=== PATIENT | male | born 1935 | race Two or more races ===

== ENCOUNTER 2018-05-15 00:04 | Inpatient (IN) | payer MEDICARE, OTHER ==
[2018-05-15] MEDS ORDERED: NALOXONE 0.4 MG/ML 1 ML VIAL IV PRN (00:17)
--- NOTE | 2018-05-15 00:22 | ED ---
General Adult HPI - General Stated complaint: weakness Time Seen by Provider: 05/15/18 00:16 - History of Present Illness Initial comments: Julito is an 82-year-old gentleman who presented to an outside hospital for evaluation of fever and cough. He was evaluated as outside hospital and found to have sepsis secondary to aspiration pneumonia in addition he was noted to be in A. fib with RVR and was hypotensive upon arrival to the ER. Heart rate and blood pressure responded to fluids he was treated with broad-spectrum antibiotics Zosyn and vancomycin and was subsequently transferred to our facility for definitive care. Per the medical record that came with the patient he does have a history of swallowing difficulty he is supposed to be on nectar thick liquids. - Related Data Home Medications Medication Instructions Recorded Confirmed Furosemide [Lasix] 80 mg PO DAILY 06/01/15 06/01/15 Levothyroxine Sodium [Synthroid] 25 mcg PO DAILY 06/01/15 06/01/15 Omeprazole 20 mg PO DAILY 06/01/15 06/01/15 Pravastatin Sodium [Pravachol] 40 mg PO DAILY 06/01/15 06/01/15 Previous Rx's Medication Instructions Recorded ALPRAZolam [Xanax] 0.25 mg PO DAILY PRN #30 tab 06/06/15 Albuterol Nebulized [Ventolin 2.5 mg INHALATION RT-QID nebu 06/06/15 Nebulized] Budesonide [Pulmicort] 0.5 mg INHALATION RT-BID nebu 06/06/15 Insulin NPH/Reg Insulin 70/30 30 unit SQ AC-BRKFST vial 06/06/15 [humuLIN 70/30 VIAL] Insulin NPH/Reg Insulin 70/30 30 unit SQ AC-SUPPER vial 06/06/15 [humuLIN 70/30 VIAL] Lisinopril [Zestril] 5 mg PO DAILY #0 tab 06/06/15 Allergies Allergy/AdvReac Type Severity Reaction Status Date / Time No Known Allergies Allergy Verified 06/01/15 18:26 Review of Systems ROS Statement: Those systems with pertinent positive or pertinent negative responses have been documented in the HPI. Limitations: ROS unobtainable due to patients medical condition (Dementia) Past Medical History Past Medical History: Heart Failure (Chronic diastolic heart failure), Dementia, Diabetes Mellitus, GERD/Reflux, Hyperlipidemia, Hypertension, Osteoarthritis (OA), Sleep Apnea/CPAP/BIPAP, Thyroid Disorder, Vascular Disorder History of Any Multi-Drug Resistant Organisms: None Reported Past Surgical History: Unable to Obtain Additional Past Surgical History / Comment(s): Bilateral cataract surgery as well as left eye glaucoma surgery. Past Anesthesia/Blood Transfusion Reactions: No Reported Reaction Past Psychological History: No Psychological Hx Reported Smoking Status: Never smoker Past Alcohol Use History: None Reported Past Drug Use History: None Reported - Past Family History Father Family Medical History: AICD/Pacemaker (Father at age of 91 and he had a permanent pacemaker placement) Mother Family Medical History: No Reported History (Mother at age of 88 from old age) Sister(s) Family Medical History: No Reported History (Patient has 2 sisters with no major medical problems) Daughter(s) Family Medical History: No Reported History (Patient has 3 daughters no major medical problems) Son(s) Family Medical History: No Reported History (Patient has one son no major medical problems) General Exam - General Exam Comments Initial Comments: Physical Exam GENERAL: Chronically Ill-appearing elderly male Orbitally obese, wet cough on exam HENT: Normocephalic, Atraumatic. Poor dentition EYES: PERRL, EOMI PULMONARY: Worse breath sounds in all lung jason Transmitted upper airway sounds CARDIOVASCULAR: Irregularly irregular ABDOMEN: Obese SKIN: Skin is clear with no lesions or rashes and otherwise unremarkable. : Deferred NEUROLOGIC: Oriented to self MUSCULOSKELETAL: Normal extremities with adequate strength and full range of motion. No lower extremity swelling or edema. No calf tenderness. PSYCHIATRIC: Normal psychiatric evaluation. Limitations: no limitations Course Vital Signs 05/15/18 00:20 Temperature 100.2 F H Pulse Rate 56 L Respiratory 20 Rate Blood Pressure 118/83 O2 Sat by Pulse 98 Oximetry EKG Findings - EKG Comments: EKG Findings:: EEG was obtained at 12:30 AM, rate is 69 rhythm is wide-complex appears to be ventricularly paced, QRS 152, QTc [address] elevations or depressions and no evidence of acute ischemia or infarction. Medical Decision Making - Medical Decision Making She care was discussed with transferring physician X and patient arrived to the hospital hemodynamically unstable tachycardic hypotensive with pneumonia. Labs were significant for leukocytosis and lactic acidosis patient met sepsis criteria he was treated with IV fluid think a myosin Zosyn and transfer to our facility for further evaluation next Upon initial evaluation patient's blood pressure has improved he remains febrile his heart rate has improved he has no complaints upon arrival he does confirm that he is DO NOT RESUSCITATE he also has paperwork to converse he is DO NOT RESUSCITATE Repeat labs were obtained care was discussed with admitting physician Dr. Zuniga per Dr. Jenaro Stanley's preference. Dr. Zuniga accepts the admission for elderly male with aspiration pneumonia and sepsis. Disposition Clinical Impression: Sepsis, Aspiration pneumonia Disposition: ADMITTED IP TO THIS HOSP Condition: Stable Is patient prescribed a controlled substance at d/c from ED?: No Referrals: Jenaro Stanley MD [Primary Care Provider] - 1-2 days
[2018-05-15 01:14] LABS: Basophils % (A) 0 %; Eosinophils # (A) 0.1 k/uL (0-0.7); Eosinophils % (A) 1 %; HCT 50.4 % (39.0-53.0); Lymphocytes # (A) 1.5 k/uL (1.0-4.8); Lymphocytes % (A) 12 %; MCH 30.2 pg (25.0-35.0); MCHC 31.8 g/dL (31.0-37.0); MCV 94.9 fL (80.0-100.0); Mean Platelet Volume 6.7; Monocytes # (A) 0.8 k/uL (0-1.0); Monocytes % (A) 7 %; Neutrophils # (A) 9.4 k/uL (1.3-7.7); Neutrophils % (A) 79 %; Platelet Count 169 k/uL (150-450); RBC 5.31 m/uL (4.30-5.90); RDW 14.8 % (11.5-15.5); WBC 11.9 k/uL (3.8-10.6)
[2018-05-15] MEDS ORDERED: ACETAMINOPHEN IV (For NPO) 1,000 MG in EMPTY BAG 1 BAG IVPB ONE (01:23)
[2018-05-15 01:29] LABS: Calcium 8.5 mg/dL (8.4-10.2); Total Bilirubin 0.9 mg/dL (0.2-1.3); Total Protein 6.1 g/dL (6.3-8.2)
[2018-05-15 01:31] LABS: INR 4.2 (<1.2); Partial Thromboplastin Time 45.1 sec (22.0-30.0); Potassium 4.6 mmol/L (3.5-5.1); Prothrombin Time 40.1 sec (9.0-12.0)
[2018-05-15 02:14] LABS: RBC,Urine 3 /hpf (0-5); Squamous Epithelial Cell,Urine 3 /hpf (0-4); WBC,Urine 30 /hpf (0-5)
[2018-05-15 02:15] LABS: Amorphous Sediment,Urine Few /hpf; Bacteria,Urine Moderate /hpf
[2018-05-15] MEDS ORDERED: SODIUM CHLORIDE 0.9% 500 ML 500 ML IV ONE ×2 (03:47→07:50)
[2018-05-15 04:15] LABS: Appearance,Urine Slightly Cloudy (Clear); Color,Urine Light Yellow; Protein,Urine Negative (Negative)
[2018-05-15] MEDS: SODIUM CHLORIDE 0.9% 1,000 ML IV SCH ×2 (04:15→11:12)
[2018-05-15 04:16] LABS: Bilirubin,Urine Negative (Negative); Blood,Urine Small (Negative); Glucose,Urine (UA) 1+ (Negative); Ketones,Urine Negative (Negative)
[2018-05-15 04:17] LABS: Leukocyte Esterase,Urine Moderate (Negative); Nitrite,Urine Positive (Negative); Urobilinogen,Urine <2.0 mg/dL (<2.0)
--- NOTE | 2018-05-15 04:22 | XR ---
EXAM: XR Chest, 1 View CLINICAL HISTORY: Aspiration PNA, judaism lung sounds. TECHNIQUE: Frontal view of the chest. COMPARISON: CXR dated 06/03/2015. FINDINGS: Lungs: Low lung volumes with probable basilar atelectasis (L>R). Retrocardiac opacity. Stable right midlung nodule/granuloma. Pleural space: Small pleural effusions not excluded. No pneumothorax. Heart: Mildly enlarged cardiac silhouette. Mediastinum: Unremarkable. Bones/joints: Stable osseous structures. Tubes, lines and devices: Stable cardiac device. IMPRESSION: 1. Low lung volumes with probable basilar atelectasis and left lung base/retrocardiac opacity which may be related to atelectasis, infiltrate, aspiration or other etiology. Recommend clinical correlation and attention on follow-up imaging. 2. Stable right midlung nodule/granuloma. 3. Small pleural effusions not excluded. 4. Mildly enlarged cardiac silhouette with stable cardiac device.
[2018-05-15] MEDS ORDERED: IPRATROPIUM-ALBUTEROL 3 ML NEB INHALATION PRN (07:55)
[2018-05-15] MEDS: BUDESONIDE 1 MG/2 ML NEBU INHALATION SCH ×2 (08:27→21:08)
[2018-05-15] MEDS: IPRATROPIUM-ALBUTEROL 3 ML NEB INHALATION SCH ×3 (08:28→21:08)
[2018-05-15 08:30] LABS: Glucose,Whole Blood 81 mg/dL (75-99)
[2018-05-15] MEDS ORDERED: BISACODYL 10 MG SUPP RECTAL PRN (08:43)
[2018-05-15] MEDS ORDERED: ACETAMINOPHEN TAB 325 MG TAB PO PRN (08:43)
[2018-05-15] MEDS ORDERED: NON-FORMULARY DRUG (Magnesium Hydroxide [Milk Of Magnesia] 2,400 MG) PO PRN (08:43)
[2018-05-15] MEDS ORDERED: NA PHOS,M-B/NA PHOS,DI-BA 133 ML ENEMA RECTAL PRN (08:43)
[2018-05-15] MEDS ORDERED: MAGNESIUM HYDROXIDE 2,400 MG/10 ML CUP PO PRN (08:49)
[2018-05-15] MEDS ORDERED: OSELTAMIVIR 75 MG CAP PO SCH (09:00)
[2018-05-15] MEDS: PIPERACILLIN-TAZOBACTAM 3.375 GM in SODIUM CHLORIDE 0.9% 100 ML IVPB SCH ×2 (11:12→16:27)
--- NOTE | 2018-05-15 12:49 | FL ---
EXAMINATION TYPE: FL barium swallow w video DATE OF EXAM: 05/15/2018 MODIFIED SWALLOW / DEGLUTITION STUDY CLINICAL HISTORY: Dysphagia. TECHNIQUE: Deglutition study is performed utilizing thin liquid barium, honey and nectar thick liqui d barium and barium thick applesauce. 1.45 minutes of fluoroscopy time was utilized. 0 fluoroscopic i mages were saved as the exam was video recorded. COMPARISON: None. FINDINGS: The oral and pharyngeal phases show delayed initiation and propagation with all modalities tested. Premature spill to the level of the vallecula was seen. Normal mastication is seen with solid modalities tested. Trace and transient laryngeal penetration was noted with the honey thick barium c onsistency with large vallecular residuals. Within the remainder the examination there was no evidenc e of penetration or aspiration with any modality tested. Large volume vallecular residual was appreci ated throughout the exam, worsened with thicker substances. IMPRESSION: 1. Trace and transient laryngeal penetration. 2. Large degree vallecular residuals, increased in volume with increased viscosity. 3. Poor vallecular excursion. 4. Premature spill to the level of vallecula. Please refer to speech therapist notes for further deta ils if necessary.
[2018-05-15] MEDS: INSULIN ASPART (NovoLOG) 100 UNIT/ML VIAL SQ SCH ×3 (12:51→21:45)
[2018-05-15 12:52] LABS: Glucose,Whole Blood 123 mg/dL (75-99)
[2018-05-15] MEDS: ARTIFICIAL TEARS-HYPROMELLOSE DROPS 15 ML BTL BOTH EYES SCH ×3 (12:53→21:43)
--- NOTE | 2018-05-15 13:17 | P.HPIM ---
History of Present Illness H&P Date: 05/15/18 Chief Complaint: Acute respiratory failure, aspiration pneumonia, sepsis, A. fib with RVR 82-year-old male one of Dr. Jenaro Stanley's patient who has history of mild obesity history of dementia congestive heart failure hypertension hyperlipidemia and vascular disease who was transferred from [facility] because of aspiration pneumonia sepsis and A. fib with RVR with significant hypotension arrived to the emergency room found to be in A. fib with pulse rate running in the 70s and 80s patient blood pressure was significantly bit low had to hold some of his blood pressure medicine. Patient was already on gram- negative coverage originally admitted to the floor shortly after blood pressure become very low with elevated lactic acid despite using 1 L of IV fluid than 500 bolus continue to work on blood pressure in the 70s. Patient was seen by the 18 and stabilized slight bed continue IV hydration will consult pulmonary and cardiology for the A. fib at this point awaiting for the final culture. Review of Systems CONSTITUTIONAL: Mildly obese laying in bed with head 45 up also patient has low-grade fever. EYES: No icterus sclerae, no conjunctivitis. EARS, NOSE, MOUTH, THROAT, and FACE: No sore throat, lymphadenopathy, carotid bruits or deformity. RESPIRATORY: Significant shortness of breath cough wheezes. CARDIOVASCULAR: Positive shortness of breath PND orthopnea and edema with mild palpitation and A. fib. GASTROINTESTINAL: Mild abdominal pain with nausea no vomiting or diarrhea. GENITOURINARY: Negative for Hematuria or UTI, no kidney stones. INTEGUMENT/BREAST: Negative for any muscular injury with mild osteoarthritis.. HEMATOLOGIC/LYMPHATIC: Negative for bleed or purpura. MUSCULOSKELTAL: Negative for Myalgia or arthralgia. NEURLOGICAL: History of dementia with the mild altered mental status. BEHAVIORAL/PSYCH: Negative. ENDOCRINE: Negative. Past Medical History Past Medical History: Heart Failure (Chronic diastolic heart failure), Dementia, Diabetes Mellitus, GERD/Reflux, Hyperlipidemia, Hypertension, Osteoarthritis (OA), Sleep Apnea/CPAP/BIPAP, Thyroid Disorder, Vascular Disorder History of Any Multi-Drug Resistant Organisms: None Reported Past Surgical History: Unable to Obtain Additional Past Surgical History / Comment(s): Bilateral cataract surgery as well as left eye glaucoma surgery. Past Anesthesia/Blood Transfusion Reactions: No Reported Reaction Past Psychological History: No Psychological Hx Reported Smoking Status: Never smoker Past Alcohol Use History: None Reported Past Drug Use History: None Reported - Past Family History Father Family Medical History: AICD/Pacemaker (Father at age of 91 and he had a permanent pacemaker placement) Mother Family Medical History: No Reported History (Mother at age of 88 from old age) Sister(s) Family Medical History: No Reported History (Patient has 2 sisters with no major medical problems) Daughter(s) Family Medical History: No Reported History (Patient has 3 daughters no major medical problems) Son(s) Family Medical History: No Reported History (Patient has one son no major medical problems) Medications and Allergies Home Medications Medication Instructions Recorded Confirmed Type Acetaminophen Tab [Tylenol Tab] 650 mg PO Q4H PRN 05/15/18 05/15/18 History Artificial Tears-Hypromellose 1 drops BOTH EYES 05/15/18 05/15/18 History [Artificial Tear Drops] TID@1100,1700,2100 Bisacodyl 10 mg RECTAL DAILY PRN 05/15/18 05/15/18 History Divalproex Sodium [Depakote 375 mg PO TID@0700,1500,2300 05/15/18 05/15/18 History Sprinkle] Insulin Glargine,Hum.rec.anlog 25 unit SQ HS@199905/15/18 05/15/18 History [Lantus Solostar] Insulin Glargine,Hum.rec.anlog 40 unit SQ DAILY@0700 05/15/18 05/15/18 History [Lantus Solostar] Magnesium Hydroxide [Milk of 2,400 mg PO DAILY PRN 05/15/18 05/15/18 History Magnesia] Na Phos,M-B/Na Phos,Di-Ba [Fleet 133 ml RECTAL DAILY PRN 05/15/18 05/15/18 History Adult] QUEtiapine [SEROquel] 50 mg PO HS@2100 05/15/18 05/15/18 History Ranitidine HCl [Zantac] 150 mg PO BID@0500,1500 05/15/18 05/15/18 History Sertraline [Zoloft] 25 mg PO DAILY@0700 05/15/18 05/15/18 History Sertraline [Zoloft] 100 mg PO DAILY@0700 05/15/18 03/25/19 History Tamsulosin HCl [Flomax] 0.4 mg PO DAILY@0705/15/18 05/15/18 History Travoprost [Travatan Z 0.004%] 1 drop BOTH EYES HS@199905/15/18 05/15/18 History Warfarin Sodium [Coumadin] 6 mg PO HS@209905/15/18 05/15/18 History Allergies Allergy/AdvReac Type Severity Reaction Status Date / Time No Known Allergies Allergy Verified 05/15/18 08:18 Physical Exam Vitals: Vital Signs Temp Pulse Pulse Resp BP BP BP 05/15/18 12:24 70 107/70 05/15/18 08:44 76 05/15/18 08:31 70 05/15/18 07:43 70 112/67 05/15/18 07:30 69 72/47 05/15/18 07:20 69 81/49 05/15/18 07:00 98.3 F 69 93/58 05/15/18 05:25 69 82/48 05/15/18 04:59 69 81/51 05/15/18 04:30 72 87/48 05/15/18 03:57 69 94/57 05/15/18 03:10 98.7 F 18 81/48 79/39 05/15/18 02:26 69 20 117/69 05/15/18 01:01 69 22 133/78 05/15/18 00:20 100.2 F H 56 L 20 118/83 Pulse Ox 05/15/18 12:24 05/15/18 08:44 05/15/18 08:31 96 05/15/18 07:43 98 05/15/18 07:30 96 05/15/18 07:20 98 05/15/18 07:00 97 05/15/18 05:25 05/15/18 04:59 05/15/18 04:30 05/15/18 03:57 05/15/18 03:10 97 05/15/18 02:26 98 05/15/18 01:01 98 05/15/18 00:20 98 Intake and Output 05/14/18 05/15/18 05/15/18 22:59 06:59 14:59 Intake Total 575 Balance 575 Intake: Intake, IV Titration 575 Amount Sodium Chloride 0.9% 1, 75 000 ml @ 75 mls/hr IV . [id number] Rx#:[id number] Sodium Chloride 0.9% 500 500 ml 500 ml @ 999 mls/hr IV .Q31M ONE Rx#:[id number] Other: Voiding Method Incontinent # Voids 1 Weight 100.244 kg General Appearance: Mildly obese elderly laying in bed in mild respiratory distress. Neck HEENT: Supple, no lymphadenopathy, no thyroid enlargement, no carotid b ruits. Lungs: Decreased breath some relative final hyposmotic crackles in the bases specially in the right side. Chest Wall: Decrease expansion with deep inspiration no tenderness and no deformity was found on exam, no costochondral pain or discomfort. Heart: Irregular rate and rhythm, S1, S2 normal, no murmur, rub or gallop. Positive JVD Back: Symmetric, no curvature, ROM normal, no CVA tenderness. Abdomen: Slightly distended with no tenderness., bowel sounds active all four quadrants, no masses, no organomegaly. Extremities: Extremities normal, atraumatic, no cyanosis or edema. Pulses: 2+ and symmetric. Skin: Skin color, texture, tugor normal, no rashes or lesions. Neurologic: Alert oriented with slight confusion cranial nerves II through XII intact, no motor deficit, no abnormal balance or gait. Results CBC & Chem 7: 05/15/18 00:50 05/15/18 00:50 Labs: Abnormal Lab Results - Last 24 Hours (Table) 05/15/18 05/15/18 05/15/18 Range/Units 00:50 00:50 00:50 WBC 11.9 H (3.8-10.6) k/uL Neutrophils # 9.4 H (1.3-7.7) k/uL PT 40.1 H (9.0-12.0) sec INR 4.2 H (<1.2) APTT 45.1 H (22.0-30.0) sec Glucose 120 H (74-99) mg/dL POC Glucose (mg/dL) (75-99) mg/dL Total Protein 6.1 L (6.3-8.2) g/dL Albumin 3.0 L (3.5-5.0) g/dL Urine Glucose (UA) (Negative) Urine WBC (0-5) /hpf Amorphous Sediment (None) /hpf Urine Bacteria (None) /hpf Influenza Type A RNA (Not Detectd) 05/15/18 05/15/18 05/15/18 Range/Units 01:08 08:00 12:40 WBC (3.8-10.6) k/uL Neutrophils # (1.3-7.7) k/uL PT (9.0-12.0) sec INR (<1.2) APTT (22.0-30.0) sec Glucose (74-99) mg/dL POC Glucose (mg/dL) 123 H (75-99) mg/dL Total Protein (6.3-8.2) g/dL Albumin (3.5-5.0) g/dL Urine Glucose (UA) 1+ H (Negative) Urine WBC 30 H (0-5) /hpf Amorphous Sediment Few H (None) /hpf Urine Bacteria Moderate H (None) /hpf Influenza Type A RNA Detected H (Not Detectd) Microbiology - Last 24 Hours (Table) 05/15/18 01:08 Urine Culture - Preliminary Urine,Voided Thrombosis Risk Factor Assmnt - DVT/VTE Prophylaxis DVT/VTE Prophylaxis: Pharmacologic Prophylaxis ordered, Mechanical Prophylaxis ordered Assessment and Plan Plan: 1 acute respiratory failure: Combination of aspiration pneumonia, influenza, CHF and COPD. 2 aspiration pneumonia: Most likely gram-negative was start patient on Zosyn and if needed can benefit from being on Levaquin and second agent. 3 sepsis with improvement lactic acid continue hydration and fluid resuscitation for now. 4 influenza A patient will continue be in isolation start Tamiflu continue O2 and updraft treatment. 5 COPD exacerbation: Continue patient on DuoNeb and Pulmicort no need for steroid tapering dose of this point. 6 A. fib with RVR: Pulse rate was slightly but elevated not been able to take his beta eboni continue ekg monitor tech cardiology consultation and if needed can be started on Cardizem drip. Continue warfarin keep watching his coagulation. 7 worsening memory loss: Patient apparently doing well on Seroquel had for now. 8 BPH: Remain on Flomax with no urinary retention. 9 depression: Still on Zoloft and Seroquel. 10 type 2 diabetes: Remain on Levemir and Humalog continue patient with Accu- Chek sliding scales as well. 11 coagulation: Patient is slightly but over coagulated currently with INR is high we'll hold warfarin for now continue to watch his PT/INR on regular basis. 12 DVT prophylaxis: Remain on anticoagulation. 13 GI prophylaxis: Patient will be continue on pantoprazole 40 mg daily. 14 question Lev UTI: Patient is on IV antibiotic currently waiting for the final urine culture. CODE STATUS: DO NOT RESUSCITATE. Admit patient to inpatient status for more than 2 nights.
--- NOTE | 2018-05-15 14:12 | P.CRDCN ---
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 He follows with Dr. Gilmore in the office. We have been asked to see him in consultation for an episode of atrial fibrillation with rapid ventricular response. Patient is a poor historian and appears confused at baseline, unable to give any information regarding current hospitalization. Information is obtained from nursing staff and medical record. He was transferred here from [facility] for fever, cough, aspiration pneumonia and afib. Upon arrival he was maintaining atrial fibrillation with a controlled ventricular response heart rate 69. Blood pressure was 118/83 and was febrile 100.2F and is positive for Influenza A. He has been started on antibiotics and undergone a barium swallow study revealing trace and changes. Pharyngeal penetration, large degree of vallecular residuals, poor vallecular excursion, p rematures to the level of the ocular. EKG reveals ventricular paced rhythm with underlying atrial fibrillation, heart rate is 69. Chest x-ray reveals low lung volumes with probable basilar atelectasis and left lung retrograde obesity, stable right mid lung nodule, small pleural effusions and mildly enlarged cardiac silhouette. Laboratory data reviewed, WBC 11.9, hemoglobin 16, platelets 169, INR 4.2, sodium 137, potassium 4.6, creatinine 1.08. Current cardiac medications include Coumadin 6 mg daily. Most recent echocardiogram obtained May 2015 reveals preserved LV systolic function with EF 50-55%, mild MR, mild TR and mild aortic stenosis with a mean gradient of 15 mmHg. Unable to obtain accurate review of systems due to altered mental status. Blood pressure 170/70 heart rate 70 afebrile maintaining oxygen saturation on nasal cannula GENERAL: This is a 82-year-old male in no apparent distress at the time of my examination. HEENT: Head is atraumatic, normocephalic. Pupils are equal, round. Sclerae anicteric. Conjunctivae are clear. Mucous membranes of the mouth are moist. Neck is supple. There is no jugular venous distention. No carotid bruit is heard. LUNGS: Bibasilar rales and coarse rhonchi throughout. No wheezes. No chest wall tenderness is noted on palpation or with deep breathing. HEART: Regular rate and rhythm with systolic ejection murmur at the base, no rubs or gallops. S1 and S2 heard. ABDOMEN: Soft, nontender. Bowel sounds are heard. No organomegaly noted. EXTREMITIES: 1+ bilateral lower extremity edema and erythma. No calf tenderness noted. VASCULAR: Radial and dorsalis pedis pulses palpated, no evidence of clubbing. NEUROLOGIC: Patient is awake, alert and oriented x3. ASSESSMENT Chronic persistent atrial fibrillation on long-term anticoagulation with coumadin Supratherapeutic INR Acute aspiration pneumonia Influenza A Febrile illness Leukocytosis Altered mental status History of complete heart block status post permanent pacemaker implantation Diabetes mellitus Hypertension Dyslipidemia Obstructive sleep apnea Chronic diastolic heart failure PLAN Check NTproBNP, if normal no heart failure currently. Atrial fibrillation is chronic and persistent, his documented heart rates have been well controlled. Discontinue coumadin and consider Eliquis once INR is below 2. Repeat echocardiogram and doppler study to assess cardiac structure and function. Initiate on atorvastatin 40 mg daily. Further recommendations to follow based upon clinical course. Thank you kindly for this consultation. Nurse Practitioner note has been reviewed, I agree with a documented findings and plan of care. Patient was seen and examined. Past Medical History Past Medical History: Heart Failure (Chronic diastolic heart failure), Dementia, Diabetes Mellitus, GERD/Reflux, Hyperlipidemia, Hypertension, Osteoarthritis (OA), Sleep Apnea/CPAP/BIPAP, Thyroid Disorder, Vascular Disorder History of Any Multi-Drug Resistant Organisms: None Reported Past Surgical History: Unable to Obtain Additional Past Surgical History / Comment(s): Bilateral cataract surgery as well as left eye glaucoma surgery. Past Anesthesia/Blood Transfusion Reactions: No Reported Reaction Past Psychological History: No Psychological Hx Reported Smoking Status: Never smoker Past Alcohol Use History: None Reported Past Drug Use History: None Reported - Past Family History Father Family Medical History: AICD/Pacemaker (Father at age of 91 and he had a permanent pacemaker placement) Mother Family Medical History: No Reported History (Mother at age of 88 from old age) Sister(s) Family Medical History: No Reported History (Patient has 2 sisters with no major medical problems) Daughter(s) Family Medical History: No Reported History (Patient has 3 daughters no major m edical problems) Son(s) Family Medical History: No Reported History (Patient has one son no major medical problems) Medications and Allergies Home Medications Medication Instructions Recorded Confirmed Type Acetaminophen Tab [Tylenol Tab] 650 mg PO Q4H PRN 05/15/18 05/15/18 History Artificial Tears-Hypromellose 1 drops BOTH EYES 05/15/18 05/15/18 History [Artificial Tear Drops] TID@1100,1700,2100 Bisacodyl 10 mg RECTAL DAILY PRN 05/15/18 05/15/18 History Divalproex Sodium [Depakote 375 mg PO TID@0700,1500,2300 05/15/18 05/15/18 History Sprinkle] Insulin Glargine,Hum.rec.anlog 25 unit SQ HS@199905/15/18 05/15/18 History [Lantus Solostar] Insulin Glargine,Hum.rec.anlog 40 unit SQ DAILY@0705/15/18 05/15/18 History [Lantus Solostar] Magnesium Hydroxide [Milk of 2,400 mg PO DAILY PRN 05/15/18 05/15/18 History Magnesia] Na Phos,M-B/Na Phos,Di-Ba [Fleet 133 ml RECTAL DAILY PRN 05/15/18 05/15/18 History Adult] QUEtiapine [SEROquel] 50 mg PO HS@209905/15/18 05/15/18 History Ranitidine HCl [Zantac] 150 mg PO BID@0500,1500 05/15/18 05/15/18 History Sertraline [Zoloft] 25 mg PO DAILY@0700 05/15/18 05/15/18 History Sertraline [Zoloft] 100 mg PO DAILY@0700 05/15/18 05/15/18 History Tamsulosin HCl [Flomax] 0.4 mg PO DAILY@0700 05/15/18 05/15/18 History Travoprost [Travatan Z 0.004%] 1 drop BOTH EYES HS@199905/15/18 05/15/18 History Warfarin Sodium [Coumadin] 6 mg PO HS@209905/15/18 05/15/18 History Allergies Allergy/AdvReac Type Severity Reaction Status Date / Time No Known Allergies Allergy Verified 05/15/18 08:18 Physical Exam Vitals: Vital Signs Temp Pulse Pulse Resp BP BP BP 05/15/18 12:24 70 107/70 05/15/18 08:44 76 05/15/18 08:31 70 05/15/18 07:43 70 112/67 05/15/18 07:30 69 72/47 05/15/18 07:20 69 81/49 05/15/18 07:00 98.3 F 69 93/58 05/15/18 05:25 69 82/48 05/15/18 04:59 69 81/51 05/15/18 04:30 72 87/48 05/15/18 03:57 69 94/57 05/15/18 03:10 98.7 F 18 81/48 79/39 05/15/18 02:26 69 20 117/69 05/15/18 01:01 69 22 133/78 05/15/18 00:20 100.2 F H 56 L 20 118/83 Pulse Ox 05/15/18 12:24 05/15/18 08:44 05/15/18 08:31 96 05/15/18 07:43 98 05/15/18 07:30 96 05/15/18 07:20 98 05/15/18 07:00 97 05/15/18 05:25 05/15/18 04:59 05/15/18 04:30 05/15/18 03:57 05/15/18 03:10 97 05/15/18 02:26 98 05/15/18 01:01 98 05/15/18 00:20 98 Intake and Output 05/14/18 05/15/18 05/15/18 22:59 06:59 14:59 Intake Total 575 Balance 575 Intake: Intake, IV Titration 575 Amount Sodium Chloride 0.9% 1, 75 000 ml @ 75 mls/hr IV . [id number] [facility] Rx#:[id number] Sodium Chloride 0.9% 500 500 ml 500 ml @ 999 mls/hr IV .Q31M [facility] Rx#:[id number] Other: Voiding Method Incontinent # Voids 1 Weight 100.244 kg Results 05/15/18 00:50 05/15/18 00:50 Cardiac Enzymes 05/15/18 Range/Units 00:50 AST 36 (17-59) U/L Coagulation 05/15/18 Range/Units 00:50 PT 40.1 H (9.0-12.0) sec APTT 45.1 H (22.0-30.0) sec CBC 05/15/18 Range/Units 00:50 WBC 11.9 H (3.8-10.6) k/uL RBC 5.31 (4.30-5.90) m/uL Hgb 16.0 (13.0-17.5) gm/dL Hct 50.4 (39.0-53.0) % Plt Count 169 (150-450) k/uL Comprehensive Metabolic Panel 05/15/18 Range/Units 00:50 Sodium 137 (137-145) mmol/L Potassium 4.6 (3.5-5.1) mmol/L Chloride 106 (98-107) mmol/L Carbon Dioxide 25 (22-30) mmol/L BUN 20 (9-20) mg/dL Creatinine 1.08 (0.66-1.25) mg/dL Glucose 120 H (74-99) mg/dL Calcium 8.5 (8.4-10.2) mg/dL AST 36 (17-59) U/L ALT 26 (21-72) U/L Alkaline Phosphatase 95 (38-126) U/L Total Protein 6.1 L (6.3-8.2) g/dL Albumin 3.0 L (3.5-5.0) g/dL Current Medications Generic Name Dose Route Start Last Admin Trade Name Freq PRN Reason Stop Dose Admin Acetaminophen 650 mg 05/15/18 08:43 Tylenol Tab PO Q4H PRN Pain or Fever > 100.5 Albuterol/Ipratropium 3 ml 05/15/18 08:00 05/15/18 08:28 Duoneb 0.5 Mg-3 Mg/3 Ml Soln INHALATION 3 ml RT-TID [facility] Administration Albuterol/Ipratropium 3 ml 05/15/18 07:55 Duoneb 0.5 Mg-3 Mg/3 Ml Soln INHALATION RT-QID PRN Shortness Of Breath Or Wheezing Artificial Tears 1 drops 05/15/18 11:00 05/15/18 12:53 Artificial Tear Drops BOTH EYES 1 drops TID@1100,1700,2100 [facility] Administration Bisacodyl 10 mg 05/15/18 08:43 Dulcolax RECTAL DAILY PRN Constipation Budesonide 1 mg 05/15/18 08:00 05/15/18 08:27 Pulmicort INHALATION 1 mg RT-BID [facility] Administration Divalproex Sodium 375 mg 05/15/18 15:00 Depakote Sprinkle PO TID@0700,1500,2300 [facility] Famotidine 20 mg 05/15/18 15:00 Pepcid PO BID@0500,1500 [facility] Sodium Chloride 1,000 mls @ 100 mls/hr 05/15/18 04:15 05/15/18 11:12 Saline 0.9% IV 100 mls/hr .Q10H [facility] Administration Piperacillin Sod/Tazobactam 100 mls @ 25 mls/hr 05/15/18 08:00 05/15/18 11:12 Sod 3.375 gm/ Sodium Chloride IVPB 25 mls/hr Q8HR [facility] Administration Insulin Aspart 0 unit 05/15/18 12:30 05/15/18 12:51 Novolog SQ Not Given ACHS [facility] Protocol Insulin Detemir 12 unit 05/15/18 20:00 Levemir SQ HS@2000 [facility] Insulin Detemir 20 unit 05/16/18 07:00 Levemir SQ DAILY@0700 [facility] Latanoprost 1 drops 05/15/18 20:00 Xalatan 0.005% BOTH EYES HS@2000 [facility] Magnesium Hydroxide 2,400 mg 05/15/18 08:49 Milk Of Magnesia PO DAILY PRN Constipation Naloxone HCl 0.2 mg 05/15/18 00:17 Narcan IV Q2M PRN Opioid Reversal Oseltamivir Phosphate 75 mg 05/15/18 09:00 05/15/18 11:13 Tamiflu PO 05/19/18 21:01 Not Given Q12HR [facility] Quetiapine Fumarate 50 mg 05/15/18 21:00 Seroquel PO HS@2100 [facility] Sertraline HCl 25 mg 05/16/18 07:00 Zoloft PO DAILY@0700 [facility] Sertraline HCl 100 mg 05/16/18 07:00 Zoloft PO DAILY@0700 [facility] Sodium Biphosphate/Sodium Phosphate 133 ml 05/15/18 08:43 Fleet Adult RECTAL DAILY PRN Constipation Tamsulosin HCl 0.4 mg 05/16/18 07:00 Flomax PO DAILY@0700 [facility] Intake and Output 05/14/18 05/15/18 05/15/18 22:59 06:59 14:59 Intake Total 575 Balance 575 Intake: Intake, IV Titration 575 Amount Sodium Chloride 0.9% 1, 75 000 ml @ 75 mls/hr IV . [id number] [facility] Rx#:[id number] Sodium Chloride 0.9% 500 500 ml 500 ml @ 999 mls/hr IV .Q31M [facility] Rx#:[id number] Other: Voiding Method Incontinent # Voids 1 Weight 100.244 kg 05/15/18 00:50 05/15/18 00:50
--- NOTE | 2018-05-15 16:00 | P.CNPUL ---
History of Present Illness Consult date: 05/15/18 Reason for consult: dyspnea, pneumonia History of present illness: This is an 82-year-old gentleman who presented to the emergency department from an outside facility. The patient was found to have pneumonia and sepsis. He was also in atrial fibrillation with rapid ventricular response. He had hypotension as well. He was given IV fluid resuscitations. The patient is seen and examined. He is a poor historian. He states he does not feel good. He does have a coarse cough. The patient did have fever prior to admission. His chest x-ray shows a left retrocardiac infiltrate. He was also positive for influenza A. Review of Systems All systems: negative Past Medical History Past Medical History: Heart Failure (Chronic diastolic heart failure), Dementia, Diabetes Mellitus, GERD/Reflux, Hyperlipidemia, Hypertension, Osteoarthritis (OA), Sleep Apnea/CPAP/BIPAP, Thyroid Disorder, Vascular Disorder History of Any Multi-Drug Resistant Organisms: None Reported Past Surgical History: Unable to Obtain Additional Past Surgical History / Comment(s): Bilateral cataract surgery as we ll as left eye glaucoma surgery. Past Anesthesia/Blood Transfusion Reactions: No Reported Reaction Past Psychological History: No Psychological Hx Reported Smoking Status: Never smoker Past Alcohol Use History: None Reported Past Drug Use History: None Reported - Past Family History Father Family Medical History: AICD/Pacemaker (Father at age of 91 and he had a permanent pacemaker placement) Mother Family Medical History: No Reported History (Mother at age of 88 from old age) Sister(s) Family Medical History: No Reported History (Patient has 2 sisters with no major medical problems) Daughter(s) Family Medical History: No Reported History (Patient has 3 daughters no major medical problems) Son(s) Family Medical History: No Reported History (Patient has one son no major medica l problems) Medications and Allergies Home Medications Medication Instructions Recorded Confirmed Type Acetaminophen Tab [Tylenol Tab] 650 mg PO Q4H PRN 05/15/18 05/15/18 History Artificial Tears-Hypromellose 1 drops BOTH EYES 05/15/18 05/15/18 History [Artificial Tear Drops] TID@1100,1700,2100 Bisacodyl 10 mg RECTAL DAILY PRN 05/15/18 05/15/18 History Divalproex Sodium [Depakote 375 mg PO TID@0700,1500,2300 05/15/18 05/15/18 History Sprinkle] Insulin Glargine,Hum.rec.anlog 25 unit SQ HS@199905/15/18 05/15/18 History [Lantus Solostar] Insulin Glargine,Hum.rec.anlog 40 unit SQ DAILY@0700 05/15/18 05/15/18 History [Lantus Solostar] Magnesium Hydroxide [Milk of 2,400 mg PO DAILY PRN 05/15/18 05/15/18 History Magnesia] Na Phos,M-B/Na Phos,Di-Ba [Fleet 133 ml RECTAL DAILY PRN 05/15/18 05/15/18 History Adult] QUEtiapine [SEROquel] 50 mg PO HS@209905/15/18 05/15/18 History Ranitidine HCl [Zantac] 150 mg PO BID@0500,1500 05/15/18 05/15/18 History Sertraline [Zoloft] 25 mg PO DAILY@0700 05/15/18 05/15/18 History Sertraline [Zoloft] 100 mg PO DAILY@0700 05/15/18 05/15/18 History Tamsulosin HCl [Flomax] 0.4 mg PO DAILY@0705/15/18 05/15/18 History Travoprost [Travatan Z 0.004%] 1 drop BOTH EYES HS@199905/15/18 05/15/18 History Warfarin Sodium [Coumadin] 6 mg PO HS@209905/15/18 05/15/18 History Allergies Allergy/AdvReac Type Severity Reaction Status Date / Time No Known Allergies Allergy Verified 05/15/18 08:18 Physical Exam Osteopathic Statement: *. No significant issues noted on an osteopathic structural exam other than those noted in the History and Physical/Consult. Vitals: Vital Signs Temp Pulse Pulse Resp BP BP BP 05/15/18 14:20 99.2 F 69 122/72 05/15/18 13:31 70 05/15/18 13:18 70 05/15/18 12:24 70 107/70 05/15/18 08:44 76 05/15/18 08:31 70 05/15/18 07:43 70 112/67 05/15/18 07:30 69 72/47 05/15/18 07:20 69 81/49 05/15/18 07:00 98.3 F 69 93/58 05/15/18 05:25 69 82/48 05/15/18 04:59 69 81/51 05/15/18 04:30 72 87/48 05/15/18 03:57 69 94/57 05/15/18 03:10 98.7 F 18 81/48 79/39 05/15/18 02:26 69 20 117/69 05/15/18 01:01 69 22 133/78 05/15/18 00:20 100.2 F H 56 L 20 118/83 Pulse Ox 05/15/18 14:20 92 L 05/15/18 13:31 05/15/18 13:18 05/15/18 12:24 05/15/18 08:44 05/15/18 08:31 96 05/15/18 07:43 98 05/15/18 07:30 96 05/15/18 07:20 98 05/15/18 07:00 97 05/15/18 05:25 05/15/18 04:59 05/15/18 04:30 05/15/18 03:57 05/15/18 03:10 97 05/15/18 02:26 98 05/15/18 01:01 98 05/15/18 00:20 98 Intake and Output 05/15/18 05/15/18 05/15/18 06:59 14:59 22:59 Intake Total 575 Balance 575 Intake: Intake, IV Titration 575 Amount Sodium Chloride 0.9% 1, 75 000 ml @ 75 mls/hr IV . [id number] [facility] Rx#:[id number] Sodium Chloride 0.9% 500 500 ml 500 ml @ 999 mls/hr IV .Q31M [facility] Rx#:[id number] Other: Voiding Method Incontinent Incontinent # Voids 1 Weight 100.244 kg General: Patient is alert, poor historian, no acute distress Cardiovascular: Regular rate and rhythm, S1/S2 Lungs: Coarse breath sounds bilaterally Abdomen: Soft nontender nondistended positive bowel sounds Extremities: No edema Results - Laboratory Findings CBC and BMP: 05/15/18 00:50 05/15/18 00:50 PT/INR, D-dimer PT 40.1 sec (9.0-12.0) H 05/15/18 00:50 INR 4.2 (<1.2) H 05/15/18 00:50 Abnormal lab findings: Abnormal Labs 05/15/18 05/15/18 05/15/18 00:50 00:50 00:50 WBC 11.9 H Neutrophils # 9.4 H PT 40.1 H INR 4.2 H APTT 45.1 H Glucose 120 H POC Glucose (mg/dL) Total Protein 6.1 L Albumin 3.0 L Urine Glucose (UA) Urine WBC Amorphous Sediment Urine Bacteria Influenza Type A RNA 05/15/18 05/15/18 05/15/18 01:08 08:00 12:40 WBC Neutrophils # PT INR APTT Glucose POC Glucose (mg/dL) 123 H Total Protein Albumin Urine Glucose (UA) 1+ H Urine WBC 30 H Amorphous Sediment Few H Urine Bacteria Moderate H Influenza Type A RNA Detected H Assessment and Plan Assessment: Acute hypoxic respiratory failure Community-acquired pneumonia, possible aspiration Influenza A Acute exacerbation of COPD Sepsis with hypotension, resolved with IV fluid resuscitation Dysphasia Atrial fibrillation with RVR, chronic persistent BPH Depression Coumadin coagulopathy History of complete heart block, s/p PPM DM2 Hypertension Dyslipidemia LEONCIO Diastolic CHF O2 to maintain saturation greater than or equal to 90%, patient currently 98% on 3 L nasal cannula Antibiotics: Zosyn Tamiflu Blood, urine, sputum cultures Echocardiogram pending Pulmicort and Damari's Singulair Blood sugar control Aspiration precautions Cardiology recommendations Thank you for this consultation. We will continue to follow along.
[2018-05-15] MEDS: FAMOTIDINE 20 MG TAB PO SCH (16:27)
[2018-05-15] MEDS: DIVALPROEX SPRINKLE 125 MG CAP.SPRINK PO SCH (16:27)
[2018-05-15 17:20] LABS: Glucose,Whole Blood 200 mg/dL (75-99)
[2018-05-15] MEDS ORDERED: INSULIN DETEMIR (LEVEMIR) 100 UNIT/ML SYR SQ SCH (20:00)
[2018-05-15 21:32] LABS: Glucose,Whole Blood 300 mg/dL (75-99)
[2018-05-15] MEDS: ATORVASTATIN 40 MG TAB PO SCH (21:32)
[2018-05-15] MEDS: LATANOPROST 0.005% OPHTH DROPS 2.5 ML BTL BOTH EYES SCH (21:32)
[2018-05-15] MEDS: MONTELUKAST 10 MG TAB PO SCH (21:38)
[2018-05-15] MEDS: OSELTAMIVIR 60 MG/10 ML ORAL SYRINGE PO SCH (21:40)
[2018-05-16] MEDS: QUEtiapine 50 MG TAB PO SCH ×2 (00:32→21:24)
[2018-05-16] MEDS: DIVALPROEX SPRINKLE 125 MG CAP.SPRINK PO SCH ×4 (00:32→23:41)
[2018-05-16] MEDS: PIPERACILLIN-TAZOBACTAM 3.375 GM in SODIUM CHLORIDE 0.9% 100 ML IVPB SCH ×4 (00:32→23:41)
[2018-05-16] MEDS: SODIUM CHLORIDE 0.9% 1,000 ML IV SCH ×3 (03:36→23:42)
[2018-05-16] MEDS: FAMOTIDINE 20 MG TAB PO SCH ×2 (05:09→15:35)
[2018-05-16] MEDS ORDERED: INSULIN DETEMIR (LEVEMIR) 100 UNIT/ML SYR SQ SCH (07:00)
[2018-05-16 07:17] LABS: Glucose,Whole Blood 131 mg/dL (75-99)
[2018-05-16 08:23] LABS: INR 2.3 (<1.2); Prothrombin Time 22.3 sec (9.0-12.0)
--- NOTE | 2018-05-16 08:41 | ECHOF ---
Referral Reason:sob MEASUREMENTS -------- HEIGHT: 170.2 cm WEIGHT: 100.2 kg BP: 112/67 RVIDd: 3.3 cm (< 3.3) IVSd: 1.2 cm (0.6 - 1.1) LVIDd: 3.8 cm (3.9 - 5.3) LVPWd: 1.1 cm (0.6 - 1.1) IVSs: 1.5 cm LVIDs: 2.4 cm LVPWs: 1.5 cm LAESV Index (A-L): 17.98 ml/m Ao Diam: 2.5 cm (2.0 - 3.7) AV Cusp: 1.5 cm (1.5 - 2.6) LA Diam: 3.1 cm (2.7 - 3.8) MV E Nahun: 1.52 m/s MV DecT: 191 ms MV A Nahun: 0.68 m/s MV E/A Ratio: 2.25 AV maxP.93 mmHg AV meanP.16 mmHg RAP: 15.00 mmHg RVSP: 55.87 mmHg FINDINGS -------- Paced rhythm. This was a technically difficult study with suboptimal views. The left ventricular size is normal. There is mild concentric left ventricular hypertrophy. Overa ll left ventricular systolic function is normal with, an EF between 55 - 60 %. The right ventricle is mildly enlarged. Normal LA size by volume 22+/-6 ml/m2. Electronic pacemaker lead seen in the right ventricular cavity. RA appears enlarged. There is moderate aortic valve sclerosis. There is no evidence of aortic regurgitation. There is moderate aortic stenosis present. Peak/mean gradient across the Aortic Valve is 32.93mmHg / 24.16mm Hg. The mitral valve leaflets are mild to moderately thickened. Mild mitral regurgitation is present. Mild mitral stenosis. The peak and mean MV gradients are 12.89mmHg 3.94mmHg as measured by doppl er. Mild tricuspid regurgitation present. There is mild to moderate pulmonary hypertension. The right ventricular systolic pressure, as measured by Doppler, is 55.87mmHg. The pulmonic valve was not well visualized. The aortic root size is normal. The inferior vena cava is dilated with poor inspiratory collapse which is consistent with estimated r ight atrial pressure of 20 mmHg. Echo free space indicative of a pericardial fat pad. There is no pericardial effusion. 4 ml of Lumason was utilized for enhancement of images. CONCLUSIONS -------- 1. Paced rhythm. 2. This was a technically difficult study with suboptimal views. 3. The left ventricular size is normal. 4. There is mild concentric left ventricular hypertrophy. 5. Overall left ventricular systolic function is normal with, an EF between 55 - 60 %. 6. The right ventricle is mildly enlarged. 7. Normal LA size by volume 22+/-6 ml/m2. 8. Electronic pacemaker lead seen in the right ventricular cavity. 9. RA appears enlarged. 10. There is moderate aortic valve sclerosis. 11. There is no evidence of aortic regurgitation. 12. There is moderate aortic stenosis present. 13. Peak/mean gradient across the Aortic Valve is 32.93mmHg / 24.16mmHg. 14. The mitral valve leaflets are mild to moderately thickened. 15. Mild mitral regurgitation is present. 16. The peak and mean MV gradients are 12.89mmHg 3.94mmHg as measured by doppler. 17. Mild mitral stenosis. 18. Mild tricuspid regurgitation present. 19. There is mild to moderate pulmonary hypertension. 20. The right ventricular systolic pressure, as measured by Doppler, is 55.87mmHg. 21. The pulmonic valve was not well visualized. 22. The aortic root size is normal. 23. The inferior vena cava is dilated with poor inspiratory collapse which is consistent with estimat ed right atrial pressure of 20 mmHg. 24. Echo free space indicative of a pericardial fat pad. 25. There is no pericardial effusion. 26. 4 ml of Lumason was utilized for enhancement of images. DIRECTOR PATIENT: Stanley Martines RDCS
[2018-05-16] MEDS: BUDESONIDE 1 MG/2 ML NEBU INHALATION SCH ×2 (08:43→19:33)
[2018-05-16] MEDS: IPRATROPIUM-ALBUTEROL 3 ML NEB INHALATION SCH ×3 (08:43→19:33)
[2018-05-16] MEDS: INSULIN ASPART (NovoLOG) 100 UNIT/ML VIAL SQ SCH ×4 (08:52→20:51)
[2018-05-16] MEDS: INSULIN DETEMIR (LEVEMIR) 100 UNIT/ML SYR SQ SCH ×2 (08:52→21:24)
[2018-05-16] MEDS: ARTIFICIAL TEARS-HYPROMELLOSE DROPS 15 ML BTL BOTH EYES SCH ×3 (08:53→21:25)
[2018-05-16] MEDS: TAMSULOSIN 0.4 MG CAP.ER.24H PO SCH (08:53)
[2018-05-16] MEDS: SERTRALINE 25 MG TAB PO SCH (08:53)
[2018-05-16] MEDS: SERTRALINE 100 MG TAB PO SCH (08:54)
--- NOTE | 2018-05-16 10:39 | P.PN ---
Subjective Progress Note Date: 05/16/18 05/16/2017: Patient seen and examined. Patient is on 3 L nasal cannula with O2 saturation 99%. The patient states he is feeling good today. He does have a coarse cough. He denies any chest pain or shortness of breath. Objective - Vital Signs Vital signs: Vital Signs Temp 98.0 F 05/16/18 07:00 Pulse 68 05/16/18 08:59 Resp 15 05/16/18 07:00 BP 129/80 05/16/18 07:00 Pulse Ox 96 05/16/18 08:46 Intake & Output 05/15/18 05/16/18 05/16/18 18:59 06:59 18:59 Intake Total 1250 1490 Balance 1250 1490 Intake: Intake, IV Titration 1250 1400 Amount Piperacillin-Tazobactam 3 200 100 .375 gm In Sodium Chloride 0.9% 100 ml @ 25 mls/hr IVPB Q8HR [facility] Rx# :[id number] Sodium Chloride 0.9% 1, 800 1300 000 ml @ 100 mls/hr IV . Q10H [facility] Rx#:[id number] Sodium Chloride 0.9% 500 250 ml 500 ml @ 999 mls/hr IV .Q31M [facility] Rx#:[id number] Oral 90 Other: Voiding Method Incontinent Diaper Diaper Incontinent Incontinent # Voids 1 1 - Exam General: Patient is alert, poor historian, no acute distress Cardiovascular: Regular rate and rhythm, S1/S2 Lungs: Coarse breath sounds bilaterally Abdomen: Soft nontender nondistended positive bowel sounds Extremities: No edema - Labs CBC & Chem 7: 05/15/18 00:50 05/15/18 00:50 Labs: Abnormal Lab Results - Last 24 Hours (Table) 05/15/18 05/15/18 05/15/18 Range/Units 12:40 17:08 21:21 PT (9.0-12.0) sec INR (<1.2) POC Glucose (mg/dL) 123 H 200 H 300 H (75-99) mg/dL 05/16/18 05/16/18 Range/Units 07:05 07:29 PT 22.3 H (9.0-12.0) sec INR 2.3 H (<1.2) POC Glucose (mg/dL) 131 H (75-99) mg/dL Microbiology - Last 24 Hours (Table) 05/15/18 01:08 Urine Culture - Final Urine,Voided 05/15/18 01:29 Blood Culture - Preliminary Blood No Growth after 24 hours 05/15/18 01:29 Blood Culture - Preliminary Blood No Growth after 24 hours Assessment and Plan Assessment: Acute hypoxic respiratory failure Community-acquired pneumonia, possible aspiration Influenza A Acute exacerbation of COPD Sepsis with hypotension, resolved with IV fluid resuscitation Moderate to severe Pulmonary hypertension with RVSP 55 mmHg, Dysphasia Atrial fibrillation with RVR, chronic persistent BPH Depression Coumadin coagulopathy History of complete heart block, s/p PPM DM2 Hypertension Dyslipidemia LEONCIO Diastolic CHF O2 to maintain saturation greater than or equal to 90%, patient currently 98% on 3 L nasal cannula Antibiotics: Zosyn Tamiflu Blood, urine, sputum cultures Echocardiogram pending Pulmicort and Damari's Singulair Outpatient follow up for PH and LEONCIO Add CPAP nightly Blood sugar control Aspiration precautions Cardiology recommendations Add chest physiotherapy
[2018-05-16] MEDS: methylPREDNISolone SOD SUCCI 40 MG/ML 1 ML VIAL IV SCH ×2 (10:54→20:51)
[2018-05-16] MEDS: OSELTAMIVIR 60 MG/10 ML ORAL SYRINGE PO SCH ×2 (11:53→21:24)
--- NOTE | 2018-05-16 11:53 | P.PN ---
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 He follows with Dr. Gilmore in the office. Patient was seen and examined sitting up in bed receiving a breathing treatment. He is much more alert and conversational today. He denies symptoms of chest discomfort. He continues to feel short of breath, coughing frequently. Blood pressure 129/80 heart rate 67 afebrile maintaining oxygen saturation on nasal cannula. Laboratory data reviewed, INR 2.3 and NTproBNP 860. Echocardiogram obtained preserved left ventricular systolic function with ejection fraction 55-60%, moderate aortic valve sclerosis, moderate aortic stenosis with a mean gradient of 24 mmHg, mild mitral regurgitation, mild mitral stenosis, peak gradient across the mitral valve is 3 mmHg, mild tricuspid regurgitation and moderate pulmonary hypertension with RVSP 55 mmHg. Nursing staff is having trouble keep an IV in place. Awaiting anesthesia. GENERAL: This is a 82-year-old male in no apparent distress at the time of my examination. HEENT: Head is atraumatic, normocephalic. Pupils are equal, round. Sclerae anicteric. Conjunctivae are clear. Mucous membranes of the mouth are moist. Neck is supple. There is no jugular venous distention. No carotid bruit is heard. LUNGS: Bibasilar rales and coarse rhonchi throughout. No wheezes. No chest wall tenderness is noted on palpation or with deep breathing. HEART: Regular rate and rhythm with systolic ejection murmur at the base, no rubs or gallops. S1 and S2 heard. EXTREMITIES: Trace bilateral lower extremity edema and erythma. No calf tenderness noted. ASSESSMENT Chronic persistent atrial fibrillation on long-term anticoagulation with coumadin Supratherapeutic INR Acute aspiration pneumonia Influenza A Febrile illness Leukocytosis Altered mental status History of complete heart block status post permanent pacemaker implantation Diabetes mellitus Hypertension Dyslipidemia Obstructive sleep apnea Chronic diastolic heart failure Pulmonary hypertension Valvular heart disease. PLAN Initiate Eliquis to begin tomorrow morning at 5 mg BID and lasix 20 mg BID PO. Ongoing medical management. Nurse Practitioner note has been reviewed, I agree with a documented findings and plan of care. Patient was seen and examined. Objective - Vital Signs Vital signs: Vital Signs Temp 98.0 F 05/16/18 07:00 Pulse 68 05/16/18 08:59 Resp 15 05/16/18 07:00 BP 129/80 05/16/18 07:00 Pulse Ox 96 05/16/18 08:46 Intake & Output 05/15/18 05/16/18 05/16/18 18:59 06:59 18:59 Intake Total 1250 1490 Balance 1250 1490 Intake: Intake, IV Titration 1250 1400 Amount Piperacillin-Tazobactam 3 200 100 .375 gm In Sodium Chloride 0.9% 100 ml @ 25 mls/hr IVPB Q8HR [facility] Rx# :[id number] Sodium Chloride 0.9% 1, 800 1300 000 ml @ 100 mls/hr IV . Q10H [facility] Rx#:[id number] Sodium Chloride 0.9% 500 250 ml 500 ml @ 999 mls/hr IV .Q31M [facility] Rx#:[id number] Oral 90 Other: Voiding Method Incontinent Diaper Diaper Incontinent Incontinent # Voids 1 1 - Labs CBC & Chem 7: 05/15/18 00:50 05/15/18 00:50 Labs: Abnormal Lab Results - Last 24 Hours (Table) 05/15/18 05/15/18 05/15/18 Range/Units 12:40 17:08 21:21 PT (9.0-12.0) sec INR (<1.2) POC Glucose (mg/dL) 123 H 200 H 300 H (75-99) mg/dL 05/16/18 05/16/18 Range/Units 07:05 07:29 PT 22.3 H (9.0-12.0) sec INR 2.3 H (<1.2) POC Glucose (mg/dL) 131 H (75-99) mg/dL Microbiology - Last 24 Hours (Table) 05/15/18 01:08 Urine Culture - Final Urine,Voided 05/15/18 01:29 Blood Culture - Preliminary Blood No Growth after 24 hours 05/15/18 01:29 Blood Culture - Preliminary Blood No Growth after 24 hours
[2018-05-16 12:08] LABS: Glucose,Whole Blood 148 mg/dL (75-99)
--- NOTE | 2018-05-16 14:21 | P.PN ---
Subjective Progress Note Date: 05/16/18 82-year-old male one of Dr. Jenaro Stanley's patient who has history of mild obesity history of dementia congestive heart failure hypertension hyperlipidemia and vascular disease who was transferred from [facility] because of aspiration pneumonia sepsis and A. fib with RVR with significant hypotension arrived to the emergency room found to be in A. fib with pulse rate running in the 70s and 80s patient blood pressure was significantly bit low had to hold some of his blood pressure medicine. Patient was already on gram- negative coverage originally admitted to the floor shortly after blood pressure become very low with elevated lactic acid despite using 1 L of IV fluid than 500 bolus continue to work on blood pressure in the 70s. Patient was seen by the 18 and stabilized slight bed continue IV hydration will consult pulmonary and cardiology for the A. fib at this point awaiting for the final culture. 05/16: Modified barium swallow was done yesterday by speech therapy with r ecommendations for nectar thick liquids and pured diet. Patient currently has no IV access and midline will be ordered. He has been hypotensive with systolic of 84. Patient continues to have cough with sputum production. Coumadin has been changed to eliquis by cardiology. INR this morning is 2.3. Blood sugars have been running anywhere between 131 and 300. Patient has been afebrile, heart rate in the 60s and 70s, pulse ox 96% on 3 L. Repeat blood pressure 129/80. Patient is in isolation for influenza and continued on Tamiflu. She is followed by pulmonary medicine and cardiology. Review of Systems CONSTITUTIONAL: Mildly obese laying in bed with head 45 EYES: No icterus sclerae, no conjunctivitis. EARS, NOSE, MOUTH, THROAT, and FACE: No sore throat, lymphadenopathy, carotid bruits or deformity. RESPIRATORY: Significant shortness of breath cough wheezes. CARDIOVASCULAR: Positive shortness of breath PND orthopnea and edema with mild palpitation and A. fib. GASTROINTESTINAL: Mild abdominal pain with nausea no vomiting or diarrhea. GENITOURINARY: Negative for Hematuria or UTI, no kidney stones. INTEGUMENT/BREAST: Negative for any muscular injury with mild osteoarthritis.. HEMATOLOGIC/LYMPHATIC: Negative for bleed or purpura. MUSCULOSKELTAL: Negative for Myalgia or arthralgia. NEURLOGICAL: History of dementia with the mild altered mental status. BEHAVIORAL/PSYCH: Negative. ENDOCRINE: Negative. Objective - Vital Signs Vital signs: Vital Signs Temp 98.0 F 05/16/18 07:00 Pulse 77 05/16/18 13:09 Resp 15 05/16/18 07:00 BP 129/80 05/16/18 07:00 Pulse Ox 96 05/16/18 08:46 Intake & Output 05/15/18 05/16/18 05/16/18 18:59 06:59 18:59 Intake Total 1250 1490 Balance 1250 1490 Intake: Intake, IV Titration 1250 1400 Amount Piperacillin-Tazobactam 3 200 100 .375 gm In Sodium Chloride 0.9% 100 ml @ 25 mls/hr IVPB Q8HR [facility] Rx# :[id number] Sodium Chloride 0.9% 1, 800 1300 000 ml @ 100 mls/hr IV . Q10H [facility] Rx#:[id number] Sodium Chloride 0.9% 500 250 ml 500 ml @ 999 mls/hr IV .Q31M [facility] Rx#:[id number] Oral 90 Other: Voiding Method Incontinent Diaper Diaper Incontinent Incontinent # Voids 1 1 - Exam General Appearance: Mildly obese elderly laying in bed in no respiratory distress. Neck HEENT: Supple, no lymphadenopathy, no thyroid enlargement, no carotid bruits. Lungs: Decreased breath some relative final hyposmotic crackles in the bases specially in the right side. Chest Wall: Decrease expansion with deep inspiration no tenderness and no deformity was found on exam, no costochondral pain or discomfort. Heart: Irregular rate and rhythm, S1, S2 normal, no murmur, rub or gallop. Positive JVD Back: Symmetric, no curvature, ROM normal, no CVA tenderness. Abdomen: Slightly distended with no tenderness., bowel sounds active all four quadrants, no masses, no organomegaly. Extremities: Extremities normal, atraumatic, no cyanosis or edema. Pulses: 2+ and symmetric. Skin: Skin color, texture, tugor normal, no rashes or lesions. Neurologic: Alert oriented with slight confusion cranial nerves II through XII intact, no motor deficit, no abnormal balance or gait. - Labs CBC & Chem 7: 05/15/18 00:50 05/15/18 00:50 Labs: Abnormal Lab Results - Last 24 Hours (Table) 05/15/18 05/15/18 05/16/18 Range/Units 17:08 21:21 07:05 PT (9.0-12.0) sec INR (<1.2) POC Glucose (mg/dL) 200 H 300 H 131 H (75-99) mg/dL 05/16/18 05/16/18 Range/Units 07:29 11:49 PT 22.3 H (9.0-12.0) sec INR 2.3 H (<1.2) POC Glucose (mg/dL) 148 H (75-99) mg/dL Microbiology - Last 24 Hours (Table) 05/15/18 01:08 Urine Culture - Final Urine,Voided 05/15/18 01:29 Blood Culture - Preliminary Blood No Growth after 24 hours 05/15/18 01:29 Blood Culture - Preliminary Blood No Growth after 24 hours Assessment and Plan Plan: 1 acute respiratory respiratory distress secondary to aspiration pneumonia, influenza, CHF and COPD. 2 aspiration pneumonia: Most likely gram-negative was start patient on Zosyn, DuoNeb treatments, Solu-Medrol 2 doses. 3 sepsis with improvement lactic acid continue hydration and fluid resuscitation for now. 4 influenza A patient will continue be in isolation start Tamiflu continue O2 and updraft treatment. 5 COPD exacerbation: Continue patient on DuoNeb and Pulmicort. Solu-Medrol 2 doses. 6 chronic atrial fibrillation. Eliquis to be started tomorrow. Discontinue Coumadin. 7 worsening memory loss: Patient apparently doing well on Seroquel had for now. 8 BPH: Remain on Flomax with no urinary retention. 9 . Recurrent depression: Still on Zoloft and Seroquel. 10 type 2 diabetes: Remain on Levemir and Humalog continue patient with Accu- Chek sliding scales as well. 11. Coagulopathy secondary to Coumadin and illness. 12 DVT prophylaxis: Remain on anticoagulation. Patient to start eliquis in the morning. 13 GI prophylaxis: Patient will be continue on Pepcid. 14 UTI ruled out. Final culture with genital naila. CODE STATUS: DO NOT RESUSCITATE. Discharge plan: Return to [facility] Impression and plan of care have been directed as dictated by the signing physician. Tash Lai nurse practitioner acting as scribe for signing physician.
[2018-05-16] MEDS: FUROSEMIDE 20 MG TAB PO SCH (15:35)
[2018-05-16 17:25] LABS: Glucose,Whole Blood 150 mg/dL (75-99)
[2018-05-16] MEDS ORDERED: WARFARIN 5 MG TAB PO ONE (18:00)
[2018-05-16 19:53] LABS: Glucose,Whole Blood 208 mg/dL (75-99)
[2018-05-16] MEDS ORDERED: WARFARIN SODIUM 6 MG PO SCH (21:00)
[2018-05-16] MEDS: MONTELUKAST 10 MG TAB PO SCH (21:25)
[2018-05-16] MEDS: LATANOPROST 0.005% OPHTH DROPS 2.5 ML BTL BOTH EYES SCH (21:25)
[2018-05-16] MEDS: ATORVASTATIN 40 MG TAB PO SCH (21:25)
[2018-05-17] MEDS: DIVALPROEX SPRINKLE 125 MG CAP.SPRINK PO SCH ×4 (00:02→22:24)
[2018-05-17] MEDS: FAMOTIDINE 20 MG TAB PO SCH ×2 (05:13→15:42)
[2018-05-17] MEDS: FUROSEMIDE 20 MG TAB PO SCH ×2 (05:15→15:42)
[2018-05-17 06:49] LABS: Glucose,Whole Blood 107 mg/dL (75-99)
[2018-05-17] MEDS: SERTRALINE 100 MG TAB PO SCH (07:29)
[2018-05-17] MEDS: APIXABAN 5 MG TAB PO SCH ×2 (07:29→21:12)
[2018-05-17] MEDS: TAMSULOSIN 0.4 MG CAP.ER.24H PO SCH (07:29)
[2018-05-17] MEDS: SERTRALINE 25 MG TAB PO SCH (07:29)
[2018-05-17] MEDS: INSULIN ASPART (NovoLOG) 100 UNIT/ML VIAL SQ SCH ×4 (07:29→21:11)
[2018-05-17] MEDS: OSELTAMIVIR 60 MG/10 ML ORAL SYRINGE PO SCH ×2 (07:34→22:20)
[2018-05-17 07:35] LABS: HCT 42.3 % (39.0-53.0); HGB 13.4 gm/dL (13.0-17.5); Hypochromasia Slight; MCH 30.6 pg (25.0-35.0); MCHC 31.7 g/dL (31.0-37.0); MCV 96.5 fL (80.0-100.0); Mean Platelet Volume 6.9; Platelet Count 127 k/uL (150-450); RBC 4.38 m/uL (4.30-5.90); RDW 14.9 % (11.5-15.5); WBC 5.8 k/uL (3.8-10.6)
[2018-05-17] MEDS: INSULIN DETEMIR (LEVEMIR) 100 UNIT/ML SYR SQ SCH ×2 (07:35→21:11)
[2018-05-17 07:36] LABS: INR 1.7 (<1.2); Prothrombin Time 16.8 sec (9.0-12.0)
[2018-05-17] MEDS: IPRATROPIUM-ALBUTEROL 3 ML NEB INHALATION SCH ×3 (07:46→19:30)
[2018-05-17] MEDS: BUDESONIDE 1 MG/2 ML NEBU INHALATION SCH ×2 (07:46→19:30)
[2018-05-17 07:51] LABS: Albumin 2.3 g/dL (3.5-5.0); Calcium 7.7 mg/dL (8.4-10.2); Potassium 4.5 mmol/L (3.5-5.1); Total Bilirubin 0.6 mg/dL (0.2-1.3); Total Protein 4.9 g/dL (6.3-8.2)
[2018-05-17] MEDS: PIPERACILLIN-TAZOBACTAM 3.375 GM in SODIUM CHLORIDE 0.9% 100 ML IVPB SCH ×3 (09:27→23:58)
[2018-05-17 11:05] LABS: Glucose,Whole Blood 185 mg/dL (75-99)
[2018-05-17] MEDS: ARTIFICIAL TEARS-HYPROMELLOSE DROPS 15 ML BTL BOTH EYES SCH ×3 (12:30→21:12)
[2018-05-17] MEDS: SODIUM CHLORIDE 0.9% 1,000 ML IV SCH ×2 (12:32→20:54)
--- NOTE | 2018-05-17 14:28 | P.PN ---
Subjective Progress Note Date: 05/17/18 82-year-old male one of Dr. Jenaro Stanley's patient who has history of mild obesity history of dementia congestive heart failure hypertension hyperlipidemia and vascular disease who was transferred from [facility] because of aspiration pneumonia sepsis and A. fib with RVR with significant hypotension arrived to the emergency room found to be in A. fib with pulse rate running in the 70s and 80s patient blood pressure was significantly bit low had to hold some of his blood pressure medicine. Patient was already on gram- negative coverage originally admitted to the floor shortly after blood pressure become very low with elevated lactic acid despite using 1 L of IV fluid than 500 bolus continue to work on blood pressure in the 70s. Patient was seen by the 18 and stabilized slight bed continue IV hydration will consult pulmonary and cardiology for the A. fib at this point awaiting for the final culture. 05/16: Modified barium swallow was done yesterday by speech therapy with r ecommendations for nectar thick liquids and pured diet. Patient currently has no IV access and midline will be ordered. He has been hypotensive with systolic of 84. Patient continues to have cough with sputum production. Coumadin has been changed to eliquis by cardiology. INR this morning is 2.3. Blood sugars have been running anywhere between 131 and 300. Patient has been afebrile, heart rate in the 60s and 70s, pulse ox 96% on 3 L. Repeat blood pressure 129/80. Patient is in isolation for influenza and continued on Tamiflu. He is followed by pulmonary medicine and cardiology. 05/17: Patient has been afebrile, heart rate in the 60s to 80, pulse ox 90% on 3 L nasal cannula, blood pressure 118/74. WBC 5.8, hemoglobin 13.4, platelet count 127. Sodium 142, potassium 4.5, chloride 112, CO2 27, BUN 25 and creatinine 0.96. Blood sugars are now running between 107 and 208. Blood culture showing no growth after 48 hours. Urine cultures been finalized with genital naila. Patient is continued on Tamiflu in droplet isolation. Patient is also on Zosyn for aspiration pneumonia. Breathing status is slowly improving. Anticipate he will be ready for discharge on Tuesday. Review of Systems CONSTITUTIONAL: Mildly obese laying in bed with head 45 no fever, no chills EYES: No icterus sclerae, no conjunctivitis. EARS, NOSE, MOUTH, THROAT, and FACE: No sore throat, lymphadenopathy, carotid bruits or deformity. RESPIRATORY: Significant shortness of breath cough wheezes. CARDIOVASCULAR: Positive shortness of breath PND orthopnea and edema with mild palpitation and A. fib. GASTROINTESTINAL: Mild abdominal pain with nausea no vomiting or diarrhea. GENITOURINARY: Negative for Hematuria or UTI, no kidney stones. INTEGUMENT/BREAST: Negative for any muscular injury with mild osteoarthritis.. HEMATOLOGIC/LYMPHATIC: Negative for bleed or purpura. MUSCULOSKELTAL: Negative for Myalgia or arthralgia. NEURLOGICAL: History of dementia with the mild altered mental status. BEHAVIORAL/PSYCH: Negative. ENDOCRINE: Negative. Objective - Vital Signs Vital signs: Vital Signs Temp 97.5 F L 05/17/18 07:22 Pulse 80 05/17/18 08:04 Resp 18 05/17/18 07:22 BP 118/74 05/17/18 07:22 Pulse Ox 98 05/17/18 07:22 Intake & Output 05/16/18 05/17/18 05/17/18 18:59 06:59 18:59 Intake Total 900 Output Total 250 Balance 650 Weight 101.5 kg 102 kg Intake: Intake, IV Titration 900 Amount Piperacillin-Tazobactam 3 100 .375 gm In Sodium Chloride 0.9% 100 ml @ 25 mls/hr IVPB Q8HR [facility] Rx# :[id number] Sodium Chloride 0.9% 1, 800 000 ml @ 100 mls/hr IV . Q10H [facility] Rx#:[id number] Output: Urine 250 Other: Voiding Method Diaper Urinal Incontinent Diaper # Voids 1 1 # Bowel Movements 1 0 - Exam General Appearance: Mildly obese elderly laying in bed in no respiratory distress. Neck HEENT: Supple, no lymphadenopathy, no thyroid enlargement, no carotid bruits. Lungs: Decreased breath some relative final hyposmotic crackles in the bases specially in the right side. Chest Wall: Decrease expansion with deep inspiration, coarse breath sounds bilaterally, no tenderness and no deformity was found on exam, no costochondral pain or discomfort. Heart: Irregular rate and rhythm, S1, S2 normal, no murmur, rub or gallop. Positive JVD Back: Symmetric, no curvature, ROM normal, no CVA tenderness. Abdomen: Slightly distended with no tenderness., bowel sounds active all four quadrants, no masses, no organomegaly. Extremities: Extremities normal, atraumatic, no cyanosis or edema. Pulses: 2+ and symmetric. Skin: Skin color, texture, tugor normal, no rashes or lesions. Neurologic: Alert oriented with slight confusion cranial nerves II through XII intact, no motor deficit, no abnormal balance or gait. - Labs CBC & Chem 7: 05/17/18 06:44 05/17/18 06:44 Labs: Abnormal Lab Results - Last 24 Hours (Table) 05/16/18 05/16/18 05/16/18 Range/Units 11:49 16:51 19:51 Plt Count (150-450) k/uL PT (9.0-12.0) sec INR (<1.2) Chloride (98-107) mmol/L BUN (9-20) mg/dL Glucose (74-99) mg/dL POC Glucose (mg/dL) 148 H 150 H 208 H (75-99) mg/dL Calcium (8.4-10.2) mg/dL Total Protein (6.3-8.2) g/dL Albumin (3.5-5.0) g/dL 05/17/18 05/17/18 05/17/18 Range/Units 06:44 06:44 06:44 Plt Count 127 L (150-450) k/uL PT 16.8 H (9.0-12.0) sec INR 1.7 H (<1.2) Chloride 112 H (98-107) mmol/L BUN 25 H (9-20) mg/dL Glucose 117 H (74-99) mg/dL POC Glucose (mg/dL) (75-99) mg/dL Calcium 7.7 L (8.4-10.2) mg/dL Total Protein 4.9 L (6.3-8.2) g/dL Albumin 2.3 L (3.5-5.0) g/dL 05/17/18 Range/Units 06:48 Plt Count (150-450) k/uL PT (9.0-12.0) sec INR (<1.2) Chloride (98-107) mmol/L BUN (9-20) mg/dL Glucose (74-99) mg/dL POC Glucose (mg/dL) 107 H (75-99) mg/dL Calcium (8.4-10.2) mg/dL Total Protein (6.3-8.2) g/dL Albumin (3.5-5.0) g/dL Microbiology - Last 24 Hours (Table) 05/15/18 01:29 Blood Culture - Preliminary Blood No Growth after 48 hours 05/15/18 01:29 Blood Culture - Preliminary Blood No Growth after 48 hours 05/15/18 01:08 Urine Culture - Final Urine,Voided Assessment and Plan Plan: 1 acute respiratory distress secondary to aspiration pneumonia, influenza, CHF and COPD. 2 aspiration pneumonia: Most likely gram-negative was start patient on Zosyn, DuoNeb treatments, Solu-Medrol 2 doses. 3 sepsis with improvement lactic acid continue hydration and fluid resuscitation for now. 4 influenza A patient will continue be in isolation start Tamiflu continue O2 and updraft treatment. 5 COPD exacerbation: Continue patient on DuoNeb and Pulmicort. Solu-Medrol 2 doses. 6 chronic atrial fibrillation. Eliquis to be started tomorrow. Discontinue Coumadin. 7 worsening memory loss: Patient apparently doing well on Seroquel had for now. 8 BPH: Remain on Flomax with no urinary retention. 9 . Recurrent depression: Still on Zoloft and Seroquel. 10 type 2 diabetes: Remain on Levemir and Humalog continue patient with Accu- Chek sliding scales as well. 11. Coagulopathy secondary to Coumadin and illness. 12 DVT prophylaxis: Remain on anticoagulation. Patient to start eliquis in the morning. 13 GI prophylaxis: Patient will be continue on Pepcid. 14 UTI ruled out. Final culture with genital naila. CODE STATUS: DO NOT RESUSCITATE. Discharge plan: Return to [facility] on Tuesday Impression and plan of care have been directed as dictated by the signing physician. Tash Lai nurse practitioner acting as scribe for signing physician.
--- NOTE | 2018-05-17 14:33 | P.PN ---
Subjective Progress Note Date: 05/17/18 05/17/2017: Patient seen and examined. Patient states he is doing well. He denies fevers and chills. The patient does continue to have coarse cough and coarse breath sounds. He is otherwise comfortable. Objective - Vital Signs Vital signs: Vital Signs Temp 97.5 F L 05/17/18 07:22 Pulse 76 05/17/18 12:00 Resp 18 05/17/18 07:22 BP 118/74 05/17/18 07:22 Pulse Ox 98 05/17/18 07:22 Intake & Output 05/16/18 05/17/18 05/17/18 18:59 06:59 18:59 Intake Total 900 Output Total 250 Balance 650 Weight 101.5 kg 102 kg Intake: Intake, IV Titration 900 Amount Piperacillin-Tazobactam 3 100 .375 gm In Sodium Chloride 0.9% 100 ml @ 25 mls/hr IVPB Q8HR [facility] Rx# :[id number] Sodium Chloride 0.9% 1, 800 000 ml @ 100 mls/hr IV . Q10H [facility] Rx#:[id number] Output: Urine 250 Other: Voiding Method Diaper Urinal Incontinent Diaper # Voids 1 1 1 # Bowel Movements 1 0 - Exam General: Patient is alert, poor historian, no acute distress Cardiovascular: Regular rate and rhythm, S1/S2 Lungs: Coarse breath sounds bilaterally Abdomen: Soft nontender nondistended positive bowel sounds Extremities: No edema - Labs CBC & Chem 7: 05/17/18 06:44 05/17/18 06:44 Labs: Abnormal Lab Results - Last 24 Hours (Table) 05/16/18 05/16/18 05/17/18 Range/Units 16:51 19:51 06:44 Plt Count (150-450) k/uL PT 16.8 H (9.0-12.0) sec INR 1.7 H (<1.2) Chloride (98-107) mmol/L BUN (9-20) mg/dL Glucose (74-99) mg/dL POC Glucose (mg/dL) 150 H 208 H (75-99) mg/dL Calcium (8.4-10.2) mg/dL Total Protein (6.3-8.2) g/dL Albumin (3.5-5.0) g/dL 05/17/18 05/17/18 05/17/18 Range/Units 06:44 06:44 06:48 Plt Count 127 L (150-450) k/uL PT (9.0-12.0) sec INR (<1.2) Chloride 112 H (98-107) mmol/L BUN 25 H (9-20) mg/dL Glucose 117 H (74-99) mg/dL POC Glucose (mg/dL) 107 H (75-99) mg/dL Calcium 7.7 L (8.4-10.2) mg/dL Total Protein 4.9 L (6.3-8.2) g/dL Albumin 2.3 L (3.5-5.0) g/dL 05/17/18 Range/Units 11:04 Plt Count (150-450) k/uL PT (9.0-12.0) sec INR (<1.2) Chloride (98-107) mmol/L BUN (9-20) mg/dL Glucose (74-99) mg/dL POC Glucose (mg/dL) 185 H (75-99) mg/dL Calcium (8.4-10.2) mg/dL Total Protein (6.3-8.2) g/dL Albumin (3.5-5.0) g/dL Microbiology - Last 24 Hours (Table) 05/15/18 01:29 Blood Culture - Preliminary Blood No Growth after 48 hours 05/15/18 01:29 Blood Culture - Preliminary Blood No Growth after 48 hours Assessment and Plan Assessment: Acute hypoxic respiratory failure Community-acquired pneumonia, possible aspiration Influenza A Acute exacerbation of COPD Sepsis with hypotension, resolved with IV fluid resuscitation Moderate to severe Pulmonary hypertension with RVSP 55 mmHg, Dysphasia Atrial fibrillation with RVR, chronic persistent BPH Depression Coumadin coagulopathy History of complete heart block, s/p PPM DM2 Hypertension Dyslipidemia LEONCIO Diastolic CHF O2 to maintain saturation greater than or equal to 90%, patient currently 98% on 3 L nasal cannula Antibiotics: Zosyn Tamiflu Pulmicort and DuoNeb's Singulair Outpatient follow up for PH and LEONCIO CPAP nightly and with naps Blood sugar control Aspiration precautions Cardiology recommendations Continue chest physiotherapy
[2018-05-17 16:21] LABS: Glucose,Whole Blood 129 mg/dL (75-99)
[2018-05-17 19:53] LABS: Glucose,Whole Blood 132 mg/dL (75-99)
[2018-05-17] MEDS: ATORVASTATIN 40 MG TAB PO SCH (21:11)
[2018-05-17] MEDS: LATANOPROST 0.005% OPHTH DROPS 2.5 ML BTL BOTH EYES SCH (21:12)
[2018-05-17] MEDS: MONTELUKAST 10 MG TAB PO SCH (21:12)
[2018-05-17] MEDS: QUEtiapine 50 MG TAB PO SCH (21:12)
[2018-05-18] MEDS: FAMOTIDINE 20 MG TAB PO SCH ×2 (06:13→16:36)
[2018-05-18 06:50] LABS: Glucose,Whole Blood 50 mg/dL (75-99)
[2018-05-18 07:04] LABS: Glucose,Whole Blood 43 mg/dL (75-99)
[2018-05-18] MEDS ORDERED: DEXTROSE 50%-WATER 50 ML SYRINGE IVP ONE (07:05)
[2018-05-18] MEDS: BUDESONIDE 1 MG/2 ML NEBU INHALATION SCH ×2 (07:23→20:00)
[2018-05-18] MEDS: IPRATROPIUM-ALBUTEROL 3 ML NEB INHALATION SCH ×4 (07:23→23:55)
[2018-05-18 07:29] LABS: Glucose,Whole Blood 51 mg/dL (75-99)
[2018-05-18 07:59] LABS: Glucose,Whole Blood 153 mg/dL (75-99)
[2018-05-18 08:09] LABS: INR 1.5 (<1.2); Prothrombin Time 15.3 sec (9.0-12.0)
--- NOTE | 2018-05-18 08:58 | XR ---
EXAMINATION TYPE: XR chest 1V portable DATE OF EXAM: 05/18/2018 COMPARISON: 05/15/2018 HISTORY: Shortness of breath TECHNIQUE: Single frontal view of the chest is obtained. FINDINGS: Right-sided consolidation and pleural effusion noted. Subsegmental changes at the left brady g base stable. Heart is enlarged and there is cardiac device. Arthropathy of the shoulders. No pneumo thorax. Calcified granuloma right upper lobe. IMPRESSION: Bilateral infiltrate and pleural effusion correlate for pneumonia versus CHF.
[2018-05-18] MEDS: TAMSULOSIN 0.4 MG CAP.ER.24H PO SCH (09:37)
[2018-05-18] MEDS: APIXABAN 5 MG TAB PO SCH ×2 (09:38→20:18)
[2018-05-18] MEDS: FUROSEMIDE 20 MG TAB PO SCH (09:38)
[2018-05-18] MEDS: SERTRALINE 100 MG TAB PO SCH (09:38)
[2018-05-18] MEDS: DIVALPROEX SPRINKLE 125 MG CAP.SPRINK PO SCH ×3 (09:38→22:08)
[2018-05-18] MEDS: OSELTAMIVIR 60 MG/10 ML ORAL SYRINGE PO SCH ×2 (09:38→21:06)
[2018-05-18] MEDS: INSULIN ASPART (NovoLOG) 100 UNIT/ML VIAL SQ SCH ×4 (09:39→20:50)
[2018-05-18 09:42] LABS: Albumin 2.5 g/dL (3.5-5.0); Magnesium 1.7 mg/dL (1.6-2.3); Potassium 3.8 mmol/L (3.5-5.1); Total Protein 5.4 g/dL (6.3-8.2)
[2018-05-18] MEDS: PIPERACILLIN-TAZOBACTAM 3.375 GM in SODIUM CHLORIDE 0.9% 100 ML IVPB SCH ×3 (09:42→23:27)
[2018-05-18] MEDS: ARTIFICIAL TEARS-HYPROMELLOSE DROPS 15 ML BTL BOTH EYES SCH ×3 (09:42→20:20)
[2018-05-18] MEDS: SERTRALINE 25 MG TAB PO SCH (09:44)
[2018-05-18] MEDS: INSULIN DETEMIR (LEVEMIR) 100 UNIT/ML SYR SQ SCH (10:43)
[2018-05-18 11:51] LABS: Glucose,Whole Blood 176 mg/dL (75-99)
--- NOTE | 2018-05-18 12:02 | P.PN ---
Subjective Progress Note Date: 05/18/18 05/18/2017: Patient seen and examined. Patient currently on room air with O2 saturation 94%. The patient continues to have coarse breath sounds are coarse cough. The patient has been afebrile. His chest x-rays reviewed and shows bilateral infiltrates and pleural effusions, pneumonia versus CHF. Objective - Vital Signs Vital signs: Vital Signs Temp 98.3 F 05/18/18 07:51 Pulse 69 05/18/18 07:51 Resp 18 05/18/18 07:51 BP 134/77 05/18/18 07:51 Pulse Ox 96 05/18/18 07:51 Intake & Output 05/17/18 05/18/18 05/18/18 18:59 06:59 18:59 Intake Total 180 Output Total 0 Balance 180 Weight 101.5 kg Intake: Intake, IV Titration 180 Amount Piperacillin-Tazobactam 3 100 .375 gm In Sodium Chloride 0.9% 100 ml @ 25 mls/hr IVPB Q8HR [facility] Rx# :[id number] Sodium Chloride 0.9% 1, 80 000 ml @ 20 mls/hr IV . Q24H [facility] Rx#:[id number] Output: Urine/Stool Mix 0 Other: Voiding Method Diaper Incontinent # Voids 1 3 1 - Exam General: Patient is alert, poor historian, no acute distress Cardiovascular: Regular rate and rhythm, S1/S2 Lungs: Coarse breath sounds bilaterally Abdomen: Soft nontender nondistended positive bowel sounds Extremities: No edema - Labs CBC & Chem 7: 05/17/18 06:44 05/18/18 07:25 Labs: Abnormal Lab Results - Last 24 Hours (Table) 05/17/18 05/17/18 05/18/18 Range/Units 16:20 19:52 06:43 PT (9.0-12.0) sec INR (<1.2) Chloride (98-107) mmol/L BUN (9-20) mg/dL Glucose (74-99) mg/dL POC Glucose (mg/dL) 129 H 132 H 50 L (75-99) mg/dL Calcium (8.4-10.2) mg/dL Total Protein (6.3-8.2) g/dL Albumin (3.5-5.0) g/dL 05/18/18 05/18/18 05/18/18 Range/Units 06:51 07:02 07:25 PT 15.3 H (9.0-12.0) sec INR 1.5 H (<1.2) Chloride 110 H (98-107) mmol/L BUN 22 H (9-20) mg/dL Glucose 40 L* (74-99) mg/dL POC Glucose (mg/dL) 43 L (75-99) mg/dL Calcium 8.0 L (8.4-10.2) mg/dL Total Protein 5.4 L (6.3-8.2) g/dL Albumin 2.5 L (3.5-5.0) g/dL 05/18/18 05/18/18 05/18/18 Range/Units 07:26 07:55 11:49 PT (9.0-12.0) sec INR (<1.2) Chloride (98-107) mmol/L BUN (9-20) mg/dL Glucose (74-99) mg/dL POC Glucose (mg/dL) 51 L 153 H 176 H (75-99) mg/dL Calcium (8.4-10.2) mg/dL Total Protein (6.3-8.2) g/dL Albumin (3.5-5.0) g/dL Microbiology - Last 24 Hours (Table) 05/15/18 01:29 Blood Culture - Preliminary Blood No Growth after 72 hours 05/15/18 01:29 Blood Culture - Preliminary Blood No Growth after 72 hours Assessment and Plan Assessment: Acute hypoxic respiratory failure Community-acquired pneumonia, possible aspiration Influenza A Acute exacerbation of COPD Sepsis with hypotension, resolved with IV fluid resuscitation Moderate to severe Pulmonary hypertension with RVSP 55 mmHg, Dysphasia Atrial fibrillation with RVR, chronic persistent BPH Depression Coumadin coagulopathy History of complete heart block, s/p PPM DM2 Hypertension Dyslipidemia LEONCIO Diastolic CHF O2 to maintain saturation greater than or equal to 90%, patient currently 98% on 3 L nasal cannula Antibiotics: Zosyn Tamiflu Pulmicort and DuoNeb's Add Perforomist, Mucinex, Singulair Outpatient follow up for PH and LEONCIO CPAP nightly and with naps Blood sugar control Aspiration precautions Cardiology recommendations Continue chest physiotherapy Increase Lasix to TID for now Consult DEV MANAGER
--- NOTE | 2018-05-18 12:58 | P.PN ---
Subjective Progress Note Date: 05/18/18 82-year-old male one of Dr. Jenaro Stanley's patient who has history of mild obesity history of dementia congestive heart failure hypertension hyperlipidemia and vascular disease who was transferred from [facility] because of aspiration pneumonia sepsis and A. fib with RVR with significant hypotension arrived to the emergency room found to be in A. fib with pulse rate running in the 70s and 80s patient blood pressure was significantly bit low had to hold some of his blood pressure medicine. Patient was already on gram- negative coverage originally admitted to the floor shortly after blood pressure become very low with elevated lactic acid despite using 1 L of IV fluid than 500 bolus continue to work on blood pressure in the 70s. Patient was seen by the 18 and stabilized slight bed continue IV hydration will consult pulmonary and cardiology for the A. fib at this point awaiting for the final culture. 05/16: Modified barium swallow was done yesterday by speech therapy with r ecommendations for nectar thick liquids and pured diet. Patient currently has no IV access and midline will be ordered. He has been hypotensive with systolic of 84. Patient continues to have cough with sputum production. Coumadin has been changed to eliquis by cardiology. INR this morning is 2.3. Blood sugars have been running anywhere between 131 and 300. Patient has been afebrile, heart rate in the 60s and 70s, pulse ox 96% on 3 L. Repeat blood pressure 129/80. Patient is in isolation for influenza and continued on Tamiflu. He is followed by pulmonary medicine and cardiology. 05/17: Patient has been afebrile, heart rate in the 60s to 80, pulse ox 90% on 3 L nasal cannula, blood pressure 118/74. WBC 5.8, hemoglobin 13.4, platelet count 127. Sodium 142, potassium 4.5, chloride 112, CO2 27, BUN 25 and creatinine 0.96. Blood sugars are now running between 107 and 208. Blood culture showing no growth after 48 hours. Urine cultures been finalized with genital naila. Patient is continued on Tamiflu in droplet isolation. Patient is also on Zosyn for aspiration pneumonia. Breathing status is slowly improving. Anticipate he will be ready for discharge on Tuesday. 05/18: Patient is resting in bed with head up at 45 angle appears to be in no acute distress. No respiratory distress is noted. Patient continues to have a coarse congested cough. He has been afebrile, heart rate in the 60s to 80s, blood pressure 134/77, pulse ox 96% on 3 L nasal cannula. The patient did have a run of 7 beats of PVCs. This morning his blood sugar was down to 43 and he received oral food as well as IV dextrose. Insulins will be further decreased. Plan to continue current treatment plan and possible discharge tomorrow. Review of Systems CONSTITUTIONAL: no fever, no chills EYES: No icterus sclerae, no conjunctivitis. EARS, NOSE, MOUTH, THROAT, and FACE: No sore throat, lymphadenopathy, carotid bruits or deformity. RESPIRATORY: Significant shortness of breath cough wheezes. CARDIOVASCULAR: Denies shortness of breath PND orthopnea and edema with mild palpitation and A. fib. GASTROINTESTINAL: Mild abdominal pain with nausea no vomiting or diarrhea. GENITOURINARY: Negative for Hematuria or UTI, no kidney stones. INTEGUMENT/BREAST: Negative for any muscular injury with mild osteoarthritis.. HEMATOLOGIC/LYMPHATIC: Negative for bleed or purpura. MUSCULOSKELTAL: Negative for Myalgia or arthralgia. NEURLOGICAL: History of dementia with the mild altered mental status. BEHAVIORAL/PSYCH: Negative. ENDOCRINE: Negative. Objective - Vital Signs Vital signs: Vital Signs Temp 98.3 F 05/18/18 07:51 Pulse 69 05/18/18 07:51 Resp 18 05/18/18 07:51 BP 134/77 05/18/18 07:51 Pulse Ox 96 05/18/18 07:51 Intake & Output 05/17/18 05/18/18 05/18/18 18:59 06:59 18:59 Intake Total 180 Output Total 0 Balance 180 Weight 101.5 kg Intake: Intake, IV Titration 180 Amount Piperacillin-Tazobactam 3 100 .375 gm In Sodium Chloride 0.9% 100 ml @ 25 mls/hr IVPB Q8HR [facility] Rx# :[id number] Sodium Chloride 0.9% 1, 80 000 ml @ 20 mls/hr IV . Q24H [facility] Rx#:[id number] Output: Urine/Stool Mix 0 Other: Voiding Method Diaper Incontinent # Voids 1 3 - Exam General Appearance: Mildly obese elderly laying in bed in no respiratory distress. Congested cough noted Neck HEENT: Supple, no lymphadenopathy, no thyroid enlargement, no carotid bruits. Lungs: Decreased breath some relative final hyposmotic crackles in the bases specially in the right side. Chest Wall: Decrease expansion with deep inspiration, coarse breath sounds bilaterally, no tenderness and no deformity was found on exam, no costochondral pain or discomfort. Heart: Irregular rate and rhythm, S1, S2 normal, no murmur, rub or gallop. Positive JVD Back: Symmetric, no curvature, ROM normal, no CVA tenderness. Abdomen: Slightly distended with no tenderness., bowel sounds active all four quadrants, no masses, no organomegaly. Extremities: Extremities normal, atraumatic, no cyanosis or edema. Pulses: 2+ and symmetric. Skin: Skin color, texture, tugor normal, no rashes or lesions. Neurologic: Alert oriented with slight confusion cranial nerves II through XII intact, no motor deficit, no abnormal balance or gait. - Labs CBC & Chem 7: 05/17/18 06:44 05/18/18 07:25 Labs: Abnormal Lab Results - Last 24 Hours (Table) 05/17/18 05/17/18 05/18/18 Range/Units 16:20 19:52 06:43 PT (9.0-12.0) sec INR (<1.2) Chloride (98-107) mmol/L BUN (9-20) mg/dL Glucose (74-99) mg/dL POC Glucose (mg/dL) 129 H 132 H 50 L (75-99) mg/dL Calcium (8.4-10.2) mg/dL Total Protein (6.3-8.2) g/dL Albumin (3.5-5.0) g/dL 05/18/18 05/18/18 05/18/18 Range/Units 06:51 07:02 07:25 PT 15.3 H (9.0-12.0) sec INR 1.5 H (<1.2) Chloride 110 H (98-107) mmol/L BUN 22 H (9-20) mg/dL Glucose 40 L* (74-99) mg/dL POC Glucose (mg/dL) 43 L (75-99) mg/dL Calcium 8.0 L (8.4-10.2) mg/dL Total Protein 5.4 L (6.3-8.2) g/dL Albumin 2.5 L (3.5-5.0) g/dL 05/18/18 05/18/18 Range/Units 07:26 07:55 PT (9.0-12.0) sec INR (<1.2) Chloride (98-107) mmol/L BUN (9-20) mg/dL Glucose (74-99) mg/dL POC Glucose (mg/dL) 51 L 153 H (75-99) mg/dL Calcium (8.4-10.2) mg/dL Total Protein (6.3-8.2) g/dL Albumin (3.5-5.0) g/dL Microbiology - Last 24 Hours (Table) 05/15/18 01:29 Blood Culture - Preliminary Blood No Growth after 72 hours 05/15/18 01:29 Blood Culture - Preliminary Blood No Growth after 72 hours Assessment and Plan Plan: 1 acute respiratory distress secondary to aspiration pneumonia, influenza, CHF and COPD. 2 aspiration pneumonia: Most likely gram-negative was start patient on Zosyn, DuoNeb treatments, Solu-Medrol 2 doses-completed. 3 sepsis with improvement lactic acid continue hydration and fluid resuscitation for now. 4 influenza A patient will continue be in isolation start Tamiflu continue O2 and updraft treatment. 5 COPD exacerbation: Continue patient on DuoNeb and Pulmicort. Solu-Medrol 2 doses. 6 chronic atrial fibrillation. Eliquis to be started tomorrow. Discontinue Coumadin. 7 worsening memory loss: Patient apparently doing well on Seroquel had for now. 8 BPH: Remain on Flomax with no urinary retention. 9 . Recurrent depression: Still on Zoloft and Seroquel. 10 type 2 diabetes: Remain on Levemir and Humalog continue patient with Accu- Chek sliding scales as well. 11. Coagulopathy secondary to Coumadin and illness. 12 DVT prophylaxis: Remain on anticoagulation. Patient to start eliquis in the morning. 13 GI prophylaxis: Patient will be continue on Pepcid. 14 UTI ruled out. Final culture with genital naila. CODE STATUS: DO NOT RESUSCITATE. Discharge plan: Return to [facility] on Tuesday Impression and plan of care have been directed as dictated by the signing physician. Tash Lai nurse practitioner acting as scribe for signing physician.
[2018-05-18 13:32] LABS: Glucose,Whole Blood 176 mg/dL (75-99)
[2018-05-18] MEDS ORDERED: FUROSEMIDE 10 MG/ML 4 ML VIAL IV STA (13:44)
--- NOTE | 2018-05-18 14:29 | XR ---
EXAMINATION TYPE: XR chest 1V portable DATE OF EXAM: 05/18/2018 COMPARISON: NONE HISTORY: Respiratory distress. FINDINGS: There are bilateral pleural effusions with cardiomegaly and bibasilar infiltrate. There is a diffuse interstitial pattern. Granuloma right upper lobe. Cardiac device seen. IMPRESSION: 1. Bilateral infiltrate and pleural effusion correlate for CHF.
[2018-05-18] MEDS: guaiFENesin 600 MG TABLET.ER PO SCH ×2 (14:55→20:19)
[2018-05-18] MEDS ORDERED: FUROSEMIDE 20 MG TAB PO SCH (16:00)
[2018-05-18 16:01] LABS: Anion Gap 6 mmol/L; Blood Urea Nitrogen 21 mg/dL (9-20); Calcium 8.1 mg/dL (8.4-10.2); Carbon Dioxide 23 mmol/L (22-30); Chloride 113 mmol/L (98-107); Glucose 171 mg/dL (74-99); Potassium 5.1 mmol/L (3.5-5.1); Sodium 142 mmol/L (137-145)
[2018-05-18 16:55] LABS: Glucose,Whole Blood 163 mg/dL (75-99)
[2018-05-18 19:14] LABS: Glucose,Whole Blood 193 mg/dL (75-99)
[2018-05-18 20:06] LABS: Glucose,Whole Blood 219 mg/dL (75-99)
[2018-05-18] MEDS: ATORVASTATIN 40 MG TAB PO SCH (20:18)
[2018-05-18] MEDS: MONTELUKAST 10 MG TAB PO SCH (20:19)
[2018-05-18] MEDS: LATANOPROST 0.005% OPHTH DROPS 2.5 ML BTL BOTH EYES SCH (20:20)
[2018-05-18] MEDS: SODIUM CHLORIDE 0.9% 1,000 ML IV SCH (21:07)
[2018-05-18] MEDS: FUROSEMIDE 10 MG/ML 4 ML VIAL IV SCH (22:08)
[2018-05-18] MEDS: QUEtiapine 50 MG TAB PO SCH (22:08)
[2018-05-19] MEDS: IPRATROPIUM-ALBUTEROL 3 ML NEB INHALATION SCH ×6 (03:35→23:41)
[2018-05-19] MEDS: FUROSEMIDE 10 MG/ML 4 ML VIAL IV SCH ×3 (05:21→21:27)
[2018-05-19] MEDS: FAMOTIDINE 20 MG TAB PO SCH ×2 (05:21→15:26)
[2018-05-19 07:00] LABS: Glucose,Whole Blood 104 mg/dL (75-99)
[2018-05-19] MEDS: guaiFENesin 600 MG TABLET.ER PO SCH ×2 (08:32→21:29)
[2018-05-19] MEDS: DIVALPROEX SPRINKLE 125 MG CAP.SPRINK PO SCH ×3 (08:32→23:29)
[2018-05-19] MEDS: QUEtiapine 50 MG TAB PO SCH (08:32)
[2018-05-19] MEDS: TAMSULOSIN 0.4 MG CAP.ER.24H PO SCH (08:32)
[2018-05-19] MEDS: OSELTAMIVIR 60 MG/10 ML ORAL SYRINGE PO SCH ×2 (08:32→21:28)
[2018-05-19] MEDS: INSULIN ASPART (NovoLOG) 100 UNIT/ML VIAL SQ SCH ×4 (08:32→21:27)
[2018-05-19] MEDS: APIXABAN 5 MG TAB PO SCH ×2 (08:32→21:29)
[2018-05-19] MEDS: SERTRALINE 100 MG TAB PO SCH (08:33)
[2018-05-19] MEDS: INSULIN DETEMIR (LEVEMIR) 100 UNIT/ML SYR SQ SCH (08:34)
[2018-05-19] MEDS: SERTRALINE 25 MG TAB PO SCH (08:35)
[2018-05-19] MEDS: BUDESONIDE 1 MG/2 ML NEBU INHALATION SCH ×2 (09:50→20:36)
[2018-05-19 11:31] LABS: Glucose,Whole Blood 151 mg/dL (75-99)
[2018-05-19] MEDS: PIPERACILLIN-TAZOBACTAM 3.375 GM in SODIUM CHLORIDE 0.9% 100 ML IVPB SCH ×3 (12:29→23:29)
[2018-05-19] MEDS: ARTIFICIAL TEARS-HYPROMELLOSE DROPS 15 ML BTL BOTH EYES SCH ×3 (12:29→21:28)
--- NOTE | 2018-05-19 14:57 | P.PN ---
Subjective Progress Note Date: 05/19/18 82-year-old male one of Dr. Jenaro Stanley's patient who has history of mild obesity history of dementia congestive heart failure hypertension hyperlipidemia and vascular disease who was transferred from [facility] because of aspiration pneumonia sepsis and A. fib with RVR with significant hypotension arrived to the emergency room found to be in A. fib with pulse rate running in the 70s and 80s patient blood pressure was significantly bit low had to hold some of his blood pressure medicine. Patient was already on gram- negative coverage originally admitted to the floor shortly after blood pressure become very low with elevated lactic acid despite using 1 L of IV fluid than 500 bolus continue to work on blood pressure in the 70s. Patient was seen by the 18 and stabilized slight bed continue IV hydration will consult pulmonary and cardiology for the A. fib at this point awaiting for the final culture. 05/16: Modified barium swallow was done yesterday by speech therapy with r ecommendations for nectar thick liquids and pured diet. Patient currently has no IV access and midline will be ordered. He has been hypotensive with systolic of 84. Patient continues to have cough with sputum production. Coumadin has been changed to eliquis by cardiology. INR this morning is 2.3. Blood sugars have been running anywhere between 131 and 300. Patient has been afebrile, heart rate in the 60s and 70s, pulse ox 96% on 3 L. Repeat blood pressure 129/80. Patient is in isolation for influenza and continued on Tamiflu. He is followed by pulmonary medicine and cardiology. 05/17: Patient has been afebrile, heart rate in the 60s to 80, pulse ox 90% on 3 L nasal cannula, blood pressure 118/74. WBC 5.8, hemoglobin 13.4, platelet count 127. Sodium 142, potassium 4.5, chloride 112, CO2 27, BUN 25 and creatinine 0.96. Blood sugars are now running between 107 and 208. Blood culture showing no growth after 48 hours. Urine cultures been finalized with genital naila. Patient is continued on Tamiflu in droplet isolation. Patient is also on Zosyn for aspiration pneumonia. Breathing status is slowly improving. Anticipate he will be ready for discharge on Tuesday. 05/18: Patient is resting in bed with head up at 45 angle appears to be in no acute distress. No respiratory distress is noted. Patient continues to have a coarse congested cough. He has been afebrile, heart rate in the 60s to 80s, blood pressure 134/77, pulse ox 96% on 3 L nasal cannula. The patient did have a run of 7 beats of PVCs. This morning his blood sugar was down to 43 and he received oral food as well as IV dextrose. Insulins will be further decreased. Plan to continue current treatment plan and possible discharge tomorrow. 05/19: A-Team was called last afternoon it due to change in mental status and drop in his pulse ox to 70%. He was given 1 dose of IV Lasix 40 mg IV push and continued on 40 every 8 hours. Patient is currently on BiPAP and pulse oxing 97% this morning. He has been transitioned to 4 L nasal cannula and pulse oxing 94%. He continues to sound congested. He does have a sitter at the bedside. He has been afebrile, heart rate in the 90s, blood pressure 112/71. Chest x-ray this morning reveals bilateral infiltrate and pleural effusions correlate for heart failure. Anticipate patient will be ready for discharge on Tuesday. Review of Systems CONSTITUTIONAL: no fever, no chills EYES: No icterus sclerae, no conjunctivitis. EARS, NOSE, MOUTH, THROAT, and FACE: No sore throat, lymphadenopathy, carotid bruits or deformity. RESPIRATORY: Significant shortness of breath cough wheezes. CARDIOVASCULAR: Denies shortness of breath PND orthopnea and edema with mild palpitation and A. fib. GASTROINTESTINAL: Mild abdominal pain with nausea no vomiting or diarrhea. GENITOURINARY: Negative for Hematuria or UTI, no kidney stones. INTEGUMENT/BREAST: Negative for any muscular injury with mild osteoarthritis.. HEMATOLOGIC/LYMPHATIC: Negative for bleed or purpura. MUSCULOSKELTAL: Negative for Myalgia or arthralgia. NEURLOGICAL: History of dementia with the mild altered mental status. Objective - Vital Signs Vital signs: Vital Signs Temp 97.8 F 05/19/18 00:58 Pulse 96 05/19/18 10:13 Resp 18 05/19/18 07:00 BP 112/71 05/19/18 07:00 Pulse Ox 100 05/19/18 07:00 Intake & Output 05/18/18 05/19/18 05/19/18 18:59 06:59 18:59 Intake Total 80 120 Output Total 1999 Balance -1920 -680 Weight 99.5 kg Intake: Intake, IV Titration 80 Amount Sodium Chloride 0.9% 1, 80 000 ml @ 20 mls/hr IV . Q24H [facility] Rx#:[id number] Oral 120 Output: Urine 1999 Other: Voiding Method Indwelling Catheter Indwelling Catheter Indwelling Catheter # Voids 1 # Bowel Movements 0 - Exam General Appearance: Mildly obese elderly laying in bed in no respiratory distress. Congested cough noted. Patient on bipap. Sitter at bedside. Neck HEENT: Supple, no lymphadenopathy, no thyroid enlargement, no carotid brui ts. Lungs: Decreased breath some relative final hyposmotic crackles in the bases specially in the right side. Chest Wall: Decrease expansion with deep inspiration, coarse breath sounds bilaterally, no tenderness and no deformity was found on exam, no costochondral pain or discomfort. Heart: Irregular rate and rhythm, S1, S2 normal, no murmur, rub or gallop. Positive JVD Back: Symmetric, no curvature, ROM normal, no CVA tenderness. Abdomen: Slightly distended with no tenderness., bowel sounds active all four quadrants, no masses, no organomegaly. Extremities: Extremities normal, atraumatic, no cyanosis or edema. Pulses: 2+ and symmetric. Skin: Skin color, texture, tugor normal, no rashes or lesions. Neurologic: Alert oriented with slight confusion cranial nerves II through XII intact, no motor deficit, no abnormal balance or gait. - Labs CBC & Chem 7: 05/17/18 06:44 05/18/18 15:28 Labs: Abnormal Lab Results - Last 24 Hours (Table) 05/18/18 05/18/18 05/18/18 Range/Units 11:49 13:31 15:28 Chloride 113 H (98-107) mmol/L BUN 21 H (9-20) mg/dL Glucose 171 H (74-99) mg/dL POC Glucose (mg/dL) 176 H 176 H (75-99) mg/dL Calcium 8.1 L (8.4-10.2) mg/dL 05/18/18 05/18/18 05/18/18 Range/Units 16:52 19:08 20:04 Chloride (98-107) mmol/L BUN (9-20) mg/dL Glucose (74-99) mg/dL POC Glucose (mg/dL) 163 H 193 H 219 H (75-99) mg/dL Calcium (8.4-10.2) mg/dL 05/19/18 Range/Units 06:58 Chloride (98-107) mmol/L BUN (9-20) mg/dL Glucose (74-99) mg/dL POC Glucose (mg/dL) 104 H (75-99) mg/dL Calcium (8.4-10.2) mg/dL Microbiology - Last 24 Hours (Table) 05/15/18 01:29 Blood Culture - Preliminary Blood No Growth after 96 hours 05/15/18 01:29 Blood Culture - Preliminary Blood No Growth after 96 hours Assessment and Plan Plan: 1 acute respiratory distress secondary to aspiration pneumonia, influenza, CHF and COPD. 2 aspiration pneumonia: Most likely gram-negative was start patient on Zosyn, DuoNeb treatments, Solu-Medrol 2 doses-completed. 3 sepsis with improvement lactic acid continue hydration and fluid resuscitation for now. 4 influenza A patient will continue be in isolation start Tamiflu continue O2 and updraft treatment. 5 COPD exacerbation: Continue patient on DuoNeb and Pulmicort. Solu-Medrol 2 doses. 6 acute hypoxic respiratory failure requiring BiPAP secondary to acute on corporate health consultant scout diastolic heart failure. 7 chronic atrial fibrillation. Eliquis to be started tomorrow. Discontinue Coumadin. 8 worsening memory loss: Patient apparently doing well on Seroquel had for now. 9. BPH: Remain on Flomax with no urinary retention. 10. Recurrent depression: Still on Zoloft and Seroquel. 11. type 2 diabetes: Remain on Levemir and Humalog continue patient with Accu- Chek sliding scales as well. 12. Coagulopathy secondary to Coumadin and illness. 13. DVT prophylaxis: Remain on anticoagulation. Patient to start eliquis in the morning. 14. GI prophylaxis: Patient will be continue on Pepcid. 15. UTI ruled out. Final culture with genital naila. CODE STATUS: DO NOT RESUSCITATE. Discharge plan: Return to [facility] on Tuesday Impression and plan of care have been directed as dictated by the signing physician. Tash Lai nurse practitioner acting as scribe for signing physician.
--- NOTE | 2018-05-19 16:36 | P.PN ---
Subjective Progress Note Date: 05/19/18 05/19/2017: Patient seen and examined. Patient is currently on 3 L nasal cannula. He did apparently have an episode of unresponsiveness yesterday. The patient is alert and oriented at this time. He states he is sad because he wants to go home. The patient's chest sounds very coarse. He has been afeb rile. Objective - Vital Signs Vital signs: Vital Signs Temp 98.4 F 05/19/18 15:00 Pulse 110 H 05/19/18 15:00 Resp 18 05/19/18 15:00 BP 112/71 05/19/18 15:00 Pulse Ox 99 05/19/18 15:00 Intake & Output 05/18/18 05/19/18 05/19/18 18:59 06:59 18:59 Intake Total 80 320 Output Total 2000 1300 Balance -1920 -980 Weight 99.5 kg Intake: Intake, IV Titration 80 100 Amount Piperacillin-Tazobactam 3 100 .375 gm In Sodium Chloride 0.9% 100 ml @ 25 mls/hr IVPB Q8HR [facility] Rx# :[id number] Sodium Chloride 0.9% 1, 80 000 ml @ 20 mls/hr IV . Q24H [facility] Rx#:[id number] Oral 220 Output: Urine 1999 1300 Other: Voiding Method Indwelling Catheter Indwelling Catheter Indwelling Catheter # Voids 1 # Bowel Movements 0 - Exam General: Patient is alert, poor historian, no acute distress Cardiovascular: Regular rate and rhythm, S1/S2 Lungs: Coarse breath sounds bilaterally Abdomen: Soft nontender nondistended positive bowel sounds Extremities: No edema - Labs CBC & Chem 7: 05/17/18 06:44 05/18/18 15:28 Labs: Abnormal Lab Results - Last 24 Hours (Table) 05/18/18 05/18/18 05/18/18 Range/Units 16:52 19:08 20:04 POC Glucose (mg/dL) 163 H 193 H 219 H (75-99) mg/dL 05/19/18 05/19/18 Range/Units 06:58 11:29 POC Glucose (mg/dL) 104 H 151 H (75-99) mg/dL Microbiology - Last 24 Hours (Table) 05/15/18 01:29 Blood Culture - Preliminary Blood No Growth after 96 hours 03/25/19 01:29 Blood Culture - Preliminary Blood No Growth after 96 hours Assessment and Plan Assessment: Acute hypoxic respiratory failure Community-acquired pneumonia, possible aspiration Influenza A Acute exacerbation of COPD Sepsis with hypotension, resolved with IV fluid resuscitation Moderate to severe Pulmonary hypertension with RVSP 55 mmHg, Dysphasia Atrial fibrillation with RVR, chronic persistent BPH Depression Coumadin coagulopathy History of complete heart block, s/p PPM DM2 Hypertension Dyslipidemia LEONCIO Diastolic CHF O2 to maintain saturation greater than or equal to 90%, patient currently 98% on 3 L nasal cannula Bipap nightly and PRN - suspect underlying LEONCIO/OHS Antibiotics: Zosyn Tamiflu Pulmicort and DuoNeb's Perforomist, Mucinex, Singulair Outpatient follow up for PH and LEONCIO Blood sugar control Aspiration precautions Cardiology recommendations Continue chest physiotherapy Continue diuresis Consult BALANCE ASSEMBLER, PT and OT
[2018-05-19 16:49] LABS: Glucose,Whole Blood 136 mg/dL (75-99)
[2018-05-19 20:26] LABS: Glucose,Whole Blood 190 mg/dL (75-99)
[2018-05-19] MEDS: LATANOPROST 0.005% OPHTH DROPS 2.5 ML BTL BOTH EYES SCH (21:28)
[2018-05-19] MEDS: ATORVASTATIN 40 MG TAB PO SCH (21:29)
[2018-05-19] MEDS: MONTELUKAST 10 MG TAB PO SCH (21:29)
[2018-05-19] MEDS: SODIUM CHLORIDE 0.9% 1,000 ML IV SCH (23:19)
--- NOTE | 2018-05-20 02:57 | P.PN ---
Subjective Progress Note Date: 05/20/18 05/20/2018: Patient seen and examined. Patient is currently on 4 L nasal cannula with O2 saturation 93%. Patient is not currently on BiPAP. Objective - Vital Signs Vital signs: Vital Signs Temp 98.1 F 05/20/18 01:16 Pulse 102 H 05/20/18 01:16 Resp 16 05/20/18 01:16 BP 122/85 05/20/18 01:16 Pulse Ox 94 L 05/20/18 01:16 Intake & Output 05/19/18 05/19/18 05/20/18 06:59 18:59 06:59 Intake Total 80 440 Output Total 2000 1300 2100 Balance -1920 -860 -2100 Weight 99.5 kg Intake: Intake, IV Titration 80 100 Amount Piperacillin-Tazobactam 3 100 .375 gm In Sodium Chloride 0.9% 100 ml @ 25 mls/hr IVPB Q8HR [facility] Rx# :[id number] Sodium Chloride 0.9% 1, 80 000 ml @ 20 mls/hr IV . Q24H [facility] Rx#:[id number] Oral 340 Output: Urine 1999 1300 2100 Uretheral (Loo) 1100 Other: Voiding Method Indwelling Catheter Indwelling Catheter Indwelling Catheter # Bowel Movements 0 - Exam General: Patient is alert, poor historian, no acute distress Cardiovascular: Regular rate and rhythm, S1/S2 Lungs: Coarse breath sounds bilaterally Abdomen: Soft nontender nondistended positive bowel sounds Extremities: No edema - Labs CBC & Chem 7: 05/17/18 06:44 05/18/18 15:28 Labs: Abnormal Lab Results - Last 24 Hours (Table) 05/19/18 05/19/18 05/19/18 Range/Units 06:58 11:29 16:47 POC Glucose (mg/dL) 104 H 151 H 136 H (75-99) mg/dL 05/19/18 Range/Units 20:24 POC Glucose (mg/dL) 190 H (75-99) mg/dL Microbiology - Last 24 Hours (Table) 05/15/18 01:29 Blood Culture - Preliminary Blood No Growth after 96 hours 05/15/18 01:29 Blood Culture - Preliminary Blood No Growth after 96 hours Assessment and Plan Assessment: Acute hypoxic respiratory failure Community-acquired pneumonia, possible aspiration Influenza A Acute exacerbation of COPD Sepsis with hypotension, resolved with IV fluid resuscitation Moderate to severe Pulmonary hypertension with RVSP 55 mmHg, Dysphasia Atrial fibrillation with RVR, chronic persistent BPH Depression Coumadin coagulopathy History of complete heart block, s/p PPM DM2 Hypertension Dyslipidemia LEONCIO Diastolic CHF O2 to maintain saturation greater than or equal to 90%, patient currently 98% on 3 L nasal cannula Bipap nightly and PRN - suspect underlying LEONCIO/OHS Antibiotics: Zosyn Tamiflu Pulmicort and DuoNeb's Perforomist, Mucinex, Singulair Outpatient follow up for PH and LEONCIO Blood sugar control Aspiration precautions Cardiology recommendations Continue chest physiotherapy Continue diuresis Consult DIRECTOR PERSONAL, PT and OT
[2018-05-20] MEDS: IPRATROPIUM-ALBUTEROL 3 ML NEB INHALATION SCH ×5 (03:50→20:49)
[2018-05-20] MEDS: FAMOTIDINE 20 MG TAB PO SCH ×2 (05:07→14:00)
[2018-05-20] MEDS: FUROSEMIDE 10 MG/ML 4 ML VIAL IV SCH ×3 (05:07→21:30)
[2018-05-20] MEDS: BUDESONIDE 1 MG/2 ML NEBU INHALATION SCH ×2 (07:08→20:49)
[2018-05-20 07:13] LABS: Glucose,Whole Blood 143 mg/dL (75-99)
[2018-05-20] MEDS: APIXABAN 5 MG TAB PO SCH ×2 (08:19→21:18)
[2018-05-20] MEDS: TAMSULOSIN 0.4 MG CAP.ER.24H PO SCH (08:19)
[2018-05-20] MEDS: guaiFENesin 600 MG TABLET.ER PO SCH ×2 (08:19→21:18)
[2018-05-20] MEDS: DIVALPROEX SPRINKLE 125 MG CAP.SPRINK PO SCH ×3 (08:19→21:18)
[2018-05-20] MEDS: ARTIFICIAL TEARS-HYPROMELLOSE DROPS 15 ML BTL BOTH EYES SCH ×3 (08:20→21:18)
[2018-05-20] MEDS: SERTRALINE 100 MG TAB PO SCH (08:20)
[2018-05-20] MEDS: SERTRALINE 25 MG TAB PO SCH (08:20)
[2018-05-20] MEDS: PIPERACILLIN-TAZOBACTAM 3.375 GM in SODIUM CHLORIDE 0.9% 100 ML IVPB SCH ×2 (08:21→16:19)
[2018-05-20] MEDS: INSULIN ASPART (NovoLOG) 100 UNIT/ML VIAL SQ SCH ×4 (08:21→21:18)
[2018-05-20] MEDS: INSULIN DETEMIR (LEVEMIR) 100 UNIT/ML SYR SQ SCH (08:22)
[2018-05-20 11:44] LABS: Glucose,Whole Blood 150 mg/dL (75-99)
[2018-05-20] MEDS: CLOTRIMAZOLE TROCHE 10 MG TROCHE MUCOUS MEM SCH ×3 (13:37→21:17)
--- NOTE | 2018-05-20 13:46 | P.PN ---
Subjective Progress Note Date: 05/20/18 82-year-old male one of Dr. Jenaro Stanley's patient who has history of mild obesity history of dementia congestive heart failure hypertension hyperlipidemia and vascular disease who was transferred from [facility] because of aspiration pneumonia sepsis and A. fib with RVR with significant hypotension arrived to the emergency room found to be in A. fib with pulse rate running in the 70s and 80s patient blood pressure was significantly bit low had to hold some of his blood pressure medicine. Patient was already on gram- negative coverage originally admitted to the floor shortly after blood pressure become very low with elevated lactic acid despite using 1 L of IV fluid than 500 bolus continue to work on blood pressure in the 70s. Patient was seen by the 18 and stabilized slight bed continue IV hydration will consult pulmonary and cardiology for the A. fib at this point awaiting for the final culture. 05/16: Modified barium swallow was done yesterday by speech therapy with r ecommendations for nectar thick liquids and pured diet. Patient currently has no IV access and midline will be ordered. He has been hypotensive with systolic of 84. Patient continues to have cough with sputum production. Coumadin has been changed to eliquis by cardiology. INR this morning is 2.3. Blood sugars have been running anywhere between 131 and 300. Patient has been afebrile, heart rate in the 60s and 70s, pulse ox 96% on 3 L. Repeat blood pressure 129/80. Patient is in isolation for influenza and continued on Tamiflu. He is followed by pulmonary medicine and cardiology. 05/17: Patient has been afebrile, heart rate in the 60s to 80, pulse ox 90% on 3 L nasal cannula, blood pressure 118/74. WBC 5.8, hemoglobin 13.4, platelet count 127. Sodium 142, potassium 4.5, chloride 112, CO2 27, BUN 25 and creatinine 0.96. Blood sugars are now running between 107 and 208. Blood culture showing no growth after 48 hours. Urine cultures been finalized with genital naila. Patient is continued on Tamiflu in droplet isolation. Patient is also on Zosyn for aspiration pneumonia. Breathing status is slowly improving. Anticipate he will be ready for discharge on Tuesday. 05/18: Patient is resting in bed with head up at 45 angle appears to be in no acute distress. No respiratory distress is noted. Patient continues to have a coarse congested cough. He has been afebrile, heart rate in the 60s to 80s, blood pressure 134/77, pulse ox 96% on 3 L nasal cannula. The patient did have a run of 7 beats of PVCs. This morning his blood sugar was down to 43 and he received oral food as well as IV dextrose. Insulins will be further decreased. Plan to continue current treatment plan and possible discharge tomorrow. 05/19: A-Team was called last afternoon it due to change in mental status and drop in his pulse ox to 70%. He was given 1 dose of IV Lasix 40 mg IV push and continued on 40 every 8 hours. Patient is currently on BiPAP and pulse oxing 97% this morning. He has been transitioned to 4 L nasal cannula and pulse oxing 94%. He continues to sound congested. He does have a sitter at the bedside. He has been afebrile, heart rate in the 90s, blood pressure 112/71. Chest x-ray this morning reveals bilateral infiltrate and pleural effusions correlate for heart failure. Anticipate patient will be ready for discharge on Tuesday. 05/20: Patient has been afebrile, heart rate in the 80s, blood pressure 127/83, pulse ox 97% on 4 L nasal cannula which is improving. Patient does have slight bleeding at the nares and humidified oxygen to be added. Patient has been diuresing well and is on Lasix 40 mg IV every 8 hours. Patient will be started on clotrimazole Philip for thrush. Patient denies any complaints and states he feels well today. Nurse states the patient has had very little appetite this morning. We are anticipating that he will be ready for discharge on Tuesday back to [facility]. Review of Systems CONSTITUTIONAL: no fever, no chills EYES: No icterus sclerae, no conjunctivitis. EARS, NOSE, MOUTH, THROAT, and FACE: No sore throat, lymphadenopathy, carotid bruits or deformity. RESPIRATORY: Significant shortness of breath cough wheezes. CARDIOVASCULAR: Denies shortness of breath PND orthopnea and edema with mild palpitation and A. fib. GASTROINTESTINAL: Denies abdominal pain with nausea no vomiting or diarrhea. GENITOURINARY: Negative for Hematuria or UTI, no kidney stones. INTEGUMENT/BREAST: Negative for any muscular injury with mild osteoarthritis.. HEMATOLOGIC/LYMPHATIC: Negative for bleed or purpura. MUSCULOSKELTAL: Negative for Myalgia or arthralgia. NEURLOGICAL: History of dementia with the mild altered mental status. Objective - Vital Signs Vital signs: Vital Signs Temp 98.0 F 05/20/18 06:54 Pulse 90 05/20/18 11:07 Resp 17 05/20/18 06:55 BP 127/83 05/20/18 06:54 Pulse Ox 96 05/20/18 11:29 Intake & Output 05/19/18 05/20/18 05/20/18 18:59 06:59 18:59 Intake Total 440 400 280 Output Total 1300 2900 1400 Balance -860 -2500 -1120 Weight 98 kg Intake: Intake, IV Titration 100 300 100 Amount Piperacillin-Tazobactam 3 100 100 100 .375 gm In Sodium Chloride 0.9% 100 ml @ 25 mls/hr IVPB Q8HR [facility] Rx# :[id number] Sodium Chloride 0.9% 1, 200 000 ml @ 20 mls/hr IV . Q24H [facility] Rx#:[id number] Oral 340 100 180 Output: Urine 1300 2900 1400 Uretheral (Loo) 1900 1400 Other: Voiding Method Indwelling Catheter Indwelling Catheter # Bowel Movements 0 - Exam General Appearance: Mildly obese elderly laying in bed in no respiratory distress. Congested cough noted. Patient on nasal cannula oxygen. Neck HEENT: Supple, no lymphadenopathy, no thyroid enlargement, no carotid bruits. Lungs: Decreased breath some relative final hyposmotic crackles in the bases specially in the right side. Chest Wall: Decrease expansion with deep inspiration, coarse breath sounds bilaterally, no tenderness and no deformity was found on exam, no costochondral pain or discomfort. Heart: Irregular rate and rhythm, S1, S2 normal, no murmur, rub or gallop. Positive JVD Back: Symmetric, no curvature, ROM normal, no CVA tenderness. Abdomen: Slightly distended with no tenderness., bowel sounds active all four quadrants, no masses, no organomegaly. Extremities: Extremities normal, atraumatic, no cyanosis or edema. Pulses: 2+ and symmetric. Skin: Skin color, texture, tugor normal, no rashes or lesions. Neurologic: Alert oriented with slight confusion cranial nerves II through XII intact, no motor deficit, no abnormal balance or gait. - Labs CBC & Chem 7: 05/17/18 06:44 05/18/18 15:28 Labs: Abnormal Lab Results - Last 24 Hours (Table) 05/19/18 05/19/18 05/20/18 Range/Units 16:47 20:24 07:12 POC Glucose (mg/dL) 136 H 190 H 143 H (75-99) mg/dL 05/20/18 Range/Units 11:42 POC Glucose (mg/dL) 150 H (75-99) mg/dL Microbiology - Last 24 Hours (Table) 05/15/18 01:29 Blood Culture - Preliminary Blood No Growth after 120 hours 05/15/18 01:29 Blood Culture - Preliminary Blood No Growth after 120 hours Assessment and Plan Plan: 1 acute respiratory distress secondary to aspiration pneumonia, influenza, CHF and COPD. 2 aspiration pneumonia: Most likely gram-negative was start patient on Zosyn, DuoNeb treatments, Solu-Medrol 2 doses-completed. 3 sepsis with improvement lactic acid continue hydration and fluid resuscitation for now. 4 influenza A patient will continue be in isolation start Tamiflu continue O2 a nd updraft treatment. 5 COPD exacerbation: Continue patient on DuoNeb and Pulmicort. Solu-Medrol 2 doses. 6 acute hypoxic respiratory failure requiring BiPAP secondary to acute on chronic diastolic heart failure. 7 chronic atrial fibrillation. Eliquis started. Discontinue Coumadin. Cardiology is following on an as-needed basis. 8 worsening memory loss: Patient apparently doing well on Seroquel had for now. 9. BPH: Remain on Flomax with no urinary retention. 10. Recurrent depression: Still on Zoloft and Seroquel. 11. type 2 diabetes: Remain on Levemir and Humalog continue patient with Accu- Chek sliding scales as well. 12. Coagulopathy secondary to Coumadin and illness. 13. DVT prophylaxis: Remain on anticoagulation. Patient to start eliquis in the morning. 14. GI prophylaxis: Patient will be continue on Pepcid. 15. UTI ruled out. Final culture with genital naila. CODE STATUS: DO NOT RESUSCITATE. Discharge plan: Return to [facility] on Tuesday Impression and plan of care have been directed as dictated by the signing physician. Tash Lai nurse practitioner acting as scribe for signing physician.
[2018-05-20 16:52] LABS: Glucose,Whole Blood 165 mg/dL (75-99)
[2018-05-20 20:08] LABS: Glucose,Whole Blood 170 mg/dL (75-99)
[2018-05-20] MEDS: SODIUM CHLORIDE 0.9% 1,000 ML IV SCH (21:10)
[2018-05-20] MEDS: ATORVASTATIN 40 MG TAB PO SCH (21:17)
[2018-05-20] MEDS: QUEtiapine 50 MG TAB PO SCH (21:18)
[2018-05-20] MEDS: MONTELUKAST 10 MG TAB PO SCH (21:18)
[2018-05-20] MEDS: LATANOPROST 0.005% OPHTH DROPS 2.5 ML BTL BOTH EYES SCH (21:19)
[2018-05-21] MEDS: CLOTRIMAZOLE TROCHE 10 MG TROCHE MUCOUS MEM SCH ×6 (00:08→22:03)
[2018-05-21] MEDS: PIPERACILLIN-TAZOBACTAM 3.375 GM in SODIUM CHLORIDE 0.9% 100 ML IVPB SCH ×3 (00:13→17:34)
[2018-05-21] MEDS: IPRATROPIUM-ALBUTEROL 3 ML NEB INHALATION SCH ×6 (00:38→20:33)
[2018-05-21] MEDS: FAMOTIDINE 20 MG TAB PO SCH ×3 (06:05→22:03)
[2018-05-21] MEDS: FUROSEMIDE 10 MG/ML 4 ML VIAL IV SCH ×3 (06:05→21:38)
[2018-05-21] MEDS: BUDESONIDE 1 MG/2 ML NEBU INHALATION SCH ×2 (07:01→20:33)
[2018-05-21 07:17] LABS: Glucose,Whole Blood 126 mg/dL (75-99)
[2018-05-21] MEDS: INSULIN ASPART (NovoLOG) 100 UNIT/ML VIAL SQ SCH ×4 (07:46→20:06)
[2018-05-21] MEDS: TAMSULOSIN 0.4 MG CAP.ER.24H PO SCH ×2 (08:11→09:40)
[2018-05-21] MEDS: guaiFENesin 600 MG TABLET.ER PO SCH ×3 (08:11→19:34)
[2018-05-21] MEDS: SERTRALINE 100 MG TAB PO SCH (08:11)
[2018-05-21] MEDS: DIVALPROEX SPRINKLE 125 MG CAP.SPRINK PO SCH ×3 (08:11→19:35)
[2018-05-21] MEDS: APIXABAN 5 MG TAB PO SCH (08:11)
[2018-05-21] MEDS: SERTRALINE 25 MG TAB PO SCH (08:12)
[2018-05-21 09:17] LABS: HCT 49.6 % (39.0-53.0); HGB 15.6 gm/dL (13.0-17.5); MCH 29.7 pg (25.0-35.0); MCHC 31.5 g/dL (31.0-37.0); MCV 94.2 fL (80.0-100.0); Mean Platelet Volume 6.6; Platelet Count 143 k/uL (150-450); RBC 5.27 m/uL (4.30-5.90); RDW 14.1 % (11.5-15.5); WBC 6.3 k/uL (3.8-10.6)
[2018-05-21 10:07] LABS: Calcium 8.5 mg/dL (8.4-10.2); Potassium 3.1 mmol/L (3.5-5.1); Total Bilirubin 1.4 mg/dL (0.2-1.3); Total Protein 6.2 g/dL (6.3-8.2)
[2018-05-21] MEDS: INSULIN DETEMIR (LEVEMIR) 100 UNIT/ML SYR SQ SCH (10:32)
[2018-05-21 11:42] LABS: Glucose,Whole Blood 221 mg/dL (75-99)
[2018-05-21] MEDS: ARTIFICIAL TEARS-HYPROMELLOSE DROPS 15 ML BTL BOTH EYES SCH ×3 (12:58→21:38)
--- NOTE | 2018-05-21 13:49 | P.PN ---
Subjective Progress Note Date: 05/21/18 82-year-old male one of Dr. Jenaro Stanley's patient who has history of mild obesity history of dementia congestive heart failure hypertension hyperlipidemia and vascular disease who was transferred from [facility] because of aspiration pneumonia sepsis and A. fib with RVR with significant hypotension arrived to the emergency room found to be in A. fib with pulse rate running in the 70s and 80s patient blood pressure was significantly bit low had to hold some of his blood pressure medicine. Patient was already on gram- negative coverage originally admitted to the floor shortly after blood pressure become very low with elevated lactic acid despite using 1 L of IV fluid than 500 bolus continue to work on blood pressure in the 70s. Patient was seen by the 18 and stabilized slight bed continue IV hydration will consult pulmonary and cardiology for the A. fib at this point awaiting for the final culture. 05/16: Modified barium swallow was done yesterday by speech therapy with r ecommendations for nectar thick liquids and pured diet. Patient currently has no IV access and midline will be ordered. He has been hypotensive with systolic of 84. Patient continues to have cough with sputum production. Coumadin has been changed to eliquis by cardiology. INR this morning is 2.3. Blood sugars have been running anywhere between 131 and 300. Patient has been afebrile, heart rate in the 60s and 70s, pulse ox 96% on 3 L. Repeat blood pressure 129/80. Patient is in isolation for influenza and continued on Tamiflu. He is followed by pulmonary medicine and cardiology. 05/17: Patient has been afebrile, heart rate in the 60s to 80, pulse ox 90% on 3 L nasal cannula, blood pressure 118/74. WBC 5.8, hemoglobin 13.4, platelet count 127. Sodium 142, potassium 4.5, chloride 112, CO2 27, BUN 25 and creatinine 0.96. Blood sugars are now running between 107 and 208. Blood culture showing no growth after 48 hours. Urine cultures been finalized with genital naila. Patient is continued on Tamiflu in droplet isolation. Patient is also on Zosyn for aspiration pneumonia. Breathing status is slowly improving. Anticipate he will be ready for discharge on Tuesday. 05/18: Patient is resting in bed with head up at 45 angle appears to be in no acute distress. No respiratory distress is noted. Patient continues to have a coarse congested cough. He has been afebrile, heart rate in the 60s to 80s, blood pressure 134/77, pulse ox 96% on 3 L nasal cannula. The patient did have a run of 7 beats of PVCs. This morning his blood sugar was down to 43 and he received oral food as well as IV dextrose. Insulins will be further decreased. Plan to continue current treatment plan and possible discharge tomorrow. 05/19: A-Team was called last afternoon it due to change in mental status and drop in his pulse ox to 70%. He was given 1 dose of IV Lasix 40 mg IV push and continued on 40 every 8 hours. Patient is currently on BiPAP and pulse oxing 97% this morning. He has been transitioned to 4 L nasal cannula and pulse oxing 94%. He continues to sound congested. He does have a sitter at the bedside. He has been afebrile, heart rate in the 90s, blood pressure 112/71. Chest x-ray this morning reveals bilateral infiltrate and pleural effusions correlate for heart failure. Anticipate patient will be ready for discharge on Tuesday. 05/20: Patient has been afebrile, heart rate in the 80s, blood pressure 127/83, pulse ox 97% on 4 L nasal cannula which is improving. Patient does have slight bleeding at the nares and humidified oxygen to be added. Patient has been diuresing well and is on Lasix 40 mg IV every 8 hours. Patient will be started on clotrimazole Philip for thrush. Patient denies any complaints and states he feels well today. Nurse states the patient has had very little appetite this morning. We are anticipating that he will be ready for discharge on Tuesday back to [facility]. 05/21: Patient started on Solu-Medrol 40 mg IV every 8 hours for wheezing. He is also on DuoNeb treatments scheduled and as needed as well as Pulmicort 1 mg twice daily. He remains on IV antibiotics with Zosyn. He denies any new complaints, he has been afebrile, heart rate in the 90s to 106, blood pressure 109/71, pulse ox 90% on 4 L. Sodium is 147, potassium 3.1, chloride 101, CO2 39, BUN 26 and creatinine 1.02. Blood sugars running between 139 and 170. Review of Systems CONSTITUTIONAL: no fever, no chills EYES: No icterus sclerae, no conjunctivitis. EARS, NOSE, MOUTH, THROAT, and FACE: No sore throat, lymphadenopathy, carotid bruits or deformity. RESPIRATORY: Significant shortness of breath cough wheezes. CARDIOVASCULAR: Denies shortness of breath PND orthopnea and edema no palpitations. GASTROINTESTINAL: Denies abdominal pain with nausea no vomiting or diarrhea. GENITOURINARY: Negative for Hematuria or UTI, no kidney stones. INTEGUMENT/BREAST: Negative for any muscular injury with mild osteoarthritis.. HEMATOLOGIC/LYMPHATIC: Negative for bleed or purpura. MUSCULOSKELTAL: Negative for Myalgia or arthralgia. NEURLOGICAL: History of dementia with the mild altered mental status. Objective - Vital Signs Vital signs: Vital Signs Temp 97.8 F 05/21/18 08:36 Pulse 92 05/21/18 10:56 Resp 20 05/21/18 07:12 BP 109/71 05/21/18 07:12 Pulse Ox 98 05/21/18 07:12 Intake & Output 05/20/18 05/21/18 05/21/18 18:59 06:59 18:59 Intake Total 340 300 120 Output Total 2300 700 Balance -1960 -400 120 Intake: Intake, IV Titration 100 300 Amount Piperacillin-Tazobactam 3 100 100 .375 gm In Sodium Chloride 0.9% 100 ml @ 25 mls/hr IVPB Q8HR [facility] Rx# :[id number] Sodium Chloride 0.9% 1, 200 000 ml @ 20 mls/hr IV . Q24H [facility] Rx#:[id number] Oral 240 120 Output: Urine 2300 700 Uretheral (Loo) 1400 Other: Voiding Method Indwelling Catheter Indwelling Catheter - Exam General Appearance: Mildly obese elderly laying in bed in no respiratory distress. Congested cough noted. Patient on nasal cannula oxygen. Neck HEENT: Supple, no lymphadenopathy, no thyroid enlargement, no carotid bruits. Lungs: Decreased breath some relative final hyposmotic crackles in the bases specially in the right side. Chest Wall: Decrease expansion with deep inspiration, coarse breath sounds bilaterally with expiratory wheeze, no tenderness and no deformity was found on exam, no costochondral pain or discomfort. Heart: Irregular rate and rhythm, S1, S2 normal, no murmur, rub or gallop. Positive JVD Back: Symmetric, no curvature, ROM normal, no CVA tenderness. Abdomen: Slightly distended with no tenderness., bowel sounds active all four quadrants, no masses, no organomegaly. Extremities: Extremities normal, atraumatic, no cyanosis or edema. Pulses: 2+ and symmetric. Skin: Skin color, texture, tugor normal, no rashes or lesions. Neurologic: Alert oriented with slight confusion cranial nerves II through XII intact, no motor deficit, no abnormal balance or gait. - Labs CBC & Chem 7: 05/21/18 08:08 05/21/18 08:08 Labs: Abnormal Lab Results - Last 24 Hours (Table) 05/20/18 05/20/18 05/21/18 Range/Units 16:51 19:57 07:11 Plt Count (150-450) k/uL Sodium (137-145) mmol/L Potassium (3.5-5.1) mmol/L Carbon Dioxide (22-30) mmol/L BUN (9-20) mg/dL Glucose (74-99) mg/dL POC Glucose (mg/dL) 165 H 170 H 126 H (75-99) mg/dL Total Bilirubin (0.2-1.3) mg/dL Total Protein (6.3-8.2) g/dL Albumin (3.5-5.0) g/dL 05/21/18 05/21/18 05/21/18 Range/Units 08:08 08:08 11:31 Plt Count 143 L (150-450) k/uL Sodium 147 H (137-145) mmol/L Potassium 3.1 L (3.5-5.1) mmol/L Carbon Dioxide 39 H (22-30) mmol/L BUN 26 H (9-20) mg/dL Glucose 139 H (74-99) mg/dL POC Glucose (mg/dL) 221 H (75-99) mg/dL Total Bilirubin 1.4 H (0.2-1.3) mg/dL Total Protein 6.2 L (6.3-8.2) g/dL Albumin 3.0 L (3.5-5.0) g/dL Microbiology - Last 24 Hours (Table) 05/15/18 01:29 Blood Culture - Final Blood No Growth after 144 hours 03/25/19 01:29 Blood Culture - Final Blood No Growth after 144 hours Assessment and Plan Plan: 1 acute respiratory distress secondary to aspiration pneumonia, influenza, CHF and COPD. 2 aspiration pneumonia: Most likely gram-negative was start patient on Zosyn, DuoNeb treatments, Solu-Medrol 40 mg every 8 hours added. 3 sepsis with improvement lactic acid continue hydration and fluid resuscitation for now. 4 influenza A patient will continue be in isolation start Tamiflu continue O2 and updraft treatment. 5 COPD exacerbation: Continue patient on DuoNeb and Pulmicort. Solu-Medrol 2 doses. 6 acute hypoxic respiratory failure requiring BiPAP secondary to acute on chronic diastolic heart failure. 7 chronic atrial fibrillation. Eliquis started. Discontinue Coumadin. Cardiology is following on an as-needed basis. 8 worsening memory loss: Patient apparently doing well on Seroquel had for now. 9. BPH: Remain on Flomax with no urinary retention. 10. Recurrent depression: Still on Zoloft and Seroquel. 11. type 2 diabetes: Remain on Levemir and Humalog continue patient with Accu- Chek sliding scales as well. 12. Coagulopathy secondary to Coumadin and illness. 13. DVT prophylaxis: Remain on anticoagulation. Patient to start eliquis in the morning. 14. GI prophylaxis: Patient will be continue on Pepcid. 15. UTI ruled out. Final culture with genital naila. CODE STATUS: DO NOT RESUSCITATE. Discharge plan: Return to [facility] on Tuesday Impression and plan of care have been directed as dictated by the signing physician. Tash Lai nurse practitioner acting as scribe for signing physician.
[2018-05-21 17:12] LABS: Glucose,Whole Blood 155 mg/dL (75-99)
[2018-05-21] MEDS: methylPREDNISolone SOD SUCCI 40 MG/ML 1 ML VIAL IV SCH (17:34)
--- NOTE | 2018-05-21 18:13 | P.GSCN ---
History of Present Illness Consult date: 05/21/18 Reason for Consult: PEG tube placement History of present illness: The patient is a 82-year-old man admitted to the hospital for fever and cough and felt to have aspiration pneumonia. He also had atrial fibrillation with rapid ventricular response and was hypotensive. He has been diagnosed with some difficulty swallowing in the past and is supposed to be on nectar thick liquids. He was treated medically for his pneumonia and is felt to have a recurrent episode of aspiration. We are consult for evaluation for PEG tube. He had been on Coumadin on admission but was switched over to Ellik was which she's been taking twice a day. The patient himself is a poor historian, history is obtained from the chart and nurse Review of Systems All systems: negative (Complains that he is thirsty) Past Medical History Past Medical History: Heart Failure, Dementia, Diabetes Mellitus, GERD/Reflux, Hyperlipidemia, Hypertension, Osteoarthritis (OA), Sleep Apnea/CPAP/BIPAP, Thyroid Disorder, Vascular Disorder History of Any Multi-Drug Resistant Organisms: None Reported Past Surgical History: Unable to Obtain Additional Past Surgical History / Comment(s): Bilateral cataract surgery as wel l as left eye glaucoma surgery. Pacemaker in 05/2015 Past Anesthesia/Blood Transfusion Reactions: No Reported Reaction Past Psychological History: No Psychological Hx Reported Smoking Status: Never smoker Past Alcohol Use History: None Reported Past Drug Use History: None Reported - Past Family History Father Family Medical History: AICD/Pacemaker Mother Family Medical History: No Reported History Sister(s) Family Medical History: No Reported History Daughter(s) Family Medical History: No Reported History Son(s) Family Medical History: No Reported History Medications and Allergies Home Medications Medication Instructions Recorded Confirmed Type Acetaminophen Tab [Tylenol Tab] 650 mg PO Q4H PRN 05/15/18 05/15/18 History Artificial Tears-Hypromellose 1 drops BOTH EYES 05/15/18 05/15/18 History [Artificial Tear Drops] TID@1100,1700,2100 Bisacodyl 10 mg RECTAL DAILY PRN 05/15/18 05/15/18 History Divalproex Sodium [Depakote 375 mg PO TID@0700,1500,2300 05/15/18 05/15/18 History Sprinkle] Insulin Glargine,Hum.rec.anlog 25 unit SQ HS@199905/15/18 05/15/18 History [Lantus Solostar] Insulin Glargine,Hum.rec.anlog 40 unit SQ DAILY@0705/15/18 05/15/18 History [Lantus Solostar] Magnesium Hydroxide [Milk of 2,400 mg PO DAILY PRN 05/15/18 05/15/18 History Magnesia] Na Phos,M-B/Na Phos,Di-Ba [Fleet 133 ml RECTAL DAILY PRN 05/15/18 05/15/18 History Adult] QUEtiapine [SEROquel] 50 mg PO HS@209905/15/18 05/15/18 History Ranitidine HCl [Zantac] 150 mg PO BID@0500,1500 05/15/18 05/15/18 History Sertraline [Zoloft] 25 mg PO DAILY@0705/15/18 05/15/18 History Sertraline [Zoloft] 100 mg PO DAILY@0700 05/15/18 05/15/18 History Tamsulosin HCl [Flomax] 0.4 mg PO DAILY@0705/15/18 05/15/18 History Travoprost [Travatan Z 0.004%] 1 drop BOTH EYES HS@199905/15/18 05/15/18 Histo ry Apixaban [Eliquis] 5 mg PO BID tab 05/16/18 Rx Allergies Allergy/AdvReac Type Severity Reaction Status Date / Time No Known Allergies Allergy Verified 05/15/18 08:18 Surgical - Exam Osteopathic Statement: *. No significant issues noted on an osteopathic structural exam other than those noted in the History and Physical/Consult. Vital Signs Temp Pulse Resp BP Pulse Ox 100.2 F H 56 L 20 118/83 98 05/15/18 00:20 05/15/18 00:20 05/15/18 00:20 05/15/18 00:20 05/15/18 00:20 - General Elderly no distress, chronically ill - Neck trachea midline - Respiratory other (Bilateral rhonchi and wheezing) bilateral: wheezing - Cardiovascular Irregularly irregular - Abdomen Abdomen: soft, non tender, bowel sounds, no surgical scars Results - Labs 05/21/18 08:08 05/21/18 08:08 Abnormal Lab Results - Last 24 Hours (Table) 05/20/18 05/21/18 05/21/18 Range/Units 19:57 07:11 08:08 Plt Count 143 L (150-450) k/uL Sodium (137-145) mmol/L Potassium (3.5-5.1) mmol/L Carbon Dioxide (22-30) mmol/L BUN (9-20) mg/dL Glucose (74-99) mg/dL POC Glucose (mg/dL) 170 H 126 H (75-99) mg/dL Total Bilirubin (0.2-1.3) mg/dL Total Protein (6.3-8.2) g/dL Albumin (3.5-5.0) g/dL 05/21/18 05/21/18 05/21/18 Range/Units 08:08 11:31 17:08 Plt Count (150-450) k/uL Sodium 147 H (137-145) mmol/L Potassium 3.1 L (3.5-5.1) mmol/L Carbon Dioxide 39 H (22-30) mmol/L BUN 26 H (9-20) mg/dL Glucose 139 H (74-99) mg/dL POC Glucose (mg/dL) 221 H 155 H (75-99) mg/dL Total Bilirubin 1.4 H (0.2-1.3) mg/dL Total Protein 6.2 L (6.3-8.2) g/dL Albumin 3.0 L (3.5-5.0) g/dL Microbiology - Last 24 Hours (Table) 05/15/18 01:29 Blood Culture - Final Blood No Growth after 144 hours 05/15/18 01:29 Blood Culture - Final Blood No Growth after 144 hours Diabetes panel 05/21/18 Range/Units 08:08 Sodium 147 H (137-145) mmol/L Potassium 3.1 L (3.5-5.1) mmol/L Chloride 101 (98-107) mmol/L Carbon Dioxide 39 H (22-30) mmol/L BUN 26 H (9-20) mg/dL Creatinine 1.02 (0.66-1.25) mg/dL Glucose 139 H (74-99) mg/dL Calcium 8.5 (8.4-10.2) mg/dL AST 45 (17-59) U/L ALT 37 (21-72) U/L Alkaline Phosphatase 106 (38-126) U/L Total Protein 6.2 L (6.3-8.2) g/dL Albumin 3.0 L (3.5-5.0) g/dL Calcium panel 05/21/18 Range/Units 08:08 Calcium 8.5 (8.4-10.2) mg/dL Albumin 3.0 L (3.5-5.0) g/dL Pituitary panel 05/21/18 Range/Units 08:08 Sodium 147 H (137-145) mmol/L Potassium 3.1 L (3.5-5.1) mmol/L Chloride 101 (98-107) mmol/L Carbon Dioxide 39 H (22-30) mmol/L BUN 26 H (9-20) mg/dL Creatinine 1.02 (0.66-1.25) mg/dL Glucose 139 H (74-99) mg/dL Calcium 8.5 (8.4-10.2) mg/dL Adrenal panel 05/21/18 Range/Units 08:08 Sodium 147 H (137-145) mmol/L Potassium 3.1 L (3.5-5.1) mmol/L Chloride 101 (98-107) mmol/L Carbon Dioxide 39 H (22-30) mmol/L BUN 26 H (9-20) mg/dL Creatinine 1.02 (0.66-1.25) mg/dL Glucose 139 H (74-99) mg/dL Calcium 8.5 (8.4-10.2) mg/dL Total Bilirubin 1.4 H (0.2-1.3) mg/dL AST 45 (17-59) U/L ALT 37 (21-72) U/L Alkaline Phosphatase 106 (38-126) U/L Total Protein 6.2 L (6.3-8.2) g/dL Albumin 3.0 L (3.5-5.0) g/dL Assessment and Plan (1) Atrial fibrillation Current Visit: Yes Status: Acute Code(s): I48.91 - UNSPECIFIED ATRIAL FIBRILLATION SNOMED Code(s): 68302201 (2) Aspiration pneumonia Current Visit: Yes Status: Acute Code(s): J69.0 - PNEUMONITIS DUE TO INHALATION OF FOOD AND VOMIT SNOMED Code(s): 856929411 (3) Sepsis Current Visit: Yes Status: Acute Code(s): A41.9 - SEPSIS, UNSPECIFIED ORGANISM SNOMED Code(s): 67550511 Plan: The patient is being reevaluated tomorrow by speech pathology. If they feel that his ongoing respiratory issues are due to aspiration we'll be happy to put a feeding tube in. We'll hold the Elequis pending their recommendations. Further recommendations to follow.
[2018-05-21] MEDS: ATORVASTATIN 40 MG TAB PO SCH (19:34)
[2018-05-21] MEDS: QUEtiapine 50 MG TAB PO SCH (19:35)
[2018-05-21] MEDS: MONTELUKAST 10 MG TAB PO SCH (19:35)
[2018-05-21 20:00] LABS: Glucose,Whole Blood 108 mg/dL (75-99)
--- NOTE | 2018-05-21 20:10 | PN ---
PROGRESS NOTE DATE OF SERVICE: 05/21/2018 He had a choking episode as I was in the room when he was on Thick-it. On physical examination: Respiratory rate is 18, pulse rate 85, temperature 97.9, blood pressure 108/61, O2 saturation on 4 L by nasal cannula is 97%. HEENT is unremarkable. Chest reveals wheezing. Cardiovascular system is S1, S2. Abdomen is soft. There is no edema. IMPRESSION: 1. Aspiration type pneumonia. 2. Acute respiratory failure with hypoxia. 3. Influenza A. 4. Moderate to severe pulmonary hypertension. Would keep the patient n.p.o. as he is obviously aspirating. Continue him on antibiotics, Tamiflu, bronchodilators. Have the patient seen by surgery, so they can have a discussion regarding possible PEG tube placement in this patient who does seem to have obvious aspiration. MMODL / IJN: [id number] /
[2018-05-21] MEDS: POTASSIUM CHLORIDE 20 MEQ in WATER FOR INJECTION 1 100ML.BAG IVPB SCH (21:38)
[2018-05-21] MEDS: LATANOPROST 0.005% OPHTH DROPS 2.5 ML BTL BOTH EYES SCH (21:38)
[2018-05-21] MEDS: SODIUM CHLORIDE 0.9% 1,000 ML IV SCH (21:39)
[2018-05-22] MEDS: methylPREDNISolone SOD SUCCI 40 MG/ML 1 ML VIAL IV SCH ×3 (00:05→16:58)
[2018-05-22] MEDS: PIPERACILLIN-TAZOBACTAM 3.375 GM in SODIUM CHLORIDE 0.9% 100 ML IVPB SCH ×3 (00:05→16:58)
[2018-05-22] MEDS: POTASSIUM CHLORIDE 20 MEQ in WATER FOR INJECTION 1 100ML.BAG IVPB SCH (00:05)
[2018-05-22] MEDS: IPRATROPIUM-ALBUTEROL 3 ML NEB INHALATION SCH ×7 (00:18→23:45)
[2018-05-22] MEDS: FUROSEMIDE 10 MG/ML 4 ML VIAL IV SCH ×3 (05:18→21:40)
[2018-05-22 07:04] LABS: Glucose,Whole Blood 221 mg/dL (75-99)
[2018-05-22] MEDS: BUDESONIDE 1 MG/2 ML NEBU INHALATION SCH ×2 (07:40→20:52)
[2018-05-22] MEDS: INSULIN DETEMIR (LEVEMIR) 100 UNIT/ML SYR SQ SCH (08:10)
[2018-05-22] MEDS: INSULIN ASPART (NovoLOG) 100 UNIT/ML VIAL SQ SCH ×4 (08:11→21:36)
[2018-05-22] MEDS: DIVALPROEX SPRINKLE 125 MG CAP.SPRINK PO SCH ×3 (09:03→21:40)
[2018-05-22] MEDS: SERTRALINE 25 MG TAB PO SCH (09:03)
[2018-05-22] MEDS: TAMSULOSIN 0.4 MG CAP.ER.24H PO SCH (09:04)
[2018-05-22] MEDS: SERTRALINE 100 MG TAB PO SCH (09:04)
[2018-05-22] MEDS: guaiFENesin 600 MG TABLET.ER PO SCH ×2 (09:04→21:35)
[2018-05-22 11:47] LABS: Glucose,Whole Blood 157 mg/dL (75-99)
[2018-05-22] MEDS ORDERED: ENALAPRILAT 1.25 MG/ML 1 ML VIAL IVP PRN ×2 (12:00→12:01)
--- NOTE | 2018-05-22 12:04 | P.PN ---
Subjective Progress Note Date: 05/22/18 82-year-old male one of Dr. Jenaro Stanley's patient who has history of mild obesity history of dementia congestive heart failure hypertension hyperlipidemia and vascular disease who was transferred from [facility] because of aspiration pneumonia sepsis and A. fib with RVR with significant hypotension arrived to the emergency room found to be in A. fib with pulse rate running in the 70s and 80s patient blood pressure was significantly bit low had to hold some of his blood pressure medicine. Patient was already on gram- negative coverage originally admitted to the floor shortly after blood pressure become very low with elevated lactic acid despite using 1 L of IV fluid than 500 bolus continue to work on blood pressure in the 70s. Patient was seen by the 18 and stabilized slight bed continue IV hydration will consult pulmonary and cardiology for the A. fib at this point awaiting for the final culture. 05/16: Modified barium swallow was done yesterday by speech therapy with r ecommendations for nectar thick liquids and pured diet. Patient currently has no IV access and midline will be ordered. He has been hypotensive with systolic of 84. Patient continues to have cough with sputum production. Coumadin has been changed to eliquis by cardiology. INR this morning is 2.3. Blood sugars have been running anywhere between 131 and 300. Patient has been afebrile, heart rate in the 60s and 70s, pulse ox 96% on 3 L. Repeat blood pressure 129/80. Patient is in isolation for influenza and continued on Tamiflu. He is followed by pulmonary medicine and cardiology. 05/17: Patient has been afebrile, heart rate in the 60s to 80, pulse ox 90% on 3 L nasal cannula, blood pressure 118/74. WBC 5.8, hemoglobin 13.4, platelet count 127. Sodium 142, potassium 4.5, chloride 112, CO2 27, BUN 25 and creatinine 0.96. Blood sugars are now running between 107 and 208. Blood culture showing no growth after 48 hours. Urine cultures been finalized with genital naila. Patient is continued on Tamiflu in droplet isolation. Patient is also on Zosyn for aspiration pneumonia. Breathing status is slowly improving. Anticipate he will be ready for discharge on Tuesday. 05/18: Patient is resting in bed with head up at 45 angle appears to be in no acute distress. No respiratory distress is noted. Patient continues to have a coarse congested cough. He has been afebrile, heart rate in the 60s to 80s, blood pressure 134/77, pulse ox 96% on 3 L nasal cannula. The patient did have a run of 7 beats of PVCs. This morning his blood sugar was down to 43 and he received oral food as well as IV dextrose. Insulins will be further decreased. Plan to continue current treatment plan and possible discharge tomorrow. 05/19: A-Team was called last afternoon it due to change in mental status and drop in his pulse ox to 70%. He was given 1 dose of IV Lasix 40 mg IV push and continued on 40 every 8 hours. Patient is currently on BiPAP and pulse oxing 97% this morning. He has been transitioned to 4 L nasal cannula and pulse oxing 94%. He continues to sound congested. He does have a sitter at the bedside. He has been afebrile, heart rate in the 90s, blood pressure 112/71. Chest x-ray this morning reveals bilateral infiltrate and pleural effusions correlate for heart failure. Anticipate patient will be ready for discharge on Tuesday. 05/20: Patient has been afebrile, heart rate in the 80s, blood pressure 127/83, pulse ox 97% on 4 L nasal cannula which is improving. Patient does have slight bleeding at the nares and humidified oxygen to be added. Patient has been diuresing well and is on Lasix 40 mg IV every 8 hours. Patient will be started on clotrimazole Philip for thrush. Patient denies any complaints and states he feels well today. Nurse states the patient has had very little appetite this morning. We are anticipating that he will be ready for discharge on Tuesday back to [facility]. 05/21: Patient started on Solu-Medrol 40 mg IV every 8 hours for wheezing. He is also on DuoNeb treatments scheduled and as needed as well as Pulmicort 1 mg twice daily. He remains on IV antibiotics with Zosyn. He denies any new complaints, he has been afebrile, heart rate in the 90s to 106, blood pressure 109/71, pulse ox 90% on 4 L. Sodium is 147, potassium 3.1, chloride 101, CO2 39, BUN 26 and creatinine 1.02. Blood sugars running between 139 and 170. 4/1: Yesterday while Dr. Steven was evaluating the patient, patient had an a spiration episode. He was made nothing by mouth. Dr. Shi has been consulted for possible PEG tube placement. Speech therapy is to reevaluate the patient. He is afebrile, heart rate in the 30s, blood pressure 157/101. Pulse ox 94% on 2 L. We will add Vasotec for blood pressure control. Telemetry will be discontinued. Discharge held today. Review of Systems CONSTITUTIONAL: no fever, no chills EYES: No icterus sclerae, no conjunctivitis. EARS, NOSE, MOUTH, THROAT, and FACE: No sore throat, lymphadenopathy, carotid bruits or deformity. RESPIRATORY: no shortness of breath cough wheezes. CARDIOVASCULAR: Denies shortness of breath PND orthopnea and edema no palpitations. GASTROINTESTINAL: Denies abdominal pain with nausea no vomiting or diarrhea. GENITOURINARY: Negative for Hematuria or UTI, no kidney stones. INTEGUMENT/BREAST: Negative for any muscular injury with mild osteoarthritis.. HEMATOLOGIC/LYMPHATIC: Negative for bleed or purpura. MUSCULOSKELTAL: Negative for Myalgia or arthralgia. NEURLOGICAL: History of dementia with the mild altered mental status. Objective - Vital Signs Vital signs: Vital Signs Temp 97.9 F 05/22/18 07:00 Pulse 96 05/22/18 08:20 Resp 17 05/22/18 07:40 BP 157/101 05/22/18 07:00 Pulse Ox 94 L 05/22/18 07:00 Intake & Output 05/21/18 05/22/18 05/22/18 18:59 06:59 18:59 Intake Total 280 580 Output Total 1100 Balance 280 -520 Intake: IV 160 Sodium Chloride 0.9% 1, 160 000 ml @ 20 mls/hr IV . Q24H [facility] Rx#:[id number] Intake, IV Titration 580 Amount Piperacillin-Tazobactam 3 100 .375 gm In Sodium Chloride 0.9% 100 ml @ 25 mls/hr IVPB Q8HR [facility] Rx# :[id number] Potassium Chloride 20 meq 200 In Water For Injection 1 100ml.bag @ 50 mls/hr IVPB Q2H [facility] Rx#: [id number] Sodium Chloride 0.9% 1, 280 000 ml @ 20 mls/hr IV . Q24H [facility] Rx#:[id number] Oral 120 Output: Urine 1100 Uretheral (Loo) 1100 Other: Voiding Method Indwelling Catheter Indwelling Catheter Indwelling Catheter - Exam General Appearance: Mildly obese elderly laying in bed in no respiratory distress. Congested cough noted. Patient on nasal cannula oxygen. Neck HEENT: Supple, no lymphadenopathy, no thyroid enlargement, no carotid bruits. Lungs: Decreased breath some relative final hyposmotic crackles in the bases specially in the right side. Chest Wall: Decrease expansion with deep inspiration, coarse breath sounds bilaterally with expiratory wheeze. Heart: Irregular rate and rhythm, S1, S2 normal, no murmur, rub or gallop. Positive JVD Back: Symmetric, no curvature, ROM normal, no CVA tenderness. Abdomen: Slightly distended with no tenderness., bowel sounds active all four quadrants, no masses, no organomegaly. Extremities: Extremities normal, atraumatic, no cyanosis or edema. Pulses: 2+ and symmetric. Skin: Skin color, texture, tugor normal, no rashes or lesions. Neurologic: Alert oriented with slight confusion cranial nerves II through XII intact, no motor deficit, no abnormal balance or gait. - Labs CBC & Chem 7: 05/21/18 08:08 05/21/18 08:08 Labs: Abnormal Lab Results - Last 24 Hours (Table) 05/21/18 05/21/18 05/21/18 Range/Units 11:31 17:08 19:57 POC Glucose (mg/dL) 221 H 155 H 108 H (75-99) mg/dL 05/22/18 Range/Units 07:00 POC Glucose (mg/dL) 221 H (75-99) mg/dL Assessment and Plan Plan: 1 acute respiratory distress secondary to aspiration pneumonia, influenza, CHF and COPD. continue DuoNeb treatments, Pulmicort, Mucinex, Singulair, Solu-Medrol 40 mg every 8 hours added. 2 aspiration pneumonia: Most likely gram-negative was start patient on Zosyn. Speech therapy, Dr. Shi for possible PEG tube. 3 sepsis with improvement lactic acid continue hydration and fluid resuscitation for now. 4 influenza A patient will continue be in isolation start Tamiflu continue O2 and updraft treatment. 5 COPD exacerbation: Continue patient on DuoNeb and Pulmicort. Solu-Medrol 2 doses. 6 acute hypoxic respiratory failure requiring BiPAP secondary to acute on chronic diastolic heart failure. 7 chronic atrial fibrillation. Eliquis on hold. Discontinue Coumadin. Cardiology is following on an as-needed basis. 8 worsening memory loss: Patient apparently doing well on Seroquel had for now. 9. BPH: Remain on Flomax with no urinary retention. 10. Recurrent depression: Still on Zoloft and Seroquel. 11. type 2 diabetes: Remain on Levemir and Humalog continue patient with Accu- Chek sliding scales as well. 12. Coagulopathy secondary to Coumadin and illness. 13. DVT prophylaxis: Eliquis on hold for possible PEG tube placement. 14. GI prophylaxis: Patient will be continue on Pepcid. 15. UTI ruled out. Final culture with genital naila. CODE STATUS: DO NOT RESUSCITATE. Discharge plan: Return to [facility] Impression and plan of care have been directed as dictated by the signing phys ician. Tash Lai nurse practitioner acting as scribe for signing physician.
[2018-05-22] MEDS: CLOTRIMAZOLE TROCHE 10 MG TROCHE MUCOUS MEM SCH ×3 (12:08→21:35)
[2018-05-22] MEDS: ARTIFICIAL TEARS-HYPROMELLOSE DROPS 15 ML BTL BOTH EYES SCH ×3 (12:08→21:40)
--- NOTE | 2018-05-22 14:21 | P.PN ---
Progress Note - Text Progress Note Date: 05/22/18 The patient's speech pathology felt the swallowing was essentially unchanged. I spoke with Dr ZULEIKA Steven who feels the patient is aspirating which is causing the pneumonia so would like a PEG tube placed. I will arrange this for tomorrow. Attempting to contact the family
[2018-05-22] MEDS: FAMOTIDINE 20 MG TAB PO SCH (14:41)
[2018-05-22 16:41] LABS: Glucose,Whole Blood 201 mg/dL (75-99)
[2018-05-22 17:10] VITALS: BMI 33.8
[2018-05-22 19:48] LABS: Glucose,Whole Blood 135 mg/dL (75-99)
--- NOTE | 2018-05-22 20:24 | PN ---
PROGRESS NOTE DATE OF SERVICE: 05/22/2018 This patient is lying in bed, has an occasional cough. On physical examination, blood pressure is 142/70, respiratory rate of 15, pulse of 96, temperature 98.7. Oxygen saturation on 2 L by nasal cannula is 93%. HEENT is unremarkable. Chest reveals rhonchi bilaterally. Cardiovascular system is in S1, S2. Abdomen is soft. There is no pedal edema. Chest x-ray shows bilateral infiltrate and pleural effusion. IMPRESSION AT THIS TIME: 1. Aspiration-type pneumonia. 2. Congestive heart failure. 3. Witnessed episode of aspiration, even with Thick-It. At this point in time, would continue Pulmicort, bronchodilators, steroids, antibiotics to cover for gram-negatives as well as anaerobes. Would recommend PEG tube placement. I did discuss my thoughts with Dr. Vianey Shi, who had been consulted. Depending on how he does, we shall make further changes to his care. SKYLER / SOLON: [id number] /
[2018-05-22] MEDS: MONTELUKAST 10 MG TAB PO SCH (21:35)
[2018-05-22] MEDS: QUEtiapine 50 MG TAB PO SCH (21:35)
[2018-05-22] MEDS: ATORVASTATIN 40 MG TAB PO SCH (21:35)
[2018-05-22] MEDS: SODIUM CHLORIDE 0.9% 1,000 ML IV SCH (21:40)
[2018-05-22] MEDS: LATANOPROST 0.005% OPHTH DROPS 2.5 ML BTL BOTH EYES SCH (21:40)
[2018-05-23] MEDS: CLOTRIMAZOLE TROCHE 10 MG TROCHE MUCOUS MEM SCH ×5 (00:08→20:45)
[2018-05-23] MEDS: PIPERACILLIN-TAZOBACTAM 3.375 GM in SODIUM CHLORIDE 0.9% 100 ML IVPB SCH ×3 (00:12→17:25)
[2018-05-23] MEDS: methylPREDNISolone SOD SUCCI 40 MG/ML 1 ML VIAL IV SCH ×3 (00:12→21:04)
[2018-05-23] MEDS: FAMOTIDINE 20 MG TAB PO SCH ×2 (02:13→14:40)
[2018-05-23] MEDS: IPRATROPIUM-ALBUTEROL 3 ML NEB INHALATION SCH ×6 (03:06→23:24)
[2018-05-23] MEDS: FUROSEMIDE 10 MG/ML 4 ML VIAL IV SCH ×2 (05:14→14:38)
[2018-05-23 07:16] LABS: Glucose,Whole Blood 202 mg/dL (75-99)
[2018-05-23] MEDS: TAMSULOSIN 0.4 MG CAP.ER.24H PO SCH (07:22)
[2018-05-23] MEDS: SERTRALINE 25 MG TAB PO SCH (07:22)
[2018-05-23] MEDS: SERTRALINE 100 MG TAB PO SCH (07:22)
[2018-05-23] MEDS: DIVALPROEX SPRINKLE 125 MG CAP.SPRINK PO SCH ×3 (07:22→22:43)
[2018-05-23] MEDS: guaiFENesin 600 MG TABLET.ER PO SCH ×2 (07:23→20:53)
[2018-05-23] MEDS: INSULIN ASPART (NovoLOG) 100 UNIT/ML VIAL SQ SCH ×4 (08:12→21:04)
[2018-05-23] MEDS ORDERED: IV FLUID CONTINUATION 1,000 ML IV ONE (08:16)
[2018-05-23] MEDS ORDERED: PROPOFOL 10 MG/ML 20 ML VIAL IV ONE (08:18)
--- NOTE | 2018-05-23 08:43 | P.PCN ---
Date of Procedure: 05/23/18 Preoperative Diagnosis: Dysphagia, aspiration pneumonia Postoperative Diagnosis: same Procedure(s) Performed: EGD with PEG tube placement Anesthesia: MAC Surgeon: Vianey Shi Pathology: none sent Condition: stable Disposition: PACU Indications for Procedure: Patient presented with symptomatic aspiration pneumonia. A PEG tube was recommended by pulmonary. Description of Procedure: The patient's taken the endoscopy suite were gastroscope is passed per mouth to the third and fourth portions of the duodenum. There is thick secretions in the pharynx. The esophagus was a bout evidence of esophagitis or mass lesion. The stomach, pylorus, duodenum without evidence of polyp, mass lesion, other mucosal abnormality. The stomach was insufflated, palpated and transilluminated. A site was chosen for the PEG tube site. It was prepped and draped in the usual sterile manner. Local anesthetic was instilled into the skin and subcutaneous tissues. A small skin juanpablo was made and a introducer needle was placed into the stomach. A guidewire was placed through the introducer and grasped with a polypectomy snare. The endoscope and snare removed per mouth. A Ponsky pull PEG tube was attached to the guidewire. The guidewire and PEG tube are then brought through the abdominal wall. The PEG tube was trimmed to size and attached to the appropriate adapters. A dressing was applied. The endoscope was reinserted. The reddy was noted to seat nicely with no bleeding. He jose r erated the procedure without difficulty and is taken recovery room in satisfactory condition. PEG tube feedings may start tomorrow.
[2018-05-23] MEDS: HYDROmorphone 0.5 MG/0.5 ML SYRINGE IVP PRN ×2 (09:07→15:49)
[2018-05-23] MEDS: INSULIN DETEMIR (LEVEMIR) 100 UNIT/ML SYR SQ SCH (09:12)
[2018-05-23] MEDS: BUDESONIDE 1 MG/2 ML NEBU INHALATION SCH ×2 (09:40→20:44)
[2018-05-23 11:41] LABS: Calcium 9.2 mg/dL (8.4-10.2); Potassium 3.8 mmol/L (3.5-5.1)
[2018-05-23 11:57] LABS: Glucose,Whole Blood 193 mg/dL (75-99)
[2018-05-23] MEDS: ARTIFICIAL TEARS-HYPROMELLOSE DROPS 15 ML BTL BOTH EYES SCH ×3 (12:10→21:04)
--- NOTE | 2018-05-23 14:38 | P.PN ---
Subjective Progress Note Date: 05/23/18 82-year-old male one of Dr. Jenaro Stanley's patient who has history of mild obesity history of dementia congestive heart failure hypertension hyperlipidemia and vascular disease who was transferred from [facility] because of aspiration pneumonia sepsis and A. fib with RVR with significant hypotension arrived to the emergency room found to be in A. fib with pulse rate running in the 70s and 80s patient blood pressure was significantly bit low had to hold some of his blood pressure medicine. Patient was already on gram- negative coverage originally admitted to the floor shortly after blood pressure become very low with elevated lactic acid despite using 1 L of IV fluid than 500 bolus continue to work on blood pressure in the 70s. Patient was seen by the 18 and stabilized slight bed continue IV hydration will consult pulmonary and cardiology for the A. fib at this point awaiting for the final culture. 05/16: Modified barium swallow was done yesterday by speech therapy with r ecommendations for nectar thick liquids and pured diet. Patient currently has no IV access and midline will be ordered. He has been hypotensive with systolic of 84. Patient continues to have cough with sputum production. Coumadin has been changed to eliquis by cardiology. INR this morning is 2.3. Blood sugars have been running anywhere between 131 and 300. Patient has been afebrile, heart rate in the 60s and 70s, pulse ox 96% on 3 L. Repeat blood pressure 129/80. Patient is in isolation for influenza and continued on Tamiflu. He is followed by pulmonary medicine and cardiology. 05/17: Patient has been afebrile, heart rate in the 60s to 80, pulse ox 90% on 3 L nasal cannula, blood pressure 118/74. WBC 5.8, hemoglobin 13.4, platelet count 127. Sodium 142, potassium 4.5, chloride 112, CO2 27, BUN 25 and creatinine 0.96. Blood sugars are now running between 107 and 208. Blood culture showing no growth after 48 hours. Urine cultures been finalized with genital naila. Patient is continued on Tamiflu in droplet isolation. Patient is also on Zosyn for aspiration pneumonia. Breathing status is slowly improving. Anticipate he will be ready for discharge on Tuesday. 05/18: Patient is resting in bed with head up at 45 angle appears to be in no acute distress. No respiratory distress is noted. Patient continues to have a coarse congested cough. He has been afebrile, heart rate in the 60s to 80s, blood pressure 134/77, pulse ox 96% on 3 L nasal cannula. The patient did have a run of 7 beats of PVCs. This morning his blood sugar was down to 43 and he received oral food as well as IV dextrose. Insulins will be further decreased. Plan to continue current treatment plan and possible discharge tomorrow. 05/19: A-Team was called last afternoon it due to change in mental status and drop in his pulse ox to 70%. He was given 1 dose of IV Lasix 40 mg IV push and continued on 40 every 8 hours. Patient is currently on BiPAP and pulse oxing 97% this morning. He has been transitioned to 4 L nasal cannula and pulse oxing 94%. He continues to sound congested. He does have a sitter at the bedside. He has been afebrile, heart rate in the 90s, blood pressure 112/71. Chest x-ray this morning reveals bilateral infiltrate and pleural effusions correlate for heart failure. Anticipate patient will be ready for discharge on Tuesday. 05/20: Patient has been afebrile, heart rate in the 80s, blood pressure 127/83, pulse ox 97% on 4 L nasal cannula which is improving. Patient does have slight bleeding at the nares and humidified oxygen to be added. Patient has been diuresing well and is on Lasix 40 mg IV every 8 hours. Patient will be started on clotrimazole Philip for thrush. Patient denies any complaints and states he feels well today. Nurse states the patient has had very little appetite this morning. We are anticipating that he will be ready for discharge on Tuesday back to [facility]. 05/21: Patient started on Solu-Medrol 40 mg IV every 8 hours for wheezing. He is also on DuoNeb treatments scheduled and as needed as well as Pulmicort 1 mg twice daily. He remains on IV antibiotics with Zosyn. He denies any new complaints, he has been afebrile, heart rate in the 90s to 106, blood pressure 109/71, pulse ox 90% on 4 L. Sodium is 147, potassium 3.1, chloride 101, CO2 39, BUN 26 and creatinine 1.02. Blood sugars running between 139 and 170. 4/1: Yesterday while Dr. Steven was evaluating the patient, patient had an a spiration episode. He was made nothing by mouth. Dr. Shi has been consulted for possible PEG tube placement. Speech therapy is to reevaluate the patient. He is afebrile, heart rate in the 30s, blood pressure 157/101. Pulse ox 94% on 2 L. We will add Vasotec for blood pressure control. Telemetry will be discontinued. Discharge held today. 05/23: Patient had PEG tube placed yesterday with Dr. Shi and PEG tubes feedings are to start today. He has pulled on the PEG tube and cause some bleeding at the site. Dietitian on consult to start tube feeding recommendations today. Patient remains afebrile, heart rate in 80s, blood pressure 99/63, pulse ox 95% on 2 L. Sodium 148, potassium 3.8, chloride 105, CO2 35, BUN 46 and creatinine 1.15. Patient denies any new complaints. He remains pleasantly confused. Possible transfer to senior living tomorrow. Review of Systems CONSTITUTIONAL: no fever, no chills EYES: No icterus sclerae, no conjunctivitis. EARS, NOSE, MOUTH, THROAT, and FACE: No sore throat, lymphadenopathy, carotid bruits or deformity. RESPIRATORY: no shortness of breath cough wheezes. CARDIOVASCULAR: Denies shortness of breath PND orthopnea and edema no palpitations. GASTROINTESTINAL: Denies abdominal pain with nausea no vomiting or diarrhea. GENITOURINARY: Negative for Hematuria or UTI, no kidney stones. INTEGUMENT/BREAST: Negative for any muscular injury with mild osteoarthritis.. HEMATOLOGIC/LYMPHATIC: Negative for bleed or purpura. MUSCULOSKELTAL: Negative for Myalgia or arthralgia. NEURLOGICAL: History of dementia with the mild altered mental status. Objective - Vital Signs Vital signs: Vital Signs Temp 97.6 F 05/23/18 09:05 Pulse 86 05/23/18 09:05 Resp 17 05/23/18 09:05 BP 99/63 05/23/18 09:05 Pulse Ox 95 05/23/18 09:05 Intake & Output 05/22/18 05/23/18 05/23/18 18:59 06:59 18:59 Intake Total 300 350 Output Total 2000 400 Balance -1999 350 Weight 98 kg Intake: IV 350 Intake, IV Titration 300 Amount Piperacillin-Tazobactam 3 100 .375 gm In Sodium Chloride 0.9% 100 ml @ 25 mls/hr IVPB Q8HR [facility] Rx# :[id number] Sodium Chloride 0.9% 1, 200 000 ml @ 20 mls/hr IV . Q24H [facility] Rx#:[id number] Output: Urine 2000 400 Other: Voiding Method Indwelling Catheter Indwelling Catheter - Exam General Appearance: Mildly obese elderly laying in bed in no respiratory distress. Congested cough noted. Patient on nasal cannula oxygen. Neck HEENT: Supple, no lymphadenopathy, no thyroid enlargement, no carotid bruits. Lungs: Decreased breath some relative final hyposmotic crackles in the bases specially in the right side. Chest Wall: Decrease expansion with deep inspiration, coarse breath sounds bilaterally with expiratory wheeze. Heart: Irregular rate and rhythm, S1, S2 normal, no murmur, rub or gallop. Positive JVD Back: Symmetric, no curvature, ROM normal, no CVA tenderness. Abdomen: Soft, no tenderness., bowel sounds active all four quadrants, no masses, no organomegaly. PEG tube in place with small amount of blood at the site. Extremities: Extremities normal, atraumatic, no cyanosis or edema. Pulses: 2+ and symmetric. Skin: Skin color, texture, tugor normal, no rashes or lesions. Neurologic: Alert oriented to person, no acute abnormalities. - Labs CBC & Chem 7: 05/21/18 08:08 05/23/18 10:48 Labs: Abnormal Lab Results - Last 24 Hours (Table) 05/22/18 05/22/18 05/22/18 Range/Units 11:39 16:40 19:46 POC Glucose (mg/dL) 157 H 201 H 135 H (75-99) mg/dL 05/23/18 Range/Units 07:08 POC Glucose (mg/dL) 202 H (75-99) mg/dL Assessment and Plan Plan: 1 acute respiratory distress secondary to aspiration pneumonia, influenza, CHF and COPD. continue DuoNeb treatments, Pulmicort, Mucinex, Singulair, Solu-Medrol 40 mg every 8 hours decreased to every 12 hours. 2 aspiration pneumonia: Most likely gram-negative was start patient on Zosyn. Speech therapy, Dr. Shi has placed PEG tube. Dietitian following to make recommendations for tube feedings. Tube feedings to be initiated today. Eliquis currently on hold and until Dr. Shi clears to resume due to bleeding at the PEG tube site 3 sepsis with improvement lactic acid continue hydration and fluid resuscitation for now. 4 influenza A. Patient completed course of Tamiflu, continue O2 and updraft treatment. 5 COPD exacerbation: Continue patient on DuoNeb and Pulmicort. Solu-Medrol. 6 acute hypoxic respiratory failure requiring BiPAP secondary to acute on chronic diastolic heart failure. 7 chronic atrial fibrillation. Eliquis on hold. Discontinue Coumadin. Cardiology is following on an as-needed basis. 8 worsening memory loss: Patient apparently doing well on Seroquel had for now. 9. BPH: Remain on Flomax with no urinary retention. 10. Recurrent depression: Still on Zoloft and Seroquel. 11. type 2 diabetes: Remain on Levemir and Humalog continue patient with Accu- Chek sliding scales as well. 12. Coagulopathy secondary to Coumadin and illness. 13. DVT prophylaxis: Eliquis. 14. GI prophylaxis: Patient will be continue on Pepcid. 15. UTI ruled out. Final culture with genital naila. CODE STATUS: DO NOT RESUSCITATE. Discharge plan: Return to [facility] on Tuesday Impression and plan of care have been directed as dictated by the signing physician. Tash Lai nurse practitioner acting as scribe for signing physician.
[2018-05-23] MEDS ORDERED: SODIUM CHLORIDE 0.9% 500 ML 500 ML IV ONE (16:24)
--- NOTE | 2018-05-23 16:40 | PN ---
PROGRESS NOTE DATE OF SERVICE: 05/23/2018 This patient has been hemodynamically stable. He is lying flat in bed. He does not seem in respiratory distress and underwent PEG tube placement today. On physical examination, blood pressure is 100/63, respiratory rate is 17, pulse 86, temperature 97.6. Oxygen saturation on 2 L by nasal cannula is 95%. HEENT is unremarkable. Chest is clear. Cardiovascular system is in S1, S2. Abdomen is soft with a surgical dressing in place. There is trace edema. IMPRESSION AT THIS TIME: 1. Aspiration-type pneumonia. 2. Bronchospasm. 3. Dementia. 4. Congestive heart failure. Continue Pulmicort, bronchodilator, steroids, antibiotics. Keep him n.p.o., feed him via his PEG when able to. His prognosis is fair. MMODL / IJN: [id number] /
[2018-05-23 17:00] LABS: Glucose,Whole Blood 262 mg/dL (75-99)
[2018-05-23] MEDS ORDERED: SODIUM CHLORIDE 0.9% 1,000 ML IV ONE (19:28)
[2018-05-23 19:54] LABS: Basophils % (A) 0 %; Eosinophils % (A) 0 %; HCT 48.6 % (39.0-53.0); Hypochromasia Slight; Lymphocytes # (A) 1.2 k/uL (1.0-4.8); Lymphocytes % (A) 9 %; MCH 29.6 pg (25.0-35.0); MCHC 30.8 g/dL (31.0-37.0); MCV 96.2 fL (80.0-100.0); Mean Platelet Volume 7.4; Monocytes % (A) 8 %; Neutrophils % (A) 81 %; Platelet Count 277 k/uL (150-450); RBC 5.05 m/uL (4.30-5.90); RDW 14.1 % (11.5-15.5); WBC 12.4 k/uL (3.8-10.6)
[2018-05-23 19:55] LABS: Glucose,Whole Blood 194 mg/dL (75-99)
[2018-05-23] MEDS ORDERED: LIDOCAINE 1%-EPI 1:100,000 20 ML VIAL SQ ONE (20:00)
--- NOTE | 2018-05-23 20:28 | P.PN ---
Progress Note - Text Progress Note Date: 05/23/18 I was called due to continued oozing from the PEG tube site and hypotension.. The patient had pulled at the tube earlier today. He had been given some pain medicine and his systolic blood pressure was in the 100s and it did decrease after the pain medication. Patient is mildly anxious, appears in the same condition as when I saw him on Tuesday. Abdomen is soft, there is a ooze of unclotted blood from the skin at the PEG tube site. Minimal amount of old blood was aspirated from the stomach, less than 15 mL Assessment: Bleeding at the PEG tube site, patient has been on Elequis Plan: I'll place some sutures near the PEG tube site along with pressure dressing.. Monitor his hemoglobin. I spoke with family at bedside. Procedure: The skin was prepped with ChloraPrep. 1% lidocaine with epinephrine was instilled into the skin. 3-[address] simple sutures on either side of the PEG tube. A dressing was applied.
[2018-05-23] MEDS: ATORVASTATIN 40 MG TAB PO SCH (20:45)
[2018-05-23] MEDS: SODIUM CHLORIDE 0.9% 1,000 ML IV SCH (20:45)
[2018-05-23] MEDS: QUEtiapine 50 MG TAB PO SCH (20:54)
[2018-05-23] MEDS: MONTELUKAST 10 MG TAB PO SCH (20:54)
[2018-05-23] MEDS: LATANOPROST 0.005% OPHTH DROPS 2.5 ML BTL BOTH EYES SCH (21:03)
[2018-05-23 21:25] LABS: INR 4.2 (<1.2); Partial Thromboplastin Time 38.8 sec (22.0-30.0); Prothrombin Time 40.5 sec (9.0-12.0)
[2018-05-24] MEDS: CLOTRIMAZOLE TROCHE 10 MG TROCHE MUCOUS MEM SCH ×6 (00:20→23:21)
[2018-05-24] MEDS: IPRATROPIUM-ALBUTEROL 3 ML NEB INHALATION SCH ×5 (03:24→19:27)
[2018-05-24] MEDS: PIPERACILLIN-TAZOBACTAM 3.375 GM in SODIUM CHLORIDE 0.9% 100 ML IVPB SCH ×4 (03:31→23:19)
[2018-05-24] MEDS: FAMOTIDINE 20 MG TAB PO SCH ×2 (03:37→16:20)
[2018-05-24 07:11] LABS: Glucose,Whole Blood 217 mg/dL (75-99)
[2018-05-24] MEDS: BUDESONIDE 1 MG/2 ML NEBU INHALATION SCH ×2 (08:28→19:26)
[2018-05-24 08:36] LABS: HCT 43.2 % (39.0-53.0); HGB 13.3 gm/dL (13.0-17.5); Hypochromasia Slight; MCH 29.4 pg (25.0-35.0); MCHC 30.8 g/dL (31.0-37.0); MCV 95.6 fL (80.0-100.0); Mean Platelet Volume 6.9; Platelet Count 265 k/uL (150-450); RBC 4.52 m/uL (4.30-5.90); RDW 14.2 % (11.5-15.5); WBC 10.4 k/uL (3.8-10.6)
[2018-05-24] MEDS: INSULIN ASPART (NovoLOG) 100 UNIT/ML VIAL SQ SCH ×4 (08:37→23:17)
[2018-05-24] MEDS: methylPREDNISolone SOD SUCCI 40 MG/ML 1 ML VIAL IV SCH ×2 (08:38→23:17)
[2018-05-24] MEDS: DIVALPROEX SPRINKLE 125 MG CAP.SPRINK PO SCH ×3 (08:39→23:19)
[2018-05-24 09:07] LABS: Albumin 2.8 g/dL (3.5-5.0); Calcium 8.9 mg/dL (8.4-10.2); Potassium 3.3 mmol/L (3.5-5.1); Total Bilirubin 1.4 mg/dL (0.2-1.3); Total Protein 5.9 g/dL (6.3-8.2)
[2018-05-24] MEDS ORDERED: FUROSEMIDE 10 MG/ML 2 ML VIAL IV STA (10:03)
--- NOTE | 2018-05-24 10:06 | P.PN ---
Subjective Progress Note Date: 05/24/18 Principal diagnosis: Status post PEG tube placement The patient's postoperative day 1 PEG tube placement. He had bleeding from the PEG tube insertion site. I repeated his coag studies which showed his INR was very elevated at 4. He was given fresh frozen plasma. Nursing reports no further acute bleeding. The dressing was changes morning there was a small amount of old dried blood. He has been agitated this morning. Objective - Vital Signs Vital signs: Vital Signs Temp 98.4 F 05/24/18 07:00 Pulse 96 05/24/18 08:45 Resp 15 05/24/18 07:00 BP 117/69 05/24/18 07:00 Pulse Ox 97 05/24/18 07:00 Intake & Output 05/23/18 05/24/18 05/24/18 18:59 06:59 18:59 Intake Total 350 1309 Output Total 525 400 Balance -175 909 Weight 98 kg Intake: IV 350 Intake, IV Titration 1000 Amount Sodium Chloride 0.9% 1, 1000 000 ml @ 999 mls/hr IV . Q1H1M [facility] Rx#:[id number] Blood Product 309 Ffp 24 Cpd Unit 309 [id number] Output: Urine 525 400 Uretheral (Loo) 400 Other: Voiding Method Indwelling Catheter Indwelling Catheter Indwelling Catheter - Constitutional Constitutional Comment(s): Anxious, confused - Respiratory Respiratory: bilateral: rhonchi (Particularly right upper lobe) - Cardiovascular Rhythm: regular - Gastrointestinal General gastrointestinal: Present: normal bowel sounds, soft - Labs CBC & Chem 7: 05/24/18 07:24 05/24/18 07:24 Labs: Abnormal Lab Results - Last 24 Hours (Table) 05/23/18 05/23/18 05/23/18 Range/Units 10:48 11:30 16:59 WBC (3.8-10.6) k/uL MCHC (31.0-37.0) g/dL Neutrophils # (1.3-7.7) k/uL PT (9.0-12.0) sec INR (<1.2) APTT (22.0-30.0) sec Sodium 148 H (137-145) mmol/L Potassium (3.5-5.1) mmol/L Chloride (98-107) mmol/L Carbon Dioxide 35 H (22-30) mmol/L BUN 46 H (9-20) mg/dL Creatinine (0.66-1.25) mg/dL Glucose 230 H (74-99) mg/dL POC Glucose (mg/dL) 193 H 262 H (75-99) mg/dL Total Bilirubin (0.2-1.3) mg/dL Total Protein (6.3-8.2) g/dL Albumin (3.5-5.0) g/dL 05/23/18 05/23/18 05/23/18 Range/Units 19:37 19:53 20:59 WBC 12.4 H (3.8-10.6) k/uL MCHC 30.8 L (31.0-37.0) g/dL Neutrophils # 10.0 H (1.3-7.7) k/uL PT 40.5 H (9.0-12.0) sec INR 4.2 H (<1.2) APTT 38.8 H (22.0-30.0) sec Sodium (137-145) mmol/L Potassium (3.5-5.1) mmol/L Chloride (98-107) mmol/L Carbon Dioxide (22-30) mmol/L BUN (9-20) mg/dL Creatinine (0.66-1.25) mg/dL Glucose (74-99) mg/dL POC Glucose (mg/dL) 194 H (75-99) mg/dL Total Bilirubin (0.2-1.3) mg/dL Total Protein (6.3-8.2) g/dL Albumin (3.5-5.0) g/dL 05/24/18 05/24/18 05/24/18 Range/Units 07:05 07:24 07:24 WBC (3.8-10.6) k/uL MCHC 30.8 L (31.0-37.0) g/dL Neutrophils # (1.3-7.7) k/uL PT (9.0-12.0) sec INR (<1.2) APTT (22.0-30.0) sec Sodium 152 H (137-145) mmol/L Potassium 3.3 L (3.5-5.1) mmol/L Chloride 111 H (98-107) mmol/L Carbon Dioxide 33 H (22-30) mmol/L BUN 88 H (9-20) mg/dL Creatinine 1.73 H (0.66-1.25) mg/dL Glucose 243 H (74-99) mg/dL POC Glucose (mg/dL) 217 H (75-99) mg/dL Total Bilirubin 1.4 H (0.2-1.3) mg/dL Total Protein 5.9 L (6.3-8.2) g/dL Albumin 2.8 L (3.5-5.0) g/dL Assessment and Plan (1) Atrial fibrillation Current Visit: Yes Status: Acute Code(s): I48.91 - UNSPECIFIED ATRIAL FIBRILLATION SNOMED Code(s): 45568462 (2) Aspiration pneumonia Current Visit: Yes Status: Acute Code(s): J69.0 - PNEUMONITIS DUE TO INHALATION OF FOOD AND VOMIT SNOMED Code(s): 096600770 (3) Coagulopathy Current Visit: Yes Status: Acute Code(s): D68.9 - COAGULATION DEFECT, UNSPECIFIED SNOMED Code(s): 12491999 (4) Renal failure Current Visit: Yes Status: Acute Code(s): N19 - UNSPECIFIED KIDNEY FAILURE SNOMED Code(s): 14676631 Plan: We will start the tube feeding today. I will recheck his coag studies. Sitter for safety.
[2018-05-24] MEDS: HYDROmorphone 0.5 MG/0.5 ML SYRINGE IVP PRN ×2 (11:58→16:57)
[2018-05-24 12:06] LABS: Glucose,Whole Blood 201 mg/dL (75-99)
[2018-05-24 12:25] LABS: INR 3.1 (<1.2); Partial Thromboplastin Time 31.9 sec (22.0-30.0); Prothrombin Time 29.9 sec (9.0-12.0)
--- NOTE | 2018-05-24 12:51 | P.PN ---
Subjective Progress Note Date: 05/24/18 05/24/2018: Patient seen and examined. Patient was rapid response yesterday due to low blood pressure and low urine output. The patient's son is at bedside and states that he always had low blood pressure and his systolic runs between 60 and 110. The patient did have bleeding at his PEG tube site and he was given FFP. The patient's INR today is 4.2. The patient is resting comfortably. He states he is feeling a little bit better today. His course cough is starting to improve. The patient has been afebrile. He did get a fluid bolus yesterday due to hypotension and has not had hypotension since. Objective - Vital Signs Vital signs: Vital Signs Temp 98.4 F 05/24/18 07:00 Pulse 92 05/24/18 12:07 Resp 15 05/24/18 07:00 BP 117/69 05/24/18 07:00 Pulse Ox 97 05/24/18 07:00 Intake & Output 05/23/18 05/24/18 05/24/18 18:59 06:59 18:59 Intake Total 350 1309 Output Total 525 400 Balance -175 909 Weight 98 kg Intake: IV 350 Intake, IV Titration 1000 Amount Sodium Chloride 0.9% 1, 1000 000 ml @ 999 mls/hr IV . Q1H1M [facility] Rx#:[id number] Blood Product 309 Ffp 24 Cpd Unit 309 [id number] Output: Urine 525 400 Uretheral (Loo) 400 Other: Voiding Method Indwelling Catheter Indwelling Catheter Indwelling Catheter - Exam General: Patient is alert, poor historian, no acute distress Cardiovascular: Regular rate and rhythm, S1/S2 Lungs: Coarse breath sounds bilaterally - starting to improve Abdomen: Soft nontender nondistended positive bowel sounds Extremities: No edema - Labs CBC & Chem 7: 05/24/18 07:24 05/24/18 07:24 Labs: Abnormal Lab Results - Last 24 Hours (Table) 05/23/18 05/23/18 05/23/18 Range/Units 16:59 19:37 19:53 WBC 12.4 H (3.8-10.6) k/uL MCHC 30.8 L (31.0-37.0) g/dL Neutrophils # 10.0 H (1.3-7.7) k/uL PT (9.0-12.0) sec INR (<1.2) APTT (22.0-30.0) sec Sodium (137-145) mmol/L Potassium (3.5-5.1) mmol/L Chloride (98-107) mmol/L Carbon Dioxide (22-30) mmol/L BUN (9-20) mg/dL Creatinine (0.66-1.25) mg/dL Glucose (74-99) mg/dL POC Glucose (mg/dL) 262 H 194 H (75-99) mg/dL Total Bilirubin (0.2-1.3) mg/dL Total Protein (6.3-8.2) g/dL Albumin (3.5-5.0) g/dL 05/23/18 05/24/18 05/24/18 Range/Units 20:59 07:05 07:24 WBC (3.8-10.6) k/uL MCHC 30.8 L (31.0-37.0) g/dL Neutrophils # (1.3-7.7) k/uL PT 40.5 H (9.0-12.0) sec INR 4.2 H (<1.2) APTT 38.8 H (22.0-30.0) sec Sodium (137-145) mmol/L Potassium (3.5-5.1) mmol/L Chloride (98-107) mmol/L Carbon Dioxide (22-30) mmol/L BUN (9-20) mg/dL Creatinine (0.66-1.25) mg/dL Glucose (74-99) mg/dL POC Glucose (mg/dL) 217 H (75-99) mg/dL Total Bilirubin (0.2-1.3) mg/dL Total Protein (6.3-8.2) g/dL Albumin (3.5-5.0) g/dL 05/24/18 05/24/18 05/24/18 Range/Units 07:24 11:30 11:46 WBC (3.8-10.6) k/uL MCHC (31.0-37.0) g/dL Neutrophils # (1.3-7.7) k/uL PT 29.9 H (9.0-12.0) sec INR 3.1 H (<1.2) APTT 31.9 H (22.0-30.0) sec Sodium 152 H (137-145) mmol/L Potassium 3.3 L (3.5-5.1) mmol/L Chloride 111 H (98-107) mmol/L Carbon Dioxide 33 H (22-30) mmol/L BUN 88 H (9-20) mg/dL Creatinine 1.73 H (0.66-1.25) mg/dL Glucose 243 H (74-99) mg/dL POC Glucose (mg/dL) 201 H (75-99) mg/dL Total Bilirubin 1.4 H (0.2-1.3) mg/dL Total Protein 5.9 L (6.3-8.2) g/dL Albumin 2.8 L (3.5-5.0) g/dL Assessment and Plan Assessment: Acute hypoxic respiratory failure Community-acquired pneumonia, possible aspiration Influenza A Acute exacerbation of COPD Sepsis with hypotension, resolved with IV fluid resuscitation Moderate to severe Pulmonary hypertension with RVSP 55 mmHg, Dysphasia, s/p PEG tube Atrial fibrillation with RVR, chronic persistent BPH Depression Coumadin coagulopathy History of complete heart block, s/p PPM DM2 Hypertension Dyslipidemia LEONCIO Diastolic CHF O2 to maintain saturation greater than or equal to 90%, patient currently 98% on 3 L nasal cannula Bipap nightly and PRN - suspect underlying LEONCIO/OHS Antibiotics: Zosyn Tamiflu Pulmicort and DuoNeb's Perforomist, Mucinex, Singulair Outpatient follow up for PH and LEONCIO Blood sugar control Aspiration precautions Cardiology recommendations Continue chest physiotherapy FORESTRY FIRE AID, PT and OT Repeat CXR today Family is at bedside and updated to the plan of care
[2018-05-24] MEDS: INSULIN DETEMIR (LEVEMIR) 100 UNIT/ML SYR SQ SCH (12:53)
[2018-05-24] MEDS: SERTRALINE 100 MG TAB PO SCH (14:36)
[2018-05-24] MEDS: TAMSULOSIN 0.4 MG CAP.ER.24H PO SCH (14:36)
[2018-05-24] MEDS: SERTRALINE 25 MG TAB PO SCH (14:36)
[2018-05-24] MEDS ORDERED: PHYTONADIONE 1 MG in SODIUM CHLORIDE 0.9% 50 ML IVPB STA (15:02)
[2018-05-24] MEDS: ARTIFICIAL TEARS-HYPROMELLOSE DROPS 15 ML BTL BOTH EYES SCH ×3 (15:52→23:18)
--- NOTE | 2018-05-24 15:52 | P.PN ---
Subjective Progress Note Date: 05/24/18 82-year-old male one of Dr. Jenaro Stanley's patient who has history of mild obesity history of dementia congestive heart failure hypertension hyperlipidemia and vascular disease who was transferred from [facility] because of aspiration pneumonia sepsis and A. fib with RVR with significant hypotension arrived to the emergency room found to be in A. fib with pulse rate running in the 70s and 80s patient blood pressure was significantly bit low had to hold some of his blood pressure medicine. Patient was already on gram- negative coverage originally admitted to the floor shortly after blood pressure become very low with elevated lactic acid despite using 1 L of IV fluid than 500 bolus continue to work on blood pressure in the 70s. Patient was seen by the 18 and stabilized slight bed continue IV hydration will consult pulmonary and cardiology for the A. fib at this point awaiting for the final culture. 05/16: Modified barium swallow was done yesterday by speech therapy with r ecommendations for nectar thick liquids and pured diet. Patient currently has no IV access and midline will be ordered. He has been hypotensive with systolic of 84. Patient continues to have cough with sputum production. Coumadin has been changed to eliquis by cardiology. INR this morning is 2.3. Blood sugars have been running anywhere between 131 and 300. Patient has been afebrile, heart rate in the 60s and 70s, pulse ox 96% on 3 L. Repeat blood pressure 129/80. Patient is in isolation for influenza and continued on Tamiflu. He is followed by pulmonary medicine and cardiology. 05/17: Patient has been afebrile, heart rate in the 60s to 80, pulse ox 90% on 3 L nasal cannula, blood pressure 118/74. WBC 5.8, hemoglobin 13.4, platelet count 127. Sodium 142, potassium 4.5, chloride 112, CO2 27, BUN 25 and creatinine 0.96. Blood sugars are now running between 107 and 208. Blood culture showing no growth after 48 hours. Urine cultures been finalized with genital naila. Patient is continued on Tamiflu in droplet isolation. Patient is also on Zosyn for aspiration pneumonia. Breathing status is slowly improving. Anticipate he will be ready for discharge on Tuesday. 05/18: Patient is resting in bed with head up at 45 angle appears to be in no acute distress. No respiratory distress is noted. Patient continues to have a coarse congested cough. He has been afebrile, heart rate in the 60s to 80s, blood pressure 134/77, pulse ox 96% on 3 L nasal cannula. The patient did have a run of 7 beats of PVCs. This morning his blood sugar was down to 43 and he received oral food as well as IV dextrose. Insulins will be further decreased. Plan to continue current treatment plan and possible discharge tomorrow. 05/19: A-Team was called last afternoon it due to change in mental status and drop in his pulse ox to 70%. He was given 1 dose of IV Lasix 40 mg IV push and continued on 40 every 8 hours. Patient is currently on BiPAP and pulse oxing 97% this morning. He has been transitioned to 4 L nasal cannula and pulse oxing 94%. He continues to sound congested. He does have a sitter at the bedside. He has been afebrile, heart rate in the 90s, blood pressure 112/71. Chest x-ray this morning reveals bilateral infiltrate and pleural effusions correlate for heart failure. Anticipate patient will be ready for discharge on Tuesday. 05/20: Patient has been afebrile, heart rate in the 80s, blood pressure 127/83, pulse ox 97% on 4 L nasal cannula which is improving. Patient does have slight bleeding at the nares and humidified oxygen to be added. Patient has been diuresing well and is on Lasix 40 mg IV every 8 hours. Patient will be started on clotrimazole Philip for thrush. Patient denies any complaints and states he feels well today. Nurse states the patient has had very little appetite this morning. We are anticipating that he will be ready for discharge on Tuesday back to [facility]. 05/21: Patient started on Solu-Medrol 40 mg IV every 8 hours for wheezing. He is also on DuoNeb treatments scheduled and as needed as well as Pulmicort 1 mg twice daily. He remains on IV antibiotics with Zosyn. He denies any new complaints, he has been afebrile, heart rate in the 90s to 106, blood pressure 109/71, pulse ox 90% on 4 L. Sodium is 147, potassium 3.1, chloride 101, CO2 39, BUN 26 and creatinine 1.02. Blood sugars running between 139 and 170. 4/1: Yesterday while Dr. Steven was evaluating the patient, patient had an a spiration episode. He was made nothing by mouth. Dr. Shi has been consulted for possible PEG tube placement. Speech therapy is to reevaluate the patient. He is afebrile, heart rate in the 30s, blood pressure 157/101. Pulse ox 94% on 2 L. We will add Vasotec for blood pressure control. Telemetry will be discontinued. Discharge held today. 05/23: Patient had PEG tube placed yesterday with Dr. Shi and PEG tubes feedings are to start today. He has pulled on the PEG tube and cause some bleeding at the site. Dietitian on consult to start tube feeding recommendations today. Patient remains afebrile, heart rate in 80s, blood pressure 99/63, pulse ox 95% on 2 L. Sodium 148, potassium 3.8, chloride 105, CO2 35, BUN 46 and creatinine 1.15. Patient denies any new complaints. He remains pleasantly confused. Possible transfer to senior care tomorrow. 05/24: Dr. Shi ordered INR yesterday which came back at 4.2 and PTT 38.8. Patient is to receive fresh frozen plasma. Patient has been off Coumadin since arrival and was transitioned to eliquis by cardiology. Eliquis is also on hold. Repeat lab work reveals sodium 152, potassium 3.3, chloride 111, CO2 33, BUN 88 and creatinine 1.73. Blood sugars in the 200s. White count is 10.4, hemoglobin 13.3, platelet count 265. He has been afebrile, heart rate in the 90s to low 100s, blood pressure 117/69, pulse ox 97% on 2 L. during the night, patient was hypotensive and received IV fluids. One dose of IV Lasix 20 mg ordered for this morning. Reported that PEG tube is not functioning. Review of Systems CONSTITUTIONAL: no fever, no chills EYES: No icterus sclerae, no conjunctivitis. EARS, NOSE, MOUTH, THROAT, and FACE: No sore throat, lymphadenopathy, carotid bruits or deformity. RESPIRATORY: no shortness of breath cough wheezes. CARDIOVASCULAR: Denies shortness of breath PND orthopnea and edema no palpitations. GASTROINTESTINAL: Denies abdominal pain with nausea no vomiting or diarrhea. GENITOURINARY: Negative for Hematuria or UTI, no kidney stones. INTEGUMENT/BREAST: Negative for any muscular injury with mild osteoarthritis. HEMATOLOGIC/LYMPHATIC: Negative for bleed or purpura. MUSCULOSKELTAL: Negative for Myalgia or arthralgia. NEURLOGICAL: History of dementia with the mild altered mental status. Objective - Vital Signs Vital signs: Vital Signs Temp 98.4 F 05/24/18 07:00 Pulse 96 05/24/18 08:45 Resp 15 05/24/18 07:00 BP 117/69 05/24/18 07:00 Pulse Ox 97 05/24/18 07:00 Intake & Output 05/23/18 05/24/18 05/24/18 18:59 06:59 18:59 Intake Total 350 1309 Output Total 525 400 Balance -175 909 Weight 98 kg Intake: IV 350 Intake, IV Titration 1000 Amount Sodium Chloride 0.9% 1, 1000 000 ml @ 999 mls/hr IV . Q1H1M ONE Rx#:[id number] Blood Product 309 Ffp 24 Cpd Unit 309 [id number] Output: Urine 525 400 Uretheral (Loo) 400 Other: Voiding Method Indwelling Catheter Indwelling Catheter Indwelling Catheter - Exam General Appearance: Mildly obese elderly in bed in no respiratory distress. Congested cough noted. Patient on nasal cannula oxygen. Neck HEENT: Supple, no lymphadenopathy, no thyroid enlargement, no carotid bruits. Lungs: Decreased breath some relative final hyposmotic crackles in the bases specially in the right side. Chest Wall: Decrease expansion with deep inspiration, coarse breath sounds b ilaterally with expiratory wheeze. Heart: Irregular rate and rhythm, S1, S2 normal, no murmur, rub or gallop. Positive JVD Back: Symmetric, no curvature, ROM normal, no CVA tenderness. Abdomen: Soft, no tenderness., bowel sounds active all four quadrants, no masses, no organomegaly. Abdominal binder in place Extremities: Extremities normal, atraumatic, no cyanosis or edema. Pulses: 2+ and symmetric. Skin: Skin color, texture, tugor normal, no rashes or lesions. Neurologic: Alert oriented to person, no acute abnormalities. - Labs CBC & Chem 7: 05/24/18 07:24 05/24/18 07:24 Labs: Abnormal Lab Results - Last 24 Hours (Table) 05/23/18 05/23/18 05/23/18 Range/Units 10:48 11:30 16:59 WBC (3.8-10.6) k/uL MCHC (31.0-37.0) g/dL Neutrophils # (1.3-7.7) k/uL PT (9.0-12.0) sec INR (<1.2) APTT (22.0-30.0) sec Sodium 148 H (137-145) mmol/L Potassium (3.5-5.1) mmol/L Chloride (98-107) mmol/L Carbon Dioxide 35 H (22-30) mmol/L BUN 46 H (9-20) mg/dL Creatinine (0.66-1.25) mg/dL Glucose 230 H (74-99) mg/dL POC Glucose (mg/dL) 193 H 262 H (75-99) mg/dL Total Bilirubin (0.2-1.3) mg/dL Total Protein (6.3-8.2) g/dL Albumin (3.5-5.0) g/dL 05/23/18 05/23/18 05/23/18 Range/Units 19:37 19:53 20:59 WBC 12.4 H (3.8-10.6) k/uL MCHC 30.8 L (31.0-37.0) g/dL Neutrophils # 10.0 H (1.3-7.7) k/uL PT 40.5 H (9.0-12.0) sec INR 4.2 H (<1.2) APTT 38.8 H (22.0-30.0) sec Sodium (137-145) mmol/L Potassium (3.5-5.1) mmol/L Chloride (98-107) mmol/L Carbon Dioxide (22-30) mmol/L BUN (9-20) mg/dL Creatinine (0.66-1.25) mg/dL Glucose (74-99) mg/dL POC Glucose (mg/dL) 194 H (75-99) mg/dL Total Bilirubin (0.2-1.3) mg/dL Total Protein (6.3-8.2) g/dL Albumin (3.5-5.0) g/dL 05/24/18 05/24/18 05/24/18 Range/Units 07:05 07:24 07:24 WBC (3.8-10.6) k/uL MCHC 30.8 L (31.0-37.0) g/dL Neutrophils # (1.3-7.7) k/uL PT (9.0-12.0) sec INR (<1.2) APTT (22.0-30.0) sec Sodium 152 H (137-145) mmol/L Potassium 3.3 L (3.5-5.1) mmol/L Chloride 111 H (98-107) mmol/L Carbon Dioxide 33 H (22-30) mmol/L BUN 88 H (9-20) mg/dL Creatinine 1.73 H (0.66-1.25) mg/dL Glucose 243 H (74-99) mg/dL POC Glucose (mg/dL) 217 H (75-99) mg/dL Total Bilirubin 1.4 H (0.2-1.3) mg/dL Total Protein 5.9 L (6.3-8.2) g/dL Albumin 2.8 L (3.5-5.0) g/dL Assessment and Plan Plan: 1 acute respiratory distress secondary to aspiration pneumonia, influenza, CHF and COPD. continue DuoNeb treatments, Pulmicort, Mucinex, Singulair, Solu-Medrol 40 mg every 8 hours decreased to every 12 hours. 2 aspiration pneumonia: Most likely gram-negative was start patient on Zosyn. Speech therapy, Dr. Shi has placed PEG tube. Dietitian following to make recommendations for tube feedings. Tube feedings to be initiated today. Eliquis currently on hold. 3 sepsis with improvement lactic acid continue hydration and fluid resuscitation for now. 4 influenza A. Patient completed course of Tamiflu, continue O2 and updraft treatment. 5 COPD exacerbation: Continue patient on DuoNeb and Pulmicort. Solu-Medrol. 6 acute hypoxic respiratory failure requiring BiPAP secondary to acute on chronic diastolic heart failure. 7 chronic atrial fibrillation. Eliquis on hold. Discontinue Coumadin. Cardiology is following on an as-needed basis. 8 worsening memory loss: Patient apparently doing well on Seroquel had for now. 9. BPH: Remain on Flomax with no urinary retention. 10. Recurrent depression: Still on Zoloft and Seroquel. 11. type 2 diabetes: Remain on Levemir and Humalog continue patient with Accu- Chek sliding scales as well. 12. Coagulopathy secondary to Coumadin and illness. Status post fresh frozen plasma. Monitor INR. 13. DVT prophylaxis: Eliquis on hold due to elevated INR. 14. GI prophylaxis: Patient will be continue on Pepcid. 15. UTI ruled out. Final culture with genital naila. CODE STATUS: DO NOT RESUSCITATE. Discharge plan: Return to [facility] on on or Tuesday Impression and plan of care have been directed as dictated by the signing physician. Tash Lai nurse practitioner acting as scribe for signing physician.
[2018-05-24 17:14] LABS: Glucose,Whole Blood 210 mg/dL (75-99)
[2018-05-24] MEDS ORDERED: FAMOTIDINE 20 MG TAB PO SCH (19:26)
[2018-05-24 20:21] LABS: Glucose,Whole Blood 191 mg/dL (75-99)
[2018-05-24] MEDS: ATORVASTATIN 40 MG TAB PO SCH (21:11)
[2018-05-24] MEDS: QUEtiapine 50 MG TAB PO SCH (21:12)
[2018-05-24] MEDS: MONTELUKAST 10 MG TAB PO SCH (21:12)
[2018-05-24] MEDS: guaiFENesin 600 MG TABLET.ER PO SCH (21:15)
[2018-05-24] MEDS: LATANOPROST 0.005% OPHTH DROPS 2.5 ML BTL BOTH EYES SCH (23:19)
[2018-05-24] MEDS: SODIUM CHLORIDE 0.9% 1,000 ML IV SCH (23:21)
[2018-05-25] MEDS: HYDROmorphone 0.5 MG/0.5 ML SYRINGE IVP PRN ×2 (00:14→05:58)
[2018-05-25] MEDS: IPRATROPIUM-ALBUTEROL 3 ML NEB INHALATION SCH ×4 (00:14→10:55)
[2018-05-25] MEDS: CLOTRIMAZOLE TROCHE 10 MG TROCHE MUCOUS MEM SCH ×2 (06:00→11:56)
[2018-05-25 07:08] LABS: Glucose,Whole Blood 221 mg/dL (75-99)
[2018-05-25 07:46] VITALS: BP 95/61; RESP 14; TEMP 97.7
[2018-05-25] MEDS: BUDESONIDE 1 MG/2 ML NEBU INHALATION SCH (08:00)
[2018-05-25 08:03] VITALS: PULSE 92
[2018-05-25] MEDS: INSULIN ASPART (NovoLOG) 100 UNIT/ML VIAL SQ SCH ×2 (08:25→11:57)
[2018-05-25] MEDS: INSULIN DETEMIR (LEVEMIR) 100 UNIT/ML SYR SQ SCH (08:26)
[2018-05-25] MEDS: SERTRALINE 25 MG TAB PO SCH (08:27)
[2018-05-25] MEDS: TAMSULOSIN 0.4 MG CAP.ER.24H PO SCH (08:28)
--- NOTE | 2018-05-25 08:29 | XR ---
EXAMINATION TYPE: XR chest 1V portable DATE OF EXAM: 05/25/2018 COMPARISON: Prior chest x-ray 05/18/2018 HISTORY: Congestive heart failure, pneumonia TECHNIQUE: Single frontal view of the chest is obtained. FINDINGS: Pacemaker is stable. Patient is rotated. Heart size is unchanged. Central vascularity is p rominent, there is persistent elevation of right hemidiaphragm. No pneumothorax. There is blunting of the right costophrenic angle. IMPRESSION: Correlate for pulmonary venous hypertension and interstitial edema. Rotated exam. Follow -up recommended. There may be some improvement in patient's volume status.
[2018-05-25] MEDS: SERTRALINE 100 MG TAB PO SCH (08:30)
[2018-05-25] MEDS: DIVALPROEX SPRINKLE 125 MG CAP.SPRINK PO SCH (08:30)
[2018-05-25] MEDS: methylPREDNISolone SOD SUCCI 40 MG/ML 1 ML VIAL IV SCH (08:31)
[2018-05-25 08:33] LABS: HCT 40.8 % (39.0-53.0); HGB 12.8 gm/dL (13.0-17.5); MCH 29.9 pg (25.0-35.0); MCHC 31.5 g/dL (31.0-37.0); Mean Platelet Volume 7.4; Platelet Count 259 k/uL (150-450); RBC 4.29 m/uL (4.30-5.90); RDW 14.4 % (11.5-15.5); WBC 19.9 k/uL (3.8-10.6)
[2018-05-25 08:35] LABS: INR 1.2 (<1.2); Partial Thromboplastin Time 24.9 sec (22.0-30.0); Prothrombin Time 12.8 sec (9.0-12.0)
[2018-05-25 08:53] LABS: Potassium 3.3 mmol/L (3.5-5.1)
[2018-05-25] MEDS ORDERED: FUROSEMIDE 10 MG/ML 2 ML VIAL IV STA (09:20)
[2018-05-25] MEDS: PIPERACILLIN-TAZOBACTAM 3.375 GM in SODIUM CHLORIDE 0.9% 100 ML IVPB SCH (09:37)
[2018-05-25] MEDS ORDERED: ACETAMINOPHEN ORAL SUSP 160 MG/5 ML CUP PO PRN (10:31)
[2018-05-25 11:36] LABS: Glucose,Whole Blood 248 mg/dL (75-99)
[2018-05-25] MEDS: ARTIFICIAL TEARS-HYPROMELLOSE DROPS 15 ML BTL BOTH EYES SCH (11:56)
[2018-05-25] MEDS ORDERED: ACETAMINOPHEN ORAL SUSP (PEDS) 3,840 MG/120 ML BOTTLE PO PRN (12:01)
--- NOTE | 2018-05-25 12:30 | P.DS ---
Providers Date of admission: 05/15/18 00:18 Expected date of discharge: 05/25/18 Attending physician: Chaka Zuniga Consults: 05/15/18 10:35 Consult Physician Routine Consulting Provider: Lawson Manley Consult Reason/Comments: afib rvr reported Do you want consulting provider notified?: Yes Consult Physician Routine Consulting Provider: Trung Steven Consult Reason/Comments: aspiration pn Do you want consulting provider notified?: Yes 05/21/18 14:56 Consult Physician Routine Consulting Provider: Kirit Hanna Consult Reason/Comments: possible peg tube polacement Do you want consulting provider notified?: Yes Primary care physician: [facility] Course: 82-year-old male one of Dr. Jenaro Stanley's patient who has history of mild obesity history of dementia congestive heart failure hypertension hyperlipidemia and vascular disease who was transferred from [facility] because of aspiration pneumonia sepsis and A. fib with RVR with significant hypotension arrived to the emergency room found to be in A. fib with pulse rate running in the 70s and 80s patient blood pressure was significantly bit low had to hold some of his blood pressure medicine. Patient was already on gram- negative coverage originally admitted to the floor shortly after blood pressure become very low with elevated lactic acid despite using 1 L of IV fluid than 500 bolus continue to work on blood pressure in the 70s. Patient was seen by the 18 and stabilized slight bed continue IV hydration will consult pulmonary and cardiology for the A. fib at this point awaiting for the final culture. 05/16: Modified barium swallow was done yesterday by speech therapy with recommendations for nectar thick liquids and pured diet. Patient currently has no IV access and midline will be ordered. He has been hypotensive with systolic of 84. Patient continues to have cough with sputum production. Coumadin has been changed to eliquis by cardiology. INR this morning is 2.3. Blood sugars have been running anywhere between 131 and 300. Patient has been afebrile, heart rate in the 60s and 70s, pulse ox 96% on 3 L. Repeat blood pressure 129/80. Patient is in isolation for influenza and continued on Tamiflu. He is followed by pulmonary medicine and cardiology. 05/17: Patient has been afebrile, heart rate in the 60s to 80, pulse ox 90% on 3 L nasal cannula, blood pressure 118/74. WBC 5.8, hemoglobin 13.4, platelet count 127. Sodium 142, potassium 4.5, chloride 112, CO2 27, BUN 25 and creatinine 0.96. Blood sugars are now running between 107 and 208. Blood culture showing no growth after 48 hours. Urine cultures been finalized with genital naila. Patient is continued on Tamiflu in droplet isolation. Patient is also on Zosyn for aspiration pneumonia. Breathing status is slowly improving. Anticipate he will be ready for discharge on Tuesday. 05/18: Patient is resting in bed with head up at 45 angle appears to be in no acute distress. No respiratory distress is noted. Patient continues to have a coarse congested cough. He has been afebrile, heart rate in the 60s to 80s, blood pressure 134/77, pulse ox 96% on 3 L nasal cannula. The patient did have a run of 7 beats of PVCs. This morning his blood sugar was down to 43 and he received oral food as well as IV dextrose. Insulins will be further decreased. Plan to continue current treatment plan and possible discharge tomorrow. 05/19: A-Team was called last afternoon it due to change in mental status and drop in his pulse ox to 70%. He was given 1 dose of IV Lasix 40 mg IV push and continued on 40 every 8 hours. Patient is currently on BiPAP and pulse oxing 97% this morning. He has been transitioned to 4 L nasal cannula and pulse oxing 94%. He continues to sound congested. He does have a sitter at the bedside. He has been afebrile, heart rate in the 90s, blood pressure 112/71. Chest x-ray this morning reveals bilateral infiltrate and pleural effusions correlate for heart failure. Anticipate patient will be ready for discharge on Tuesday. 05/20: Patient has been afebrile, heart rate in the 80s, blood pressure 127/83, pulse ox 97% on 4 L nasal cannula which is improving. Patient does have slight bleeding at the nares and humidified oxygen to be added. Patient has been diuresing well and is on Lasix 40 mg IV every 8 hours. Patient will be started on clotrimazole Philip for thrush. Patient denies any complaints and states he feels well today. Nurse states the patient has had very little appetite this morning. We are anticipating that he will be ready for discharge on Tuesday back to [facility]. 05/21: Patient started on Solu-Medrol 40 mg IV every 8 hours for wheezing. He is also on DuoNeb treatments scheduled and as needed as well as Pulmicort 1 mg twice daily. He remains on IV antibiotics with Zosyn. He denies any new complaints, he has been afebrile, heart rate in the 90s to 106, blood pressure 109/71, pulse ox 90% on 4 L. Sodium is 147, potassium 3.1, chloride 101, CO2 39, BUN 26 and creatinine 1.02. Blood sugars running between 139 and 170. 05/22: Yesterday while Dr. Steven was evaluating the patient, patient had an aspiration episode. He was made nothing by mouth. Dr. Shi has been consulted for possible PEG tube placement. Speech therapy is to reevaluate the patient. He is afebrile, heart rate in the 30s, blood pressure 157/101. Pulse ox 94% on 2 L. We will add Vasotec for blood pressure control. Telemetry will be discontinued. Discharge held today. 05/23: Patient had PEG tube placed yesterday with Dr. Shi and PEG tubes feedings are to start today. He has pulled on the PEG tube and cause some bleeding at the site. Dietitian on consult to start tube feeding recommendations today. P atient remains afebrile, heart rate in 80s, blood pressure 99/63, pulse ox 95% on 2 L. Sodium 148, potassium 3.8, chloride 105, CO2 35, BUN 46 and creatinine 1.15. Patient denies any new complaints. He remains pleasantly confused. Possible transfer to detention tomorrow. 05/24: Dr. Shi ordered INR yesterday which came back at 4.2 and PTT 38.8. Patient is to receive fresh frozen plasma. Patient has been off Coumadin since arrival and was transitioned to eliquis by cardiology. Eliquis is also on hold. Repeat lab work reveals sodium 152, potassium 3.3, chloride 111, CO2 33, BUN 88 and creatinine 1.73. Blood sugars in the 200s. White count is 10.4, hemoglobin 13.3, platelet count 265. He has been afebrile, heart rate in the 90s to low 100s, blood pressure 117/69, pulse ox 97% on 2 L. during the night, patient was hypotensive and received IV fluids. One dose of IV Lasix 20 mg ordered for this morning. Reported that PEG tube is not functioning. 05/25: Again this morning, patient's respiratory status is very wet and 1 dose of IV Lasix given this morning and 20 mg. Patient has a functioning PEG tube but it is occasionally getting plugged. He did receive his morning medications he PEG tube. Blood pressure remains on the low side at 96 systolic. Last time patient received Dilaudid his blood pressure dropped to 78 systolic. We have added and liquid Tylenol as needed. He has been afebrile, heart rate in the 90s, pulse ox 92% on 4 L. Blood pressure 95/61. WBC 19.9, hemoglobin 12.8, platelet count 259, INR 1.2. Sodium 156, potassium 3.3, chloride 116, CO2 35, BUN 85 and creatinine 1.63. Blood sugars running anywhere between 191 and 248. Patient's and daughters are at the bedside and discussed patient's current condition and prognosis which is poor. Patient continues to have difficulty with aspiration, worsening renal function and electrolytes. Patient remains pleasantly confused. Decision was made for hospice care and patient will be transferred to the [facility] once all arrangements are completed. Discharge diagnoses: 1 acute respiratory failure secondary to aspiration pneumonia, influenza, CHF and COPD. 2 aspiration pneumonia: Most likely gram-negative 3 sepsis with lactic acidosis 4 influenza A. 5 COPD exacerbation 6 acute hypoxic respiratory failure requiring BiPAP secondary to acute on chronic diastolic heart failure. 7 chronic atrial fibrillation. 8 worsening memory loss 9. BPH, Frank catheter 10. Recurrent depression 11. type 2 diabetes 12. Coagulopathy secondary to Coumadin and illness. 13. UTI ruled out. Final culture with genital naila. Discharge plan: [facility] Impression and plan of care have been directed as dictated by the signing physician. Tash Lai nurse practitioner acting as scribe for signing physician. Patient Condition at Discharge: Stable Plan - Discharge Summary New Discharge Prescriptions: New LORazepam ORAL CONC [Ativan Intensol] 2 mg PO Q4HR PRN #30 ml PRN Reason: Anxiety Ipratropium-Albuterol Nebulize [Duoneb 0.5 mg-3 mg/3 ml Soln] 3 ml INHALATION RT-QID PRN ampul.neb PRN Reason: Shortness Of Breath Or Wheezing Atropine Ophth Soln 1% 5Ml [Isopto Atropine 1% 5Ml] 2 drops PO Q4HR PRN #1 bottle PRN Reason: Secretions Budesonide [Pulmicort] 1 mg INHALATION RT-BID #60 nebu MORPHINE ORAL YADIRA CONC 20mg/mL [Roxanol Oral Soln Conc 20MG/ML] 5 mg PO Q4H PRN #30 ml PRN Reason: Pain Acetaminophen Oral Susp [Tylenol] 650 mg PO Q6H PRN cup PRN Reason: Fever Continue Bisacodyl 10 mg RECTAL DAILY PRN PRN Reason: Constipation Artificial Tears-Hypromellose [Artificial Tear Drops] 1 drops BOTH EYES TID@1100,1700,2100 Ranitidine HCl [Zantac] 150 mg PO BID@0500,1500 Travoprost [Travatan Z 0.004%] 1 drop BOTH EYES HS@2000 Magnesium Hydroxide [Milk of Magnesia] 2,400 mg PO DAILY PRN PRN Reason: Constipation Divalproex Sodium [Depakote Sprinkle] 375 mg PO TID@0700,1500,2300 #90 cap.sprink Sertraline [Zoloft] 25 mg PO DAILY@0700 #30 tab Sertraline [Zoloft] 100 mg PO DAILY@0700 #30 tab Discontinued Na Phos,M-B/Na Phos,Di-Ba [Fleet Adult] 133 ml RECTAL DAILY PRN PRN Reason: Constipation Acetaminophen Tab [Tylenol Tab] 650 mg PO Q4H PRN PRN Reason: Pain Or Fever > 100.5 Tamsulosin HCl [Flomax] 0.4 mg PO DAILY@0700 QUEtiapine [SEROquel] 50 mg PO HS@2100 Insulin Glargine,Hum.rec.anlog [Lantus Solostar] 40 unit SQ DAILY@0700 Insulin Glargine,Hum.rec.anlog [Lantus Solostar] 25 unit SQ HS@2000 Warfarin Sodium [Coumadin] 6 mg PO HS@2100 Discharge Medication List Artificial Tears-Hypromellose [Artificial Tear Drops] 1 drops BOTH EYES TID@1100,1700,2100 05/15/18 [History] Bisacodyl 10 mg RECTAL DAILY PRN 05/15/18 [History] Magnesium Hydroxide [Milk of Magnesia] 2,400 mg PO DAILY PRN 05/15/18 [History] Ranitidine HCl [Zantac] 150 mg PO BID@0500,1500 05/15/18 [History] Travoprost [Travatan Z 0.004%] 1 drop BOTH EYES HS@2000 05/15/18 [History] Acetaminophen Oral Susp [Tylenol] 650 mg PO Q6H PRN cup 05/25/18 [Rx] Atropine Ophth Soln 1% 5Ml [Isopto Atropine 1% 5Ml] 2 drops PO Q4HR PRN #1 bottle 05/25/18 [Rx] Budesonide [Pulmicort] 1 mg INHALATION RT-BID #60 nebu 05/25/18 [Rx] Divalproex Sodium [Depakote Sprinkle] 375 mg PO TID@0700,1500,2300 #90 cap.sprink 05/25/18 [Rx] Ipratropium-Albuterol Nebulize [Duoneb 0.5 mg-3 mg/3 ml Soln] 3 ml INHALATION RT-QID PRN ampul.neb 05/25/18 [Rx] LORazepam ORAL CONC [Ativan Intensol] 2 mg PO Q4HR PRN #30 ml 05/25/18 [Rx] MORPHINE ORAL YADIRA CONC 20mg/mL [Roxanol Oral Soln Conc 20MG/ML] 5 mg PO Q4H PRN #30 ml 05/25/18 [Rx] Sertraline [Zoloft] 25 mg PO DAILY@0700 #30 tab 05/25/18 [Rx] Sertraline [Zoloft] 100 mg PO DAILY@0700 #30 tab 05/25/18 [Rx] Follow up Appointment(s)/Referral(s): Jenaro Stanley MD [Primary Care Provider] - As Needed Activity/Diet/Wound Care/Special Instructions: keep frakn Discharge Disposition: [facility] TO HOSPICE MED FACILTY
[2018-05-25] MEDS ORDERED: SCOPOLAMINE 1.5MG/72HR PATCH TRANSDERM SCH (13:30)
--- NOTE | 2018-05-26 09:21 | CDI ---
Documentation Clarification Form Date: 05/26/2018 8:08:00 AM From: Juana Roth Kelsy Palacio, Outpatient Coder Hours-8:30 am & 5 pm MKim Admit Date: 05/15/2018 12:18:00 AM Patient Name: Doug Gutierrez Visit Number: [id number] Discharge Date: 05/25/2018 3:40:00 PM ATTENTION: The Clinical Documentation Specialists (CDI) and [facility] Coding Staff appreciate your assistance in clarifying documentation. Please respond to the clarification below the line at the bottom and electronically sign. The CDI & [facility] Coding staff will review the response and follow-up if needed. Please note: Queries are made part of the Legal Health Record. If you have any questions, please contact the author of this message via ITS. Dr. Chaka Zuniga The patient presented with the following- Sepsis, Asp PNA, ARF, Hypotension Clinical Indicators: WBC 11.9, LA 1.3 Blood cultures: No growth Vitals signs on admission: T 100.2, BP 118/83, AZ 56, RR 20 Other Clinical Indicators: Treatment: IV Abx In your professional opinion, please clarify if these findings signify one of the following conditions, if known: Condition Sepsis due to infectious process Severe Sepsis Septic Shock Other, please specify Unable to determine MTDD
== END 2018-05-25 15:40 | disposition hospice, inpatient (51) | DRG 871 ==
LOC: EC 00:04 → 3NMEDONC 00:18 → 4SSUR 02:07
PROVIDERS: ADMIT Internal Medicine Geriatric Medicine; ATTEND Internal Medicine Geriatric Medicine
PROC: 05HF33Z Insertion of Infusion Device into Left Cephalic Vein, Percutaneous Approach (ICD-10-PCS; 2018-05-16)
PROC: 5A09357 Assistance with Respiratory Ventilation, Less than 24 Consecutive Hours, Continuous Positive Airway Pressure (ICD-10-PCS; principal; 2018-05-18)
PROC: 0DH63UZ Insertion of Feeding Device into Stomach, Percutaneous Approach (ICD-10-PCS; 2018-05-23)
PROC: 3E0G76Z Introduction of Nutritional Substance into Upper GI, Via Natural or Artificial Opening (ICD-10-PCS; 2018-05-23)
PROC: 30233K1 Transfusion of Nonautologous Frozen Plasma into Peripheral Vein, Percutaneous Approach (ICD-10-PCS; 2018-05-24)
DX: A41.9 Sepsis, unspecified organism (principal); J69.0 Pneumonitis due to inhalation of food and vomit; J96.01 Acute respiratory failure with hypoxia; I50.33 Acute on chronic diastolic (congestive) heart failure; I48.1 Persistent atrial fibrillation; J44.1 Chronic obstructive pulmonary disease with (acute) exacerbation; D68.9 Coagulation defect, unspecified; F33.9 Major depressive disorder, recurrent, unspecified; E87.2 Acidosis; D68.32 Hemorrhagic disorder due to extrinsic circulating anticoagulants; R13.10 Dysphagia, unspecified; I95.9 Hypotension, unspecified; I11.0 Hypertensive heart disease with heart failure; I27.20 Pulmonary hypertension, unspecified; I08.3 Combined rheumatic disorders of mitral, aortic and tricuspid valves; N19 Unspecified kidney failure; E11.9 Type 2 diabetes mellitus without complications; F03.90 Unspecified dementia, unspecified severity, without behavioral disturbance, psychotic disturbance, mood disturbance, and anxiety; K21.9 Gastro-esophageal reflux disease without esophagitis; G47.33 Obstructive sleep apnea (adult) (pediatric); E78.5 Hyperlipidemia, unspecified; M19.90 Unspecified osteoarthritis, unspecified site; E07.9 Disorder of thyroid, unspecified; E66.9 Obesity, unspecified; N40.0 Benign prostatic hyperplasia without lower urinary tract symptoms; R47.02 Dysphasia; B37.9 Candidiasis, unspecified; T45.515A Adverse effect of anticoagulants, initial encounter; Z51.5 Encounter for palliative care; Z95.0 Presence of cardiac pacemaker; Z71.3 Dietary counseling and surveillance; Z68.33 Body mass index [BMI] 33.0-33.9, adult; Z66 Do not resuscitate; Z98.42 Cataract extraction status, left eye; Z98.41 Cataract extraction status, right eye; Z79.01 Long term (current) use of anticoagulants; Z82.49 Family history of ischemic heart disease and other diseases of the circulatory system; Z79.899 Other long term (current) drug therapy; Z79.890 Hormone replacement therapy; Z79.4 Long term (current) use of insulin
CPT/HCPCS: 36410; 36415; 43246; 71045; 74230; 76937; 80048; 80053; 81001; 83605; 83735; 83880; 85025; 85027; 85610; 85730; 86850; 86900; 86901; 87040; 87086; 87502; 93005; 93306; 94640; 94660; 94667; 94668; 94760; 96365; 99285